=== PATIENT | female | born 1940 | race Caucasian/White ===

== ENCOUNTER 2017-09-27 17:24 | Inpatient (IN) | payer BC, OTHER ==
[~2017-09-27] VITALS: Ht 162.6 cm; Wt 87.6 kg
[~2017-09-27 17:24] MED LIST: ATOR10TA82 PO; CALC600T9 PO; CANA1TAB PO; INSDGI SQ; LISI-787 PO; METO-478 PO; OMEG-112 PO
[2017-09-27 21:00] VITALS: BP 115/70; PULSE 84; TEMP 36.7; O2SAT 97; BMI 31.6
[2017-09-27] MEDS ORDERED: LISIPOW PO (21:17)
[2017-09-27] MEDS ORDERED: CIPR1TAB11 PO (21:17)
[2017-09-27] MEDS ORDERED: EMPA1TAB3 PO (21:17)
[2017-09-27] MEDS ORDERED: INSDGI SC (21:17)
[2017-09-27] MEDS ORDERED: PIPERACILL/TAZOBAC IV 3.375 GM in DEXTROSE 5% 100ML 100 ML IV STA (22:13)
[2017-09-27] MEDS ORDERED: MAGNESIUM HYDROXIDE SUSP 30 ML UDC PO PRN (22:15)
[2017-09-27] MEDS ORDERED: ONDANSETRON INJ 2 MG/ML 2 ML VIAL IV PRN (22:15)
[2017-09-27] MEDS ORDERED: ALUMINUM/MAGNESIUM/SIMETH (MAALOX MAX) 30 ML UDC PO PRN (22:15)
[2017-09-27] MEDS ORDERED: PIPERACILL/TAZOBAC CONSULT ACTIVE PRN (22:15)
[2017-09-27] MEDS ORDERED: ACETAMINOPHEN 325 MG TAB PO PRN (22:15)
[2017-09-27] MEDS ORDERED: POLYETHYLENE (MIRALAX) 17 GM PACK PO PRN (22:15)
[2017-09-27] MEDS ORDERED: GLUCOSE 10 TABS/TUBE PO PRN (22:30)
[2017-09-27] MEDS ORDERED: GLUCAGON FOR INJ 1 MG VIAL SQ PRN (22:30)
[2017-09-27] MEDS ORDERED: GLUCOSE 40% GEL 15 GM TUBE PO PRN (22:30)
[2017-09-27] MEDS ORDERED: DEXTROSE 50% 50 ML SYR IV PRN (22:30)
--- NOTE | 2017-09-27 22:34 | History and Physical ---
History & Physical Date & Time of Service: Sep 27, 2017 at 22:17 Chief Complaint: Obstructing L Kidney Stone Primary Care Physician: Melissa Santos M.D. History of Present Illness Source: patient, hospital records 76 year old female admitted as a direct admit from [facility] secondary to left sided stone and pyelonephritis On Saturday she started having left sided back pain. She went to the doctor on and was diagnosed with pyelonephritis and was started on cipro. Today after getting off the toilet she felt dizzy and fell (no post ictal symptoms, urinary/bowel incontinence). She also had associated chills and nausea. She denied any dysuria or hematuria. She was therefore brought to the ED in [place] by ambulance. In the ED she was had a CT scan of her abdomen/pelvis which showed an left sided 8mm calculus w/ associated left hydronephrosis and fat stranding in the left lower quadrant. She had a WCC of 9.6, Creat of 2.0, BUN 34, lactic acid of 1.5, trop of .16 and an EKG showed sinus tachycardia. She was given a gram of IV rocephin, 1 L of IVF and Zofran for nausea Past Medical/Surgical History Medical Problems: (1) ARF (acute renal failure) (2) Cellulitis (3) Dehydration (4) Diverticulitis (5) Hyperkalemia (6) Kidney stone (7) Sinusitis (8) Uremia (9) Weakness (10) Weakness Surgical Problems: (1) History of abdominal surgery Family History Dad- CT Mom- MM Brother- CT at 48 Social History Smoking Status: Former Smoker Smokeless Tobacco Use: No Alcohol Use: none Drug Use: none Marital Status: Housing status: lives with significant other Occupational Status: retired Immunizations History of Influenza Vaccine: Unknown History of Tetanus Vaccine?: Unknown History of Pneumococcal: Unknown History of Hepatitis B Vaccine: Unknown Allergies Coded Allergies: Sulfa Antibiotics (Verified Allergy, Unknown, ., 10/13/13) Home Medications Scheduled Atorvastatin (Lipitor), 10 MG PO HS Ciprofloxacin Tab (Cipro), 500 MG PO BID Empagliflozin (Jardiance), 25 MG PO DAILY Insulin Glargine (Lantus), 45 SC QPM Lisinopril (Bulk) (Lisinopril), 20 MG PO DAILY Metoprolol Succinate (Toprol Xl), 50 MG PO HS Review of Systems Constitutional: + chills, + weakness, + fatigue, No fever, No weight loss Eyes: No worsening of vision, No eye pain ENT: No hearing loss, No unusual epistaxis, No sore throat Respiratory: No cough, No sputum, No shortness of breath, No dyspnea on exertion Cardiovascular: No chest pain, No edema, No palpitations Abdomen: + pain, + nausea, + diarrhea, No vomiting, No constipation, No GI bleeding Musculoskeletal: No joint pain, No muscle pain, No swelling, No calf pain Genitourinary - Female: No dysuria, No urinary frequency, No urinary urgency Endocrine: No fatigue, No excessive thirst, No excessive urination Hematologic / Lymphatic: No abnormal bleeding/bruising, No clotting problems, No swollen lymph nodes Physical Exam Vital Signs Date Time Temp Pulse Resp B/P (MAP) Pulse Ox O2 Delivery O2 Flow Rate FiO2 09/27/17 21:00 36.7 84 16 115/70 97 Room Air General Appearance: WD/WN, no apparent distress Head: normocephalic, atraumatic Eyes: normal inspection, PERRL ENT: hearing grossly normal, pharynx normal Neck: supple, no JVD, no carotid bruits, trachea midline Respiratory/Chest: lungs clear, no respiratory distress, no accessory muscle use Cardiovascular: regular rate, rhythm, no murmur, normal peripheral pulses Abdomen/GI: normal bowel sounds, soft, + tenderness (left upper quadrant tenderness) Back: normal inspection, no CVA tenderness, no muscle spasm Extremities/Musculoskelatal: normal inspection, no calf tenderness, no pedal edema, non-tender Neurologic/Psych: alert, normal mood/affect, normal reflexes, oriented x 3 Skin: normal color, warm/dry, no rash Diagnostics Laboratory Results Results Past 24 Hours Test 09/27/17 22:03 09/27/17 22:12 Range/Units Bedside Glucose 247 70-90 mg/dl Impression Assessment and Plan 76 year old female with a PMH of DM, HTN and HLD is here as a direct admit from [place] secondary to left ureteral stone and pyelonephritis Left ureteral stone w/ associated pyelonephritis - Zosyn 3.375 q6 IV - Maintenance IVF at 120mls/hr - Zofran 4mg q4 prn for nausea - Urology consult placed Elevated troponin - EKG showed sinus tachycardia - trop .16 - no hx of CT or angina - trend troponins q8 - echo ordered - check lipids and HbA1c SAVAGE on CKD Stage 4 - IVF of 120 ml/hr - Creatinine 20 and GFR 26 DMT2 - poc glucose 247 - give 40 units of lantus - hold home meds - order HbA1c - check bsg q4 HTN - continue lisinopril and metoprolol HLD - continue statin - check lipids DVT prophylaxis - lovenox 30mg subq FULL CODE Attending addendum: I have physically seen this patient, have supervised the medical residents activities, and agree with the H&P unless as otherwise noted. Assessment and Plan: Elevated troponin-- The patient will be admitted to telemetry for serial cardiac enzymes, serial EKG's, cardiac rhythm monitoring and a 2-D echocardiogram with Dopplers. Check a fasting lipid panel and hemoglobin A1c. Consult cardiology. Left ureteral stone/pyelonephritis/renal insufficiency-- Transferred from [facility] where initial study was performed. Normal saline at 100 mils per hour. Follow urine culture and sensitivity. Zosyn 3.375 mg IV every 12 hours. Zofran 4 mg IV every 6 hours as needed. Consult urology. Hypertension/renal insufficiency-- hold lisinopril, continue metoprolol. Remaining medications as above. . Advanced Directives Existing Advance Directive: No Existing Living Will: No Existing Power of Labeling Machine Operator: No Resuscitation Status VTE Prophylaxis Will order VTE Prophylaxis: Yes Social Service Consult None Apply
[2017-09-27] MEDS: SODIUM CHLORIDE 0.9% 1000ML 1,000 ML IV SCH (22:40)
[2017-09-27] MEDS: INSULIN GLARGINE SOLOSTAR 100 UNITS/ML 3 ML PEN SC SCH (22:45)
[2017-09-27 23:25] VITALS: BP 97/62; PULSE 92; TEMP 36.8; O2SAT 97
[2017-09-28] VITALS (9 sets, daily range): BP systolic 107–150; BP diastolic 63–80; PULSE 83–103; TEMP 37–37.8; O2SAT 92–97
[2017-09-28 00:01] LABS: BASO % 0.1 %; BASO ABS # 0.01 K/uL (0-0.2); EOS % 0.1 %; EOS ABS # 0.01 K/uL (0-0.5); HEMATOCRIT 34.7 % (37-47); HEMOGLOBIN 11.7 g/dL (12.0-16.0); IG# 0.03 K/uL (0.00-0.02); LYMPH % 11.6 %; LYMPH ABS # 0.94 K/uL (1.2-3.4); MEAN CELL VOLUME 90.4 fL (80-100); MEAN CORPUSCULAR HEMOGLOBIN 30.5 pg (25-34); MEAN CORPUSCULAR HGB CONC 33.7 g/dl (32-36); MEAN PLATELET VOLUME 11.9 fL (7.4-10.4); MONO % 4.3 %; MONO ABS # 0.35 K/uL (0.11-0.59); NEUT % 83.5 %; NEUT ABS # 6.75 K/uL (1.4-6.5); PLATELET COUNT 181 K/uL (130-400); RED CELL DISTRIBUTION WIDTH CV 14.6 % (11.5-14.5); RED CELL DISTRIBUTION WIDTH SD 48.6 fL (36.4-46.3); WHITE BLOOD COUNT 8.09 K/uL (4.8-10.8)
[2017-09-28 00:11] LABS: ALBUMIN 2.6 gm/dl (3.4-5.0); CALCIUM 8.2 mg/dl (8.5-10.1); CREATININE 1.78 mg/dl (0.60-1.20); TOTAL PROTEIN 6.6 gm/dl (6.4-8.2)
[2017-09-28 00:13] LABS: POTASSIUM 3.9 mmol/L (3.5-5.1)
[2017-09-28] MEDS: SODIUM CHLORIDE 0.9% 1000ML 1,000 ML IV SCH ×3 (06:14→17:28)
[2017-09-28] MEDS: PIPERACILL/TAZOBAC IV 3.375 GM in DEXTROSE 5% 100ML IV SCH ×3 (06:14→21:38)
[2017-09-28 07:19] LABS: BASO % 0.1 %; BASO ABS # 0.01 K/uL (0-0.2); EOS % 0.4 %; EOS ABS # 0.03 K/uL (0-0.5); HEMATOCRIT 33.9 % (37-47); HEMOGLOBIN 11.4 g/dL (12.0-16.0); IG# 0.02 K/uL (0.00-0.02); LYMPH ABS # 1.05 K/uL (1.2-3.4); MEAN CELL VOLUME 89.7 fL (80-100); MEAN CORPUSCULAR HEMOGLOBIN 30.2 pg (25-34); MEAN CORPUSCULAR HGB CONC 33.6 g/dl (32-36); MEAN PLATELET VOLUME 11.4 fL (7.4-10.4); MONO % 6.1 %; MONO ABS # 0.43 K/uL (0.11-0.59); NEUT % 78.1 %; NEUT ABS # 5.47 K/uL (1.4-6.5); PLATELET COUNT 164 K/uL (130-400); RED CELL DISTRIBUTION WIDTH CV 14.6 % (11.5-14.5); RED CELL DISTRIBUTION WIDTH SD 48.1 fL (36.4-46.3); WHITE BLOOD COUNT 7.01 K/uL (4.8-10.8)
[2017-09-28 07:29] LABS: INR 1.2 (0.9-1.1)
[2017-09-28 08:05] LABS: HEMOGLOBIN A1C 8.5 % (4.5-5.6)
[2017-09-28 08:06] LABS: ALBUMIN 2.3 gm/dl (3.4-5.0); CREATININE 1.53 mg/dl (0.60-1.20); POTASSIUM 3.1 mmol/L (3.5-5.1)
[2017-09-28] MEDS: ENOXAPARIN 30 MG/0.3 ML SYR SC SCH (08:59)
[2017-09-28] MEDS: LISINOPRIL 20 MG TAB PO SCH (08:59)
[2017-09-28] MEDS ORDERED: POTASSIUM CHLORIDE 20 MEQ TABCR PO STA (09:18)
--- NOTE | 2017-09-28 09:48 | Family Medicine Progress Note ---
Progress Note Date of Service Sep 28, 2017. Subjective Pt evaluation today including: conversation w/ patient, conversation w/ family Voiding: no voiding problems Reports is better Urinating okay No history of kidney stones Constitutional: No fever, No chills ENT: No hearing loss Respiratory: No cough, No sputum, No shortness of breath, No dyspnea on exertion Cardiovascular: No chest pain Abdomen: No pain, No nausea, No vomiting, No diarrhea, No constipation Musculoskeletal: No joint pain Female : No dysuria, No urinary frequency Objective Vital Signs Date Time Temp Pulse Resp B/P (MAP) Pulse Ox O2 Delivery O2 Flow Rate FiO2 09/28/17 16:43 37.7 93 20 137/78 (97) 95 Room Air 09/28/17 16:32 37.8 95 20 150/71 (97) 97 Room Air 09/28/17 16:10 36.5 95 16 132/75 95 Room Air 09/28/17 16:00 94 18 139/73 96 Room Air 09/28/17 15:55 143/82 09/28/17 15:53 36.8 107 16 140/117 99 Room Air 09/28/17 15:00 Room Air 09/28/17 11:15 Room Air 09/28/17 11:08 37.2 83 20 112/72 (85) 93 09/28/17 08:00 Room Air 09/28/17 07:10 37.6 83 18 107/67 (80) 93 09/28/17 03:09 37.2 86 20 114/63 (80) 92 Room Air 09/28/17 03:00 Room Air 09/28/17 00:00 Room Air 09/27/17 23:25 36.8 92 17 97/62 (74) 97 Room Air 09/27/17 21:00 36.7 84 16 115/70 97 Room Air Physical Exam General Appearance: no apparent distress ENT: hearing grossly normal Neck: no adenopathy Respiratory/Chest: lungs clear, normal breath sounds, no respiratory distress, no accessory muscle use Cardiovascular: regular rate, rhythm Abdomen: normal bowel sounds, non tender, soft Extremities: non-tender, normal inspection, no pedal edema, no calf tenderness Neurologic/Psychiatric: no motor/sensory deficits, alert, normal mood/affect Laboratory Results Last 24 Hours Test 09/27/17 22:03 09/27/17 23:10 09/28/17 06:09 09/28/17 06:50 Bedside Glucose 247 mg/dl 166 mg/dl White Blood Count 8.09 K/uL 7.01 K/uL Red Blood Count 3.84 M/uL 3.78 M/uL Hemoglobin 11.7 g/dL 11.4 g/dL Hematocrit 34.7 % 33.9 % Mean Corpuscular Volume 90.4 fL 89.7 fL Mean Corpuscular Hemoglobin 30.5 pg 30.2 pg Mean Corpuscular Hemoglobin Concent 33.7 g/dl 33.6 g/dl Platelet Count 181 K/uL 164 K/uL Mean Platelet Volume 11.9 fL 11.4 fL Neutrophils (%) (Auto) 83.5 % 78.1 % Lymphocytes (%) (Auto) 11.6 % 15.0 % Monocytes (%) (Auto) 4.3 % 6.1 % Eosinophils (%) (Auto) 0.1 % 0.4 % Basophils (%) (Auto) 0.1 % 0.1 % Neutrophils # (Auto) 6.75 K/uL 5.47 K/uL Lymphocytes # (Auto) 0.94 K/uL 1.05 K/uL Monocytes # (Auto) 0.35 K/uL 0.43 K/uL Eosinophils # (Auto) 0.01 K/uL 0.03 K/uL Basophils # (Auto) 0.01 K/uL 0.01 K/uL RDW Standard Deviation 48.6 fL 48.1 fL RDW Coefficient of Variation 14.6 % 14.6 % Immature Granulocyte % (Auto) 0.4 % 0.3 % Immature Granulocyte # (Auto) 0.03 K/uL 0.02 K/uL Hyposegmented Neutrophils 1+ Dohle Bodies 1+ Sodium Level 137 mmol/L 138 mmol/L Potassium Level 3.9 mmol/L 3.1 mmol/L Chloride Level 104 mmol/L 109 mmol/L Carbon Dioxide Level 20 mmol/L 18 mmol/L Anion Gap 13.0 mmol/L 11.0 mmol/L Blood Urea Nitrogen 34 mg/dl 32 mg/dl Creatinine 1.78 mg/dl 1.53 mg/dl Est Creatinine Clear Calc Drug Dose 28.1 ml/min 32.9 ml/min Estimated GFR () 31.6 37.9 Estimated GFR (Non- 27.2 32.7 BUN/Creatinine Ratio 19.2 20.7 Random Glucose 271 mg/dl 167 mg/dl Calcium Level 8.2 mg/dl 8.0 mg/dl Magnesium Level 1.7 mg/dl Total Bilirubin 0.5 mg/dl 0.4 mg/dl Aspartate Amino Transf (AST/SGOT) 21 U/L 18 U/L Alanine Aminotransferase (ALT/SGPT) 16 U/L 15 U/L Alkaline Phosphatase 88 U/L 81 U/L Total Protein 6.6 gm/dl 6.0 gm/dl Albumin 2.6 gm/dl 2.3 gm/dl Globulin 4.0 gm/dl 3.7 gm/dl Albumin/Globulin Ratio 0.7 0.6 Prothrombin Time 12.6 SECONDS Prothromb Time International Ratio 1.2 Estimated Average Glucose 197 mg/dl Hemoglobin A1c 8.5 % Troponin I 0.048 ng/ml Triglycerides Level 225 mg/dl Cholesterol Level 91 mg/dl HDL Cholesterol 10 mg/dl LDL Cholesterol, Calculated 36 mg/dl VLDL Cholesterol, Calculated 45 mg/dl Cholesterol/HDL Ratio 9.1 Test 09/28/17 11:11 09/28/17 13:43 09/28/17 15:41 09/28/17 16:18 Bedside Glucose 171 mg/dl 135 mg/dl Troponin I 0.022 ng/ml Urine Color YELLOW Urine Appearance TURBID Urine pH 5.0 Urine Specific [place] 1.023 Urine Protein NEG Urine Glucose (UA) 3+ Urine Ketones 1+ Urine Occult Blood 3+ Urine Nitrite NEG Urine Bilirubin NEG Urine Urobilinogen NEG Urine Leukocyte Esterase MODERATE Urine WBC (Auto) >30 /hpf Urine RBC (Auto) >30 /hpf Urine Hyaline Casts (Auto) 1-5 /lpf Urine Epithelial Cells (Auto) 10-20 /lpf Urine Bacteria (Auto) NEG Urine Yeast (Auto) Assessment and Plan 76 year old female with a PMH of DM, HTN and HLD is here as a direct admit from [facility] secondary to left ureteral stone and pyelonephritis Left ureteral stone w/ associated pyelonephritis - Zosyn 3.375 q6 IV - Maintenance IVF at 120mls/hr- monitor for fluid overload - Zofran 4mg q4 prn for nausea - O.R. this Afternoon- appreciate Urology consult Elevated troponin - EKG showed sinus tachycardia - trop .16 (upper end of reference range at [place] is 0.1) - no hx of HI or angina - trend troponins q8- slight elevation 0.048 - echo * Left ventricular systolic function is normal. * Grade I diastolic dysfunction, (abnormal relaxation pattern). * Right ventricular systolic pressure is normal. - Lipids acceptable - A1C of 8.5 - Appreciate cardiology reccs- nothing immediate to pursue cardiac wheeler in the hospital. However, does have risk factors (diabetes). Would continue outpatient management/consider stress test SAVAGE on CKD Stage 4 - IVF of 120 ml/hr - Creatinine 1.53- improved DMT2 - give 40 units of lantus - hold home meds - check bsg q4 HTN - continue lisinopril and metoprolol HLD - LDL at 36. - HDL at 10 - May consider decreasing or stopping statin if outpatient stress test is normal. (increased risk of brain bleeds?) DVT prophylaxis - lovenox 30mg subq FULL CODE Resident Physician Supervision Note: I interviewed and examined the patient. Discussed with Dr. Dudley and agree with findings and plan as documented in the note. Any exceptions or clarifications are listed here: None Documented By: Rodrick Clemons feeling better post cysto. no new complaints pain better vitals noted nad breathing unlabored no pallor or icterus sepsis from pyelo from retained stone - post cysto/stenting, on appropriate IV abx - improving elevated troponin - mild, likely demand ischemia from sepsis. consider stress test as outpt under baseline conditions mostly becuase she does have vascular risk w DM otherwise as above
--- NOTE | 2017-09-28 11:17 | ECHOCARDIOGRAM REPORT ---
*NOTICE TO RECEIVING CONSTITUTION PARTY AGENCY This information is strictly Confidential and protected under [place] law. [place] law prohibits you from making any further disclosure of this information unless further disclosure is expressly permitted by the written consent of the person to whom it pertains or is authorized by law. A general authorization for the release of medical or other information is not sufficient for this purpose. Hospital accepts no responsibility if the information is made available to any other person, INCLUDING THE PATIENT. Interpretation Summary * Name: MATT BENOIT Study Date: 09/28/2017 08:37 AM BP: 107/67 mmHg * Patient Location: .2T\S\S238\S\1 HR: 80 * : 1940 (M/d/yyyy) Gender: Female Height: 64 in * Age: 76 yrs Ethnicity: CA Weight: 184 lb * Ordering Physician: Abraham Kaur * Referring Physician: Kathy Davey * Performed By: Lola Koch RDCS * * Reason For Study: ELEVATED TROPONIN * BSA: 1.9 m2 * -- Conclusions -- * Left ventricular systolic function is normal. * Grade I diastolic dysfunction, (abnormal relaxation pattern). * Right ventricular systolic pressure is normal. Procedure Details * A complete two-dimensional transthoracic echocardiogram was performed (2D, M-mode, Doppler and color flow Doppler). Left Ventricle * The left ventricle is normal in size. * Ejection Fraction = 55-60%. * Left ventricular systolic function is normal. * Grade I diastolic dysfunction, (abnormal relaxation pattern). * The left ventricular wall motion is normal. Right Ventricle * The right ventricle is normal in size and function. * The right ventricular systolic function is normal as assessed by tricuspid annular plane systolic excursion (TAPSE) (normal >1.5 cm). Atria * The left atrial size is normal. * Right atrial size is normal. Mitral Valve * The mitral valve anatomy is normal. * Significant mitral regurgitation is absent. Tricuspid Valve * The tricuspid valve is not well visualized, but is grossly normal. * There is mild tricuspid regurgitation. * Right ventricular systolic pressure is normal. Aortic Valve * The aortic valve is normal in structure and function. * Non coronary cusp is poorly mobile * No hemodynamically significant valvular aortic stenosis. * There is no significant aortic regurgitation. Pulmonic Valve * The pulmonic valve is not well visualized. Great Vessels * The aortic root is normal size. Pericardium/Pleural * There is no pericardial effusion. Great Vessels * Normal inferior vena cava diameter and respiratory variation suggests normal central venous pressure. MMode 2D Measurements and Calculations IVSd 1.0 cm IVSs 1.5 cm LVIDd 3.5 cm LVIDs 2.4 cm LVPWd 1.8 cm LVPWs 2.1 cm IVS/LVPW 0.58 FS 31.0 % EDV(Teich) 52.5 ml ESV(Teich) 21.1 ml EF(Teich) 59.7 % EDV(cubed) 44.6 ml ESV(cubed) 14.6 ml EF(cubed) 67.2 % % IVS thick 45.8 % % LVPW thick 16.0 % LV mass(C)d 180.6 grams LV mass(C)dI 95.6 grams/m\S\2 LV mass(C)s 173.3 grams LV mass(C)sI 91.8 grams/m\S\2 SV(Teich) 31.4 ml SI(Teich) 16.6 ml/m\S\2 SV(cubed) 30.0 ml SI(cubed) 15.9 ml/m\S\2 Ao root diam 3.2 cm Ao root area 8.1 cm\S\2 LA dimension 3.5 cm LA/Ao 1.1 LVAd ap4 27.5 cm\S\2 LVLd ap4 7.6 cm EDV(MOD-sp4) 83.1 ml EDV(sp4-el) 83.9 ml LVAs ap4 15.4 cm\S\2 LVLs ap4 6.1 cm ESV(MOD-sp4) 33.2 ml ESV(sp4-el) 32.9 ml EF(MOD-sp4) 60.1 % EF(sp4-el) 60.8 % LVAd ap2 23.4 cm\S\2 LVLd ap2 7.6 cm EDV(MOD-sp2) 63.0 ml EDV(sp2-el) 61.3 ml LVAs ap2 13.9 cm\S\2 LVLs ap2 6.2 cm ESV(MOD-sp2) 27.4 ml ESV(sp2-el) 26.3 ml EF(MOD-sp2) 56.5 % EF(sp2-el) 57.1 % LVLd %diff -0.35 % EDV(MOD-bp) 72.2 ml LVLs %diff 2.6 % ESV(MOD-bp) 30.7 ml EF(MOD-bp) 57.5 % SV(MOD-sp4) 50.0 ml SI(MOD-sp4) 26.5 ml/m\S\2 SV(MOD-sp2) 35.6 ml SI(MOD-sp2) 18.8 ml/m\S\2 SV(MOD-bp) 41.5 ml SI(MOD-bp) 22.0 ml/m\S\2 SV(sp4-el) 51.0 ml SI(sp4-el) 27.0 ml/m\S\2 SV(sp2-el) 35.0 ml SI(sp2-el) 18.5 ml/m\S\2 Doppler Measurements and Calculations MV E max delfina 99.6 cm/sec MV A max delfina 114.6 cm/sec MV E/A 0.87 MV dec time 0.24 sec Ao V2 max 211.2 cm/sec Ao max PG 17.8 mmHg Ao max PG (full) 11.3 mmHg Ao V2 mean 140.8 cm/sec Ao mean PG 9.5 mmHg Ao mean PG (full) 6.2 mmHg Ao V2 VTI 41.1 cm LV V1 max PG 6.6 mmHg LV V1 mean PG 3.3 mmHg LV V1 max 128.3 cm/sec LV V1 mean 83.0 cm/sec LV V1 VTI 28.1 cm SV(Ao) 330.8 ml SI(Ao) 175.2 ml/m\S\2 TR max delfina 255.1 cm/sec
--- NOTE | 2017-09-28 12:04 | Cardiology Consultation ---
Cardiology Consultation Date of Consultation: Sep 28, 2017. Requesting Physician: Kaci Reason for Consultation: elevated troponin Pt evaluation today including: conversation w/ patient, conversation w/ family , physical exam, chart review, lab review, review of studies, review of inpatient medication list History of Present Illness The patient is a 76-year-old woman without a known history of cardiac disease who presented to an outside facility several days ago with symptoms of left flank discomfort and chills. The patient was felt to have a urinary tract infection associated with a renal calculus and was started on antibiotic therapy. Over the next day or 2 the patient developed significant weakness. Her flank pain had resolved at that point. She has not report overt dysuria. She has not noticed any blood in her urine. She did not report subjective fevers. Based on her progressive weakness the patient returned to [facility] where she was felt to have pyelonephritis and sent to [facility] for an additional evaluation. At some point the patient had serum studies which included a troponin. This was abnormal. As result she was felt to require a cardiology evaluation. Patient denies any symptoms of chest discomfort. She has not had symptoms of chest pain or shortness of breath. She is a fairly sedentary individual who was accustomed to routine housework but not severe exertion. She has not report any limiting symptoms recently with the exception of the weakness noted above. She has not report limiting dyspnea or chest discomfort. She is not reporting any orthopnea or paroxysmal nocturnal dyspnea. She sleeps poorly but does sleep flat in bed. She has not been aware of any palpitations or rapid heartbeats. She has not report any dizziness or lightheadedness. She has not noticed any swelling in her lower extremities. She feels that she may have lost 5 lb recently. Past Medical/Surgical History Diabetes mellitus Nephrolithiasis Diverticulosis Hypertension Hyperlipidemia Past surgical history Bowel resection and ileostomy with reanastomosis Family History Significant for premature coronary disease Social History Smoking Status: Former Smoker History of Alcohol Use: No (Once a year) Currently lives at home with her family. Homemaker Review of Systems Per HPI. No change in bowel habits. Patient has had an element of anorexia and poor fluid intake recently All Other Systems: Reviewed and Negative Allergies Coded Allergies: Sulfa Antibiotics (Verified Allergy, Unknown, ., 10/13/13) Medications Current Inpatient Medications Medications (Trade) Dose Ordered Sig/Maciel Route Start Time Stop Time Status Last Admin Dose Admin Enoxaparin Sodium (Lovenox Inj) 30 mg Q24H SC 09/28/17 09:00 10/28/17 08:59 09/28/17 08:59 30 MG Acetaminophen (Tylenol Tab) 650 mg Q4H PRN PO 09/27/17 22:15 10/27/17 22:14 09/28/17 01:24 650 MG Al Hydrox/Mg Hydrox/Simethicone (Maalox Max Susp) 15 ml Q4H PRN PO 09/27/17 22:15 10/27/17 22:14 Magnesium Hydroxide (Milk Of Magnesia Susp) 30 ml Q12H PRN PO 09/27/17 22:15 10/27/17 22:14 Polyethylene (Miralax Powder Packet) 17 gm DAILY PRN PO 09/27/17 22:15 10/27/17 22:14 Sodium Chloride 1,000 ml @ 120 mls/hr Q8H20M IV 09/27/17 22:15 10/27/17 22:14 09/28/17 06:14 120 MLS/HR Miscellaneous Information (Consult) 1 ea UD PRN N/A 09/27/17 22:15 10/27/17 22:14 Atorvastatin Calcium (Lipitor Tab) 10 mg HS PO 09/28/17 21:00 10/28/17 20:59 Insulin Glargine (Lantus Solostar Pen) 40 units QPM SC 09/27/17 22:15 10/27/17 22:14 09/27/17 22:45 40 UNITS Metoprolol Succinate (Toprol Xl Tab) 50 mg HS PO 09/28/17 21:00 10/28/17 20:59 Lisinopril (Zestril Tab) 20 mg DAILY PO 09/28/17 09:00 10/28/17 08:59 09/28/17 08:59 20 MG Glucose (Glucose 40% Gel) 15-30 GRAMS 15 GRAMS... UD PRN PO 09/27/17 22:30 10/27/17 22:29 Glucose (Glucose Chew Tab) 4-8 Tablets 4 Tabl... UD PRN PO 09/27/17 22:30 10/27/17 22:29 Dextrose (Dextrose 50% 50ML Syringe) 25-50ML OF 50% DW IV FOR... UD PRN IV 09/27/17 22:30 10/27/17 22:29 Glucagon (Glucagon Inj) 1 mg UD PRN SQ 09/27/17 22:30 10/27/17 22:29 Ondansetron HCl (Zofran Inj) 4 mg Q4H PRN IV 09/27/17 22:30 10/27/17 22:29 Piperacillin Sod/ Tazobactam Sod 3.375 gm/Dextrose 115 ml @ 28.75 mls/ hr Q8 IV 09/28/17 06:00 10/08/17 05:59 09/28/17 06:14 28.75 MLS/HR Physical Exam Vital Signs Past 12 Hours Date Time Temp Pulse Resp B/P (MAP) Pulse Ox O2 Delivery O2 Flow Rate FiO2 09/28/17 11:15 Room Air 09/28/17 11:08 37.2 83 20 112/72 (85) 93 09/28/17 08:00 Room Air 09/28/17 07:10 37.6 83 18 107/67 (80) 93 09/28/17 03:09 37.2 86 20 114/63 (80) 92 Room Air 09/28/17 03:00 Room Air 09/28/17 00:00 Room Air She is alert and oriented x3. Mood affect appear normal. She answered all questions appropriately. HEENT: Sclerae are anicteric. Pupils are equal and reactive to light and accommodation. Extraocular movements were intact. Neuro: Cranial nerves intact Neck: Examination of the submandibular region did not reveal any significant lymphadenopathy. Carotids are palpable bilaterally and free of bruits on auscultation. There was no evidence of jugular venous distention. The thyroid was not enlarged. Lungs: Lungs are clear to auscultation bilaterally. There are no rales wheezes or rhonchi. She has normal respiratory effort without use of accessory muscles. There is normal pulmonary excursion. Cardiac: The rhythm was regular. S1 and S2 were normal. Crescendo systolic murmur. The PMI was not markedly displaced on palpation. Abdomen: The abdomen was soft and nontender. Extremities: Patient has bilateral radial pulses that are equal in intensity. There is no evidence cyanosis or clubbing. There was no evidence of significant peripheral edema bilaterally. Skin: There are no rashes noted on examination today. Data Laboratory Results: Last 24 Hours Test 09/27/17 22:03 09/27/17 23:10 09/28/17 06:09 09/28/17 06:50 Bedside Glucose 247 mg/dl 166 mg/dl White Blood Count 8.09 K/uL 7.01 K/uL Red Blood Count 3.84 M/uL 3.78 M/uL Hemoglobin 11.7 g/dL 11.4 g/dL Hematocrit 34.7 % 33.9 % Mean Corpuscular Volume 90.4 fL 89.7 fL Mean Corpuscular Hemoglobin 30.5 pg 30.2 pg Mean Corpuscular Hemoglobin Concent 33.7 g/dl 33.6 g/dl Platelet Count 181 K/uL 164 K/uL Mean Platelet Volume 11.9 fL 11.4 fL Neutrophils (%) (Auto) 83.5 % 78.1 % Lymphocytes (%) (Auto) 11.6 % 15.0 % Monocytes (%) (Auto) 4.3 % 6.1 % Eosinophils (%) (Auto) 0.1 % 0.4 % Basophils (%) (Auto) 0.1 % 0.1 % Neutrophils # (Auto) 6.75 K/uL 5.47 K/uL Lymphocytes # (Auto) 0.94 K/uL 1.05 K/uL Monocytes # (Auto) 0.35 K/uL 0.43 K/uL Eosinophils # (Auto) 0.01 K/uL 0.03 K/uL Basophils # (Auto) 0.01 K/uL 0.01 K/uL RDW Standard Deviation 48.6 fL 48.1 fL RDW Coefficient of Variation 14.6 % 14.6 % Immature Granulocyte % (Auto) 0.4 % 0.3 % Immature Granulocyte # (Auto) 0.03 K/uL 0.02 K/uL Hyposegmented Neutrophils 1+ Dohle Bodies 1+ Sodium Level 137 mmol/L 138 mmol/L Potassium Level 3.9 mmol/L 3.1 mmol/L Chloride Level 104 mmol/L 109 mmol/L Carbon Dioxide Level 20 mmol/L 18 mmol/L Anion Gap 13.0 mmol/L 11.0 mmol/L Blood Urea Nitrogen 34 mg/dl 32 mg/dl Creatinine 1.78 mg/dl 1.53 mg/dl Est Creatinine Clear Calc Drug Dose 28.1 ml/min 32.9 ml/min Estimated GFR () 31.6 37.9 Estimated GFR (Non- 27.2 32.7 BUN/Creatinine Ratio 19.2 20.7 Random Glucose 271 mg/dl 167 mg/dl Calcium Level 8.2 mg/dl 8.0 mg/dl Magnesium Level 1.7 mg/dl Total Bilirubin 0.5 mg/dl 0.4 mg/dl Aspartate Amino Transf (AST/SGOT) 21 U/L 18 U/L Alanine Aminotransferase (ALT/SGPT) 16 U/L 15 U/L Alkaline Phosphatase 88 U/L 81 U/L Total Protein 6.6 gm/dl 6.0 gm/dl Albumin 2.6 gm/dl 2.3 gm/dl Globulin 4.0 gm/dl 3.7 gm/dl Albumin/Globulin Ratio 0.7 0.6 Prothrombin Time 12.6 SECONDS Prothromb Time International Ratio 1.2 Estimated Average Glucose 197 mg/dl Hemoglobin A1c 8.5 % Troponin I 0.048 ng/ml Triglycerides Level 225 mg/dl Cholesterol Level 91 mg/dl HDL Cholesterol 10 mg/dl LDL Cholesterol, Calculated 36 mg/dl VLDL Cholesterol, Calculated 45 mg/dl Cholesterol/HDL Ratio 9.1 Test 09/28/17 11:11 Bedside Glucose 171 mg/dl Imaging: CT scan was reviewed from the outside facility. This revealed a renal calculus av 8 mm in size EKG: Normal sinus rhythm. Normal EKG Telemetry reviewed: No arrhythmia Echocardiogram performed today revealed stage I diastolic dysfunction with preserved LV systolic function. Normal wall motion. Aortic sclerosis without stenosis Assessment & Plan 1. Elevated cardiac troponin: The patient does not endorse symptoms consistent with a recent acute coronary syndrome. I suppose the troponin was drawn due to complaints of weakness. There is not appear to be any other symptoms suggestive of cardiac disease. She has preserved LV systolic function without wall motion abnormality. While she is quite sedentary she does not endorse symptoms consistent with coronary insufficiency or angina. The actual elevation in her cardiac biomarkers is exceedingly low. A review of her record from [facility] suggested she did experience some period of hypotension. I do not think this elevation represents a recent acute coronary syndrome. I think she is at low risk otherwise for significant coronary events although she likely has an element of fixed coronary disease based on her comorbidities. I do not feel she requires any additional testing currently. She should continue with standard aggressive cardiac risk factor modification.
[2017-09-28] MEDS: ONDANSETRON INJ 2 MG/ML 2 ML VIAL IV PRN (12:50)
--- NOTE | 2017-09-28 13:32 | Urology Consultation ---
History General Date of Service: Sep 28, 2017. Chief Complaint: Obs Stone Left, Sepsis, UTI Primary Care Physician: Melissa Santos M.D. Pt seen a urologist before?: No History of Present Illness presented with sudden onset of sever pain in flank radiating to groin. found to be hypotensive at [facility] and lactic acidosis. Had been resus and workedup and incidentally found to have left obs stone. Had some bowel issues with history of bowel related issues. Previous imaging had seen stone on left kidney. 8 mm obs stone on left per report. Pain improved since hospitilization. improved discomfort. No N/v. Has been voiding. No blood. No severe dysuria. No history of stone in past. Imaging Imaging: CT Laboratory Labs were reviewed and are within normal limits unless listed below. Labs are available in the chart and at [facility] Past History heart disease, urinary tract infection, vascular disease Past Surgical History: ileostomy Social History Hx Tobacco Use In Past Year?: No Marital status: Housing status: lives with significant other Occupation status: retired Immunizations History of Influenza Vaccine: Unknown History of Tetanus Vaccine?: Unknown History of Pneumococcal: Unknown History of Hepatitis B Vaccine: Unknown Allergies Coded Allergies: Sulfa Antibiotics (Verified Allergy, Unknown, ., 10/13/13) Medications Home Medications: Home Meds and Scripts Medications Dose Route/Sig Max Daily Dose Days Date Category Lisinopril (Lisinopril (Bulk)) 1 Pow 20 Mg PO DAILY 09/27/17 Reported Lantus (Insulin Glargine) 100 Unit/Ml Inj 45 SC QPM 09/27/17 Reported Jardiance (Empagliflozin) 25 Mg Tab 25 Mg PO DAILY 09/27/17 Reported Cipro (Ciprofloxacin) 250 Mg Tab 500 Mg PO BID 10 09/27/17 Reported Lipitor (Atorvastatin Calcium) 10 Mg Tab 10 Mg PO HS 12/03/14 Reported Toprol Xl (Metoprolol Succinate) 25 Mg Tab 50 Mg PO HS 10/14/13 Reported Inpatient Medications: Current Inpatient Medications Medications (Trade) Dose Ordered Sig/Maciel Route Start Time Stop Time Status Last Admin Dose Admin Enoxaparin Sodium (Lovenox Inj) 30 mg Q24H SC 09/28/17 09:00 10/28/17 08:59 09/28/17 08:59 30 MG Acetaminophen (Tylenol Tab) 650 mg Q4H PRN PO 09/27/17 22:15 10/27/17 22:14 09/28/17 01:24 650 MG Al Hydrox/Mg Hydrox/Simethicone (Maalox Max Susp) 15 ml Q4H PRN PO 09/27/17 22:15 10/27/17 22:14 Magnesium Hydroxide (Milk Of Magnesia Susp) 30 ml Q12H PRN PO 09/27/17 22:15 10/27/17 22:14 Polyethylene (Miralax Powder Packet) 17 gm DAILY PRN PO 09/27/17 22:15 10/27/17 22:14 Sodium Chloride 1,000 ml @ 120 mls/hr Q8H20M IV 09/27/17 22:15 10/27/17 22:14 09/28/17 06:14 120 MLS/HR Miscellaneous Information (Consult) 1 ea UD PRN N/A 09/27/17 22:15 10/27/17 22:14 Atorvastatin Calcium (Lipitor Tab) 10 mg HS PO 09/28/17 21:00 10/28/17 20:59 Insulin Glargine (Lantus Solostar Pen) 40 units QPM SC 09/27/17 22:15 10/27/17 22:14 09/27/17 22:45 40 UNITS Metoprolol Succinate (Toprol Xl Tab) 50 mg HS PO 09/28/17 21:00 10/28/17 20:59 Lisinopril (Zestril Tab) 20 mg DAILY PO 09/28/17 09:00 10/28/17 08:59 09/28/17 08:59 20 MG Glucose (Glucose 40% Gel) 15-30 GRAMS 15 GRAMS... UD PRN PO 09/27/17 22:30 10/27/17 22:29 Glucose (Glucose Chew Tab) 4-8 Tablets 4 Tabl... UD PRN PO 09/27/17 22:30 10/27/17 22:29 Dextrose (Dextrose 50% 50ML Syringe) 25-50ML OF 50% DW IV FOR... UD PRN IV 09/27/17 22:30 10/27/17 22:29 Glucagon (Glucagon Inj) 1 mg UD PRN SQ 09/27/17 22:30 10/27/17 22:29 Ondansetron HCl (Zofran Inj) 4 mg Q4H PRN IV 09/27/17 22:30 10/27/17 22:29 09/28/17 12:50 4 MG Piperacillin Sod/ Tazobactam Sod 3.375 gm/Dextrose 115 ml @ 28.75 mls/ hr Q8 IV 09/28/17 06:00 10/08/17 05:59 09/28/17 06:14 28.75 MLS/HR Review of Systems Review of Systems All Other Systems: Reviewed and Negative Additional Comments: All reviewed. Pertinent values in HPI Physical Exam Vital Signs: Vital Signs Past 12 Hours Date Time Temp Pulse Resp B/P (MAP) Pulse Ox O2 Delivery O2 Flow Rate FiO2 09/28/17 11:15 Room Air 09/28/17 11:08 37.2 83 20 112/72 (85) 93 09/28/17 08:00 Room Air 09/28/17 07:10 37.6 83 18 107/67 (80) 93 09/28/17 03:09 37.2 86 20 114/63 (80) 92 Room Air 09/28/17 03:00 Room Air Physical Exam: General Appearance: WD/WN, no apparent distress Eyes: bilateral eyes normal inspection ENT: normal ENT inspection, hearing grossly normal Neck: supple, no JVD Respiratory/Chest: chest non-tender, no respiratory distress, no accessory muscle use Cardiovascular: regular rate, rhythm Gastrointestinal: Abdomen: normal abdomen Bladder: normal bladder Extremities: normal range of motion, non-tender, normal inspection Neurologic/Psychiatric: 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 Obst Stone Left 2. Sepsis 3. Hypotension 4. Elev Troponin 5. History of Bowel issues. Discussed options at length. Discussed observation vs stent placement. Patient on broad spec antibiotics. Recommend continuing. will need likely 10-14 days of Abx. Plan to treat. Will schedule urgent stent placement for maximization of drainage. Will likely need stone treated once infection cleared. Continue supportive care. Pressures improved with resus. Continue close monitoring. Cardiology assessment in progress.
[2017-09-28] MEDS ORDERED: PHENYLEPHRINE HCL INJ 10 MG/ML VIAL ONE (14:40)
[2017-09-28] MEDS ORDERED: PROPOFOL IV EMULSION 10 MG/ML 20 ML VIAL IV ONE (14:42)
[2017-09-28] MEDS ORDERED: FENTANYL CITRATE INJ 50 MCG/1 ML 2 ML VIAL IV PRN (15:15)
[2017-09-28] MEDS ORDERED: HYDROmorphone INJ 1 MG/ML SYR IV PRN (15:15)
[2017-09-28] MEDS ORDERED: ATROPINE SULFATE 0.1 MG/ML 5ML SYR IV PRN (15:15)
[2017-09-28] MEDS ORDERED: EpHEDrine SULFATE INJ 50 MG/ML AMP IV PRN (15:15)
[2017-09-28] MEDS ORDERED: Cysto-Conray II 17.2% 250ML BOTTLE ONE (15:15)
[2017-09-28] MEDS ORDERED: PHENYLEPHRINE 100MCG/ML 5ML SYR IV PRN (15:15)
[2017-09-28] MEDS ORDERED: ONDANSETRON INJ 2 MG/ML 2 ML VIAL IV PRN (15:15)
[2017-09-28] MEDS ORDERED: KETAMINE HCL INJ 50 MG/ML 10 ML VIAL ONE (15:18)
[2017-09-28] MEDS ORDERED: MIDAZOLAM HCL 1 MG/ML 2ML VIAL ONE (15:18)
[2017-09-28] MEDS ORDERED: FENTANYL CITRATE INJ 50 MCG/1 ML 2 ML VIAL ONE (15:18)
--- NOTE | 2017-09-28 15:47 | [facility] Operative Report ---
Operative Report Operative Date Sep 28, 2017. Pre-Operative Diagnosis Obst Left Stone Post-Operative Diagnosis Same Procedure(s) Performed Cystoscopy and left retrograde pyelogram with stent placement. Surgeon Neil Estimated Blood Loss Minimal Findings Obst Left Stone Specimens Urine Left Kidney Drains 6Fr Multilength Double J on left. Anesthesia Type MAC Complication(s) none Disposition Recovery Room / PACU Indications Obst stone with UTI, hypotension, lactic acidosis, and likely sepsis. Risks and benefits discussed at length. Description of Procedure Patient was consented and brought back to the operating room. Patient was placed under anesthesia in the supine position and moved to the dorsal lithotomy position. Patient was prepped and draped in the regular sterile fashion. A time out was completed. A 30degree Cystoscope was placed into the bladder and the entire bladder was examined. The UO's were identified. The left was cannulized with a catheter and a retrograde pyelogram was completed. Purulent urine was collected and sent from the left kidney. A wire was then placed. With the wire in place, a 6 Fr Multi length Double J stent was placed. A large amount of purulence was appreciated to drain from the left pelvis. It was confirmed with fluoroscopy. With the stent in place, the bladder was emptied. The scope was removed. The patient was cleaned, aroused from anesthesia, and transferred to the pacu in stable condition having tolerated the procedure well with no complications. I was present and participated in all aspects of the procedure. The patient will be monitored in the PACU until transferred. I attest to the content of the Intraoperative Record and any orders documented therein. Any exceptions are noted below.
--- NOTE | 2017-09-28 16:05 | DIAGNOSTIC IMAGING REPORT ---
RETROGRADE INCLUDES KUB CLINICAL HISTORY: STENT PLACEMENT TECHNIQUE: Image intensifier COMPARISON STUDY: None FINDINGS: Retrograde opacification of the left upper urinary tract followed by successful stent placement IMPRESSION: Left ureteral stent placement The above report was generated using voice recognition software. It may contain grammatical, syntax or spelling errors. Electronically signed by: Juan Olsen M.D. 09/28/2017 4:04 PM Dictated Date/Time: 09/28/2017 4:03 PM
--- NOTE | 2017-09-28 16:10 | Anesthesiology Progress Note ---
Anesthesia Post Op Note Date & Time Sep 28, 2017 at 16:10 Vital Signs Pain Intensity: 0 Vital Signs Past 12 Hours Date Time Temp Pulse Resp B/P (MAP) Pulse Ox O2 Delivery O2 Flow Rate FiO2 09/28/17 16:00 94 18 139/73 96 Room Air 09/28/17 15:55 143/82 09/28/17 15:53 36.8 107 16 140/117 99 Room Air 09/28/17 15:00 Room Air 09/28/17 11:15 Room Air 09/28/17 11:08 37.2 83 20 112/72 (85) 93 09/28/17 08:00 Room Air 09/28/17 07:10 37.6 83 18 107/67 (80) 93 Notes Mental Status: alert / awake / arousable, participated in evaluation Pt Amnestic to Procedure: Yes Nausea / Vomiting: adequately controlled Pain: adequately controlled Airway Patency, RR, SpO2: stable & adequate BP & HR: stable & adequate Hydration State: stable & adequate Anesthetic Complications: no major complications apparent
[2017-09-28] MEDS ORDERED: POTASSIUM CHLORIDE 20 MEQ TABCR PO ONE (17:45)
[2017-09-28] MEDS: METOPROLOL SUCC 25MG EXT REL TAB PO SCH (20:33)
[2017-09-28] MEDS: ATORVASTATIN 10 MG TAB PO SCH (20:33)
[2017-09-28] MEDS: INSULIN GLARGINE SOLOSTAR 100 UNITS/ML 3 ML PEN SC SCH (20:34)
[2017-09-29 03:31] VITALS: BP 116/69; PULSE 75; TEMP 36.5; O2SAT 95
[2017-09-29] MEDS: PIPERACILL/TAZOBAC IV 3.375 GM in DEXTROSE 5% 100ML IV SCH ×3 (06:18→21:09)
[2017-09-29] MEDS: LISINOPRIL 20 MG TAB PO SCH (07:17)
[2017-09-29] MEDS: ENOXAPARIN 30 MG/0.3 ML SYR SC SCH (07:18)
[2017-09-29 07:37] VITALS: BP 139/73; PULSE 76; TEMP 36.7; O2SAT 95
[2017-09-29 08:33] LABS: BASO % 0.3 %; BASO ABS # 0.02 K/uL (0-0.2); EOS % 1.5 %; EOS ABS # 0.11 K/uL (0-0.5); HEMATOCRIT 32.9 % (37-47); IG# 0.02 K/uL (0.00-0.02); LYMPH ABS # 1.43 K/uL (1.2-3.4); MEAN CELL VOLUME 90.4 fL (80-100); MEAN CORPUSCULAR HEMOGLOBIN 30.2 pg (25-34); MEAN CORPUSCULAR HGB CONC 33.4 g/dl (32-36); MEAN PLATELET VOLUME 11.3 fL (7.4-10.4); MONO % 6.8 %; MONO ABS # 0.51 K/uL (0.11-0.59); NEUT % 72.1 %; NEUT ABS # 5.43 K/uL (1.4-6.5); PLATELET COUNT 176 K/uL (130-400); WHITE BLOOD COUNT 7.52 K/uL (4.8-10.8)
[2017-09-29 09:09] LABS: CALCIUM 8.1 mg/dl (8.5-10.1); CREATININE 0.84 mg/dl (0.60-1.20); POTASSIUM 3.5 mmol/L (3.5-5.1)
--- NOTE | 2017-09-29 10:38 | Progress Note ---
Subjective Date of Service: Sep 29, 2017. Subjective Pt evaluation today including: conversation w/ patient, conversation w/ family , physical exam, chart review, lab review, review of studies Pain: Tolerated PO Intake: Good POD1 s/p Stent left for septic obs stone. Mild to mod pain in waves. No major issues. Mild blood in urine with cloudy appearance. No severe fevers or chills. Ambulating Review of Systems All Other Systems: Reviewed and Negative Objective Vital Signs Date Time Temp Pulse Resp B/P (MAP) Pulse Ox O2 Delivery O2 Flow Rate FiO2 09/29/17 08:00 Room Air 09/29/17 07:37 36.7 76 18 139/73 (95) 95 Room Air 09/29/17 04:10 Room Air 09/29/17 03:31 36.5 75 17 116/69 (85) 95 Room Air 09/28/17 23:05 37.0 92 20 126/71 (89) 93 Room Air 09/28/17 23:00 Room Air 09/28/17 19:45 Room Air 09/28/17 19:22 37.4 92 20 148/76 (100) 95 Room Air 09/28/17 17:34 37.3 103 20 145/80 (101) 95 Room Air 09/28/17 17:19 37.7 97 20 146/80 (102) 94 Room Air 09/28/17 16:43 37.7 93 20 137/78 (97) 95 Room Air 09/28/17 16:32 37.8 95 20 150/71 (97) 97 Room Air 09/28/17 16:10 36.5 95 16 132/75 95 Room Air 09/28/17 16:00 94 18 139/73 96 Room Air 09/28/17 15:55 143/82 09/28/17 15:53 36.8 107 16 140/117 99 Room Air 09/28/17 15:00 Room Air 09/28/17 11:15 Room Air 09/28/17 11:08 37.2 83 20 112/72 (85) 93 Physical Exam General Appearance: WD/WN, no apparent distress Eyes: normal inspection ENT: normal ENT inspection Neck: supple, no JVD Respiratory/Chest: chest non-tender, no respiratory distress, no accessory muscle use Cardiovascular: regular rate, rhythm Abdomen: non tender, soft Extremities: normal range of motion, non-tender, normal inspection, no pedal edema, no calf tenderness Neurologic/Psychiatric: 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, no motor/sensory deficits, alert, normal mood/affect, oriented x 3 Skin: normal color, warm/dry, no rash Lymphatic: no adenopathy Laboratory Results Last 24 Hours Test 09/28/17 11:11 09/28/17 13:43 09/28/17 15:41 09/28/17 16:18 Bedside Glucose 171 mg/dl 135 mg/dl Troponin I 0.022 ng/ml Urine Color YELLOW Urine Appearance TURBID Urine pH 5.0 Urine Specific [employer] 1.023 Urine Protein NEG Urine Glucose (UA) 3+ Urine Ketones 1+ Urine Occult Blood 3+ Urine Nitrite NEG Urine Bilirubin NEG Urine Urobilinogen NEG Urine Leukocyte Esterase MODERATE Urine WBC (Auto) >30 /hpf Urine RBC (Auto) >30 /hpf Urine Hyaline Casts (Auto) 1-5 /lpf Urine Epithelial Cells (Auto) 10-20 /lpf Urine Bacteria (Auto) NEG Urine Yeast (Auto) Test 09/28/17 20:14 09/28/17 21:53 09/29/17 06:17 09/29/17 08:03 Bedside Glucose 170 mg/dl 104 mg/dl Troponin I 0.029 ng/ml White Blood Count 7.52 K/uL Red Blood Count 3.64 M/uL Hemoglobin 11.0 g/dL Hematocrit 32.9 % Mean Corpuscular Volume 90.4 fL Mean Corpuscular Hemoglobin 30.2 pg Mean Corpuscular Hemoglobin Concent 33.4 g/dl Platelet Count 176 K/uL Mean Platelet Volume 11.3 fL Neutrophils (%) (Auto) 72.1 % Lymphocytes (%) (Auto) 19.0 % Monocytes (%) (Auto) 6.8 % Eosinophils (%) (Auto) 1.5 % Basophils (%) (Auto) 0.3 % Neutrophils # (Auto) 5.43 K/uL Lymphocytes # (Auto) 1.43 K/uL Monocytes # (Auto) 0.51 K/uL Eosinophils # (Auto) 0.11 K/uL Basophils # (Auto) 0.02 K/uL RDW Standard Deviation 50.0 fL RDW Coefficient of Variation 15.0 % Immature Granulocyte % (Auto) 0.3 % Immature Granulocyte # (Auto) 0.02 K/uL Sodium Level 137 mmol/L Potassium Level 3.5 mmol/L Chloride Level 110 mmol/L Carbon Dioxide Level 19 mmol/L Anion Gap 8.0 mmol/L Blood Urea Nitrogen 22 mg/dl Creatinine 0.84 mg/dl Est Creatinine Clear Calc Drug Dose 61.1 ml/min Estimated GFR () 78.2 Estimated GFR (Non- 67.5 BUN/Creatinine Ratio 26.4 Random Glucose 144 mg/dl Calcium Level 8.1 mg/dl Assessment and Plan 1. Sepsis 2. Obs Left Stone 3. Pyelo 4. Elev Troponin Patient improving since stent. Increase activity. Continue diet. WIll need 10-14 days of antibiotics. Deesculate once species known. Change to PO as able. Follow up as out patient to discuss stone treatment.
[2017-09-29] MEDS: SODIUM CHLORIDE 0.9% 1000ML 1,000 ML IV SCH (10:48)
[2017-09-29 11:50] VITALS: BP 114/72; PULSE 73; TEMP 37.1; O2SAT 95
[2017-09-29 15:07] VITALS: BP 155/74; PULSE 58; TEMP 36.7; O2SAT 90
--- NOTE | 2017-09-29 15:56 | Family Medicine Progress Note ---
Progress Note Date of Service Sep 29, 2017. Subjective Pt evaluation today including: conversation w/ patient Voiding: no voiding problems Feeling much better today No pain or urinary symptoms Constitutional: No fever, No chills Eyes: No worsening of vision ENT: No hearing loss Respiratory: No cough, No sputum, No wheezing, No shortness of breath, No dyspnea on exertion Cardiovascular: No chest pain Abdomen: No pain, No nausea, No vomiting, No diarrhea, No constipation Female : No dysuria, No urinary frequency Medications Medications (Trade) Dose Ordered Sig/Maciel Route Start Time Stop Time Status Last Admin Dose Admin Atorvastatin Calcium (Lipitor Tab) 10 mg HS PO 09/28/17 21:00 10/28/17 20:59 09/28/17 20:33 10 MG Metoprolol Succinate (Toprol Xl Tab) 50 mg HS PO 09/28/17 21:00 10/28/17 20:59 09/28/17 20:33 50 MG Potassium Chloride (Klor-Con Tab) 40 meq TODAY@1745 ONCE PO 09/28/17 17:45 09/28/17 17:46 DC 09/28/17 17:56 40 MEQ Objective Vital Signs Date Time Temp Pulse Resp B/P (MAP) Pulse Ox O2 Delivery O2 Flow Rate FiO2 09/29/17 12:00 Room Air 09/29/17 11:50 37.1 73 19 114/72 (86) 95 Room Air 09/29/17 08:00 Room Air 09/29/17 07:37 36.7 76 18 139/73 (95) 95 Room Air 09/29/17 04:10 Room Air 09/29/17 03:31 36.5 75 17 116/69 (85) 95 Room Air 09/28/17 23:05 37.0 92 20 126/71 (89) 93 Room Air 09/28/17 23:00 Room Air 09/28/17 19:45 Room Air 09/28/17 19:22 37.4 92 20 148/76 (100) 95 Room Air 09/28/17 17:34 37.3 103 20 145/80 (101) 95 Room Air 09/28/17 17:19 37.7 97 20 146/80 (102) 94 Room Air 09/28/17 16:43 37.7 93 20 137/78 (97) 95 Room Air 09/28/17 16:32 37.8 95 20 150/71 (97) 97 Room Air 09/28/17 16:10 36.5 95 16 132/75 95 Room Air 09/28/17 16:00 94 18 139/73 96 Room Air 09/28/17 15:55 143/82 09/28/17 15:53 36.8 107 16 140/117 99 Room Air Physical Exam General Appearance: no apparent distress Eyes: PERRL, EOMI ENT: hearing grossly normal Neck: supple, no JVD Respiratory/Chest: lungs clear, normal breath sounds, no respiratory distress, no accessory muscle use Cardiovascular: regular rate, rhythm, no murmur Abdomen: normal bowel sounds, soft Extremities: normal range of motion, no pedal edema, no calf tenderness Neurologic/Psychiatric: no motor/sensory deficits, alert, normal mood/affect Laboratory Results Last 24 Hours Test 09/28/17 16:18 09/28/17 20:14 09/28/17 21:53 09/29/17 06:17 Bedside Glucose 135 mg/dl 170 mg/dl 104 mg/dl Troponin I 0.029 ng/ml Test 09/29/17 08:03 09/29/17 11:20 White Blood Count 7.52 K/uL Red Blood Count 3.64 M/uL Hemoglobin 11.0 g/dL Hematocrit 32.9 % Mean Corpuscular Volume 90.4 fL Mean Corpuscular Hemoglobin 30.2 pg Mean Corpuscular Hemoglobin Concent 33.4 g/dl Platelet Count 176 K/uL Mean Platelet Volume 11.3 fL Neutrophils (%) (Auto) 72.1 % Lymphocytes (%) (Auto) 19.0 % Monocytes (%) (Auto) 6.8 % Eosinophils (%) (Auto) 1.5 % Basophils (%) (Auto) 0.3 % Neutrophils # (Auto) 5.43 K/uL Lymphocytes # (Auto) 1.43 K/uL Monocytes # (Auto) 0.51 K/uL Eosinophils # (Auto) 0.11 K/uL Basophils # (Auto) 0.02 K/uL RDW Standard Deviation 50.0 fL RDW Coefficient of Variation 15.0 % Immature Granulocyte % (Auto) 0.3 % Immature Granulocyte # (Auto) 0.02 K/uL Sodium Level 137 mmol/L Potassium Level 3.5 mmol/L Chloride Level 110 mmol/L Carbon Dioxide Level 19 mmol/L Anion Gap 8.0 mmol/L Blood Urea Nitrogen 22 mg/dl Creatinine 0.84 mg/dl Est Creatinine Clear Calc Drug Dose 61.1 ml/min Estimated GFR () 78.2 Estimated GFR (Non- 67.5 BUN/Creatinine Ratio 26.4 Random Glucose 144 mg/dl Calcium Level 8.1 mg/dl Bedside Glucose 226 mg/dl Assessment and Plan 76 year old female with a PMH of DM, HTN and HLD is here as a direct admit from [facility] secondary to left ureteral stone and pyelonephritis. She is day 1 s/p cystoscopy, LVP and stent placement Left ureteral stone w/ associated pyelonephritis - S/p cystoscopy and stent placement - Zosyn 3.375 q6 IV- Cultures at [facility] were not run till yesterday, need confirmation prior to transition to PO. Blood cultures negative - D/C Iv fluids, Encourage PO intake - Zofran 4mg q4 prn for nausea - Appreciate Urology reccs Elevated troponin - EKG showed sinus tachycardia - trop .16 (upper end of reference range at [facility] is 0.1) - no hx of NH or angina - trend troponins q8- last troponin normal - echo * Left ventricular systolic function is normal. * Grade I diastolic dysfunction, (abnormal relaxation pattern). * Right ventricular systolic pressure is normal. - Lipids acceptable - A1C of 8.5 - Appreciate cardiology reccs- nothing immediate to pursue cardiac wheeler in the hospital. However, does have risk factors (diabetes). Would continue outpatient management/consider stress test SAVAGE on CKD Stage 4 - D/C ivf - Creatinine 0.8 DMT2 - give 40 units of lantus - hold home meds - check bsg q4 HTN - continue lisinopril and metoprolol HLD - LDL at 36. - HDL at 10 - May consider decreasing or stopping statin if outpatient stress test is normal. (increased risk of brain bleeds?) DVT prophylaxis - lovenox 30mg subq FULL CODE Resident Physician Supervision Note: I interviewed and examined the patient. Discussed with Dr. Dudley and agree with findings and plan as documented in the note. Any exceptions or clarifications are listed here: None Documented By: Rodrick Clemons feeling good overall no significant findings from cultures at [facility] yet vitals noted nad breathing unlabored no pallor or icterus sepsis from pyelo from retained stone - post cysto/stenting, on appropriate IV abx - improving, stable for transition to PO abx and home once cultures have identified bacteria/sensitivities elevated troponin - mild, likely demand ischemia from sepsis. consider stress test as outpatient under baseline conditions mostly because she does have vascular risk w DM otherwise as above, stable for med/surg
[2017-09-29] MEDS: ONDANSETRON INJ 2 MG/ML 2 ML VIAL IV PRN ×2 (16:28→21:07)
[2017-09-29 17:00] VITALS: BP 163/80; PULSE 90; TEMP 36.9; O2SAT 97
[2017-09-29] MEDS: INSULIN GLARGINE SOLOSTAR 100 UNITS/ML 3 ML PEN SC SCH (21:05)
[2017-09-29] MEDS: METOPROLOL SUCC 25MG EXT REL TAB PO SCH (21:06)
[2017-09-29] MEDS: ATORVASTATIN 10 MG TAB PO SCH (21:06)
[2017-09-29 23:37] VITALS: BP 129/59; PULSE 79; TEMP 37; O2SAT 96
[2017-09-30] MEDS: ONDANSETRON INJ 2 MG/ML 2 ML VIAL IV PRN (01:26)
[2017-09-30] MEDS: PIPERACILL/TAZOBAC IV 3.375 GM in DEXTROSE 5% 100ML IV SCH (06:17)
[2017-09-30 07:10] LABS: CALCIUM 8.1 mg/dl (8.5-10.1); CREATININE 0.63 mg/dl (0.60-1.20); POTASSIUM 3.2 mmol/L (3.5-5.1)
[2017-09-30] MEDS ORDERED: POTASSIUM CHLORIDE 20 MEQ TABCR PO STA (07:31)
[2017-09-30 07:42] VITALS: O2SAT 96
[2017-09-30 07:51] VITALS: BP 130/70; PULSE 80; TEMP 37.1; O2SAT 96
[2017-09-30] MEDS: INSULIN ASPART 100 UNITS/ML 3 ML PEN SC SCH ×2 (08:00→13:31)
[2017-09-30 08:18] LABS: BASO % 0.3 %; BASO ABS # 0.02 K/uL (0-0.2); EOS % 2.4 %; EOS ABS # 0.17 K/uL (0-0.5); HEMATOCRIT 32.8 % (37-47); HEMOGLOBIN 10.8 g/dL (12.0-16.0); IG# 0.02 K/uL (0.00-0.02); LYMPH % 23.8 %; LYMPH ABS # 1.71 K/uL (1.2-3.4); MEAN CELL VOLUME 89.9 fL (80-100); MEAN CORPUSCULAR HEMOGLOBIN 29.6 pg (25-34); MEAN CORPUSCULAR HGB CONC 32.9 g/dl (32-36); MEAN PLATELET VOLUME 11.6 fL (7.4-10.4); MONO % 10.7 %; MONO ABS # 0.77 K/uL (0.11-0.59); NEUT % 62.5 %; NEUT ABS # 4.49 K/uL (1.4-6.5); PLATELET COUNT 186 K/uL (130-400); RED CELL DISTRIBUTION WIDTH CV 14.9 % (11.5-14.5); RED CELL DISTRIBUTION WIDTH SD 49.3 fL (36.4-46.3); WHITE BLOOD COUNT 7.18 K/uL (4.8-10.8)
[2017-09-30] MEDS: LISINOPRIL 20 MG TAB PO SCH (08:18)
[2017-09-30] MEDS: ENOXAPARIN 30 MG/0.3 ML SYR SC SCH (08:18)
--- NOTE | 2017-09-30 08:19 | Clinical Documentation Query ---
Dr. [facility] : CLINICAL DOCUMENTATION QUERY Please document the POA (present on admission) status of this diagnosis as it directly impacts accurate DRG assignment. Thank you. In your clinical opinion is this patient being managed for: ( ) Sepsis due to pyelonephritis secondary to ureteral calculus, POA ( ) Sepsis due to pyelonephritis secondary to ureteral calculus, not POA ( ) Not Agree ( ) Other explanation of clinical findings (Please Explain) ( ) Unable to determine (Please Define) ( ) Need to Discuss Please clarify and document your clinical opinion in the progress notes and discharge summary. Terms such as "probable", "suspected", "likely", "questionable", "possible", or "still to be ruled out" are acceptable. IF IN AGREEMENT, YOU MUST DOCUMENT ABOVE DIAGNOSTIC STATEMENT IN DAILY PROGRESS NOTES AND DISCHARGE SUMMARY. This document is not part of the patient's record. Thank You, Dylon Randle, RN [phone]
--- NOTE | 2017-09-30 09:12 | Progress Note ---
Subjective Date of Service: Sep 30, 2017. Subjective Pt evaluation today including: conversation w/ patient, chart review, lab review Voiding: no voiding problems Pt denies pain this morning. States her "upset stomach" is improved today. She has been afebrile for >24hrs. Urine culture from left kidney preliminarily negative. Unfortunately no other cultures sent. She remains on Zosyn. Review of Systems Constitutional: No fever, No chills Respiratory: No shortness of breath Cardiac: No chest pain Abdomen: No pain, No nausea, No vomiting Female : No dysuria, No hematuria Heme: No abnormal bleeding/bruising Objective Vital Signs Date Time Temp Pulse Resp B/P (MAP) Pulse Ox O2 Delivery O2 Flow Rate FiO2 09/30/17 07:51 37.1 80 14 130/70 (90) 96 Room Air 09/30/17 07:42 96 Room Air 09/30/17 00:00 Room Air 09/29/17 23:37 37.0 79 20 129/59 (82) 96 Room Air 09/29/17 17:00 Room Air 09/29/17 17:00 36.9 90 18 163/80 (107) 97 Room Air 09/29/17 16:00 Room Air 09/29/17 15:07 36.7 58 20 155/74 (101) 90 Room Air 09/29/17 12:00 Room Air 09/29/17 11:50 37.1 73 19 114/72 (86) 95 Room Air Physical Exam General Appearance: no apparent distress Eyes: normal inspection ENT: hearing grossly normal Neck: no JVD Respiratory/Chest: no respiratory distress, no accessory muscle use Cardiovascular: no JVD Extremities: normal inspection Neurologic/Psychiatric: alert, normal mood/affect, oriented x 3 Skin: normal color Laboratory Results Last 24 Hours Test 09/29/17 11:20 09/29/17 16:18 09/29/17 20:39 09/30/17 05:50 Bedside Glucose 226 mg/dl 257 mg/dl 251 mg/dl White Blood Count 7.18 K/uL Red Blood Count 3.65 M/uL Hemoglobin 10.8 g/dL Hematocrit 32.8 % Mean Corpuscular Volume 89.9 fL Mean Corpuscular Hemoglobin 29.6 pg Mean Corpuscular Hemoglobin Concent 32.9 g/dl Platelet Count 186 K/uL Mean Platelet Volume 11.6 fL Neutrophils (%) (Auto) 62.5 % Lymphocytes (%) (Auto) 23.8 % Monocytes (%) (Auto) 10.7 % Eosinophils (%) (Auto) 2.4 % Basophils (%) (Auto) 0.3 % Neutrophils # (Auto) 4.49 K/uL Lymphocytes # (Auto) 1.71 K/uL Monocytes # (Auto) 0.77 K/uL Eosinophils # (Auto) 0.17 K/uL Basophils # (Auto) 0.02 K/uL RDW Standard Deviation 49.3 fL RDW Coefficient of Variation 14.9 % Immature Granulocyte % (Auto) 0.3 % Immature Granulocyte # (Auto) 0.02 K/uL Sodium Level 139 mmol/L Potassium Level 3.2 mmol/L Chloride Level 109 mmol/L Carbon Dioxide Level 21 mmol/L Anion Gap 9.0 mmol/L Blood Urea Nitrogen 13 mg/dl Creatinine 0.63 mg/dl Est Creatinine Clear Calc Drug Dose 81.4 ml/min Estimated GFR () 101.0 Estimated GFR (Non- 87.1 BUN/Creatinine Ratio 20.8 Random Glucose 134 mg/dl Calcium Level 8.1 mg/dl Assessment and Plan POD #2 s/p left ureteral stent placement for obstructing stone with fever. AFVSS. Unfortunately no blood or urine cultures other than culture from her left kidney obtained. Would recommend changing her to 14 days of oral abx such as Cipro prior to d/c home. The pt will need definitive stone management once her infection has been adequately treated. Will check a KUB for stone visibility. Will arrange for outpatient f/u in 1-[address] Trejo. Discharge planning: home
--- NOTE | 2017-09-30 09:31 | Family Medicine Progress Note ---
Progress Note Date of Service Sep 30, 2017. Subjective Pt evaluation today including: conversation w/ patient, physical exam, chart review, lab review, review of studies, review of inpatient medication list Pain: denies pain PO Intake: adequate Voiding: no voiding problems No acute events overnight, Patient feels better in general. She denies fever, chills, abdominal pain, n/v. Constitutional: No fever, No chills, No weakness, No fatigue Respiratory: No cough, No shortness of breath Cardiovascular: No see HPI, No problem reported Abdomen: No pain, No nausea, No vomiting, No diarrhea Skin: No rash Medications Current Inpatient Medications Medications (Trade) Dose Ordered Sig/Maciel Route Start Time Stop Time Status Last Admin Dose Admin Enoxaparin Sodium (Lovenox Inj) 30 mg Q24H SC 09/28/17 09:00 10/28/17 08:59 09/30/17 08:18 30 MG Acetaminophen (Tylenol Tab) 650 mg Q4H PRN PO 09/27/17 22:15 10/27/17 22:14 09/28/17 01:24 650 MG Al Hydrox/Mg Hydrox/Simethicone (Maalox Max Susp) 15 ml Q4H PRN PO 09/27/17 22:15 10/27/17 22:14 Magnesium Hydroxide (Milk Of Magnesia Susp) 30 ml Q12H PRN PO 09/27/17 22:15 10/27/17 22:14 Polyethylene (Miralax Powder Packet) 17 gm DAILY PRN PO 09/27/17 22:15 10/27/17 22:14 Atorvastatin Calcium (Lipitor Tab) 10 mg HS PO 09/28/17 21:00 10/28/17 20:59 09/29/17 21:06 10 MG Insulin Glargine (Lantus Solostar Pen) 40 units QPM SC 09/27/17 22:15 10/27/17 22:14 09/29/17 21:05 40 UNITS Metoprolol Succinate (Toprol Xl Tab) 50 mg HS PO 09/28/17 21:00 10/28/17 20:59 09/29/17 21:06 50 MG Lisinopril (Zestril Tab) 20 mg DAILY PO 09/28/17 09:00 10/28/17 08:59 09/30/17 08:18 20 MG Glucose (Glucose 40% Gel) 15-30 GRAMS 15 GRAMS... UD PRN PO 09/27/17 22:30 10/27/17 22:29 Glucose (Glucose Chew Tab) 4-8 Tablets 4 Tabl... UD PRN PO 09/27/17 22:30 10/27/17 22:29 Dextrose (Dextrose 50% 50ML Syringe) 25-50ML OF 50% DW IV FOR... UD PRN IV 09/27/17 22:30 10/27/17 22:29 Glucagon (Glucagon Inj) 1 mg UD PRN SQ 09/27/17 22:30 10/27/17 22:29 Ondansetron HCl (Zofran Inj) 4 mg Q4H PRN IV 09/27/17 22:30 10/27/17 22:29 09/30/17 01:26 4 MG Insulin Aspart (novoLOG ASPART) SLIDING SCALE G... ACHS SC 09/30/17 08:00 10/30/17 07:59 Ciprofloxacin (Cipro Tab) 500 mg BID PO 09/30/17 21:00 10/10/17 20:59 Objective Vital Signs Date Time Temp Pulse Resp B/P (MAP) Pulse Ox O2 Delivery O2 Flow Rate FiO2 09/30/17 07:51 37.1 80 14 130/70 (90) 96 Room Air 09/30/17 07:42 96 Room Air 09/30/17 00:00 Room Air 09/29/17 23:37 37.0 79 20 129/59 (82) 96 Room Air 09/29/17 17:00 Room Air 09/29/17 17:00 36.9 90 18 163/80 (107) 97 Room Air 09/29/17 16:00 Room Air 09/29/17 15:07 36.7 58 20 155/74 (101) 90 Room Air 09/29/17 12:00 Room Air 09/29/17 11:50 37.1 73 19 114/72 (86) 95 Room Air Laboratory Results Results Past 24 Hours Test 09/29/17 11:20 09/29/17 16:18 09/29/17 20:39 09/30/17 05:50 Range/Units Bedside Glucose 226 257 251 70-90 mg/dl White Blood Count 7.18 4.8-10.8 K/uL Red Blood Count 3.65 4.2-5.4 M/uL Hemoglobin 10.8 12.0-16.0 g/dL Hematocrit 32.8 37-47 % Mean Corpuscular Volume 89.9 80-100 fL Mean Corpuscular Hemoglobin 29.6 25-34 pg Mean Corpuscular Hemoglobin Concent 32.9 32-36 g/dl Platelet Count 186 130-400 K/uL Mean Platelet Volume 11.6 7.4-10.4 fL Neutrophils (%) (Auto) 62.5 % Lymphocytes (%) (Auto) 23.8 % Monocytes (%) (Auto) 10.7 % Eosinophils (%) (Auto) 2.4 % Basophils (%) (Auto) 0.3 % Neutrophils # (Auto) 4.49 1.4-6.5 K/uL Lymphocytes # (Auto) 1.71 1.2-3.4 K/uL Monocytes # (Auto) 0.77 0.11-0.59 K/uL Eosinophils # (Auto) 0.17 0-0.5 K/uL Basophils # (Auto) 0.02 0-0.2 K/uL RDW Standard Deviation 49.3 36.4-46.3 fL RDW Coefficient of Variation 14.9 11.5-14.5 % Immature Granulocyte % (Auto) 0.3 % Immature Granulocyte # (Auto) 0.02 0.00-0.02 K/uL Sodium Level 139 136-145 mmol/L Potassium Level 3.2 3.5-5.1 mmol/L Chloride Level 109 98-107 mmol/L Carbon Dioxide Level 21 21-32 mmol/L Anion Gap 9.0 3-11 mmol/L Blood Urea Nitrogen 13 7-18 mg/dl Creatinine 0.63 0.60-1.20 mg/dl Est Creatinine Clear Calc Drug Dose 81.4 ml/min Estimated GFR () 101.0 Estimated GFR (Non- 87.1 BUN/Creatinine Ratio 20.8 10-20 Random Glucose 134 70-99 mg/dl Calcium Level 8.1 8.5-10.1 mg/dl Microbiology Results 09/29/17 C.difficile Toxin B Gene (PCR) - Final, Complete No C. difficile toxin B gene detected Resident Tracking Resident Involvement: Resident Care Provided Care Provided: [facility]
--- NOTE | 2017-09-30 09:34 | DIAGNOSTIC IMAGING REPORT ---
KUB CLINICAL HISTORY: Ureteral stone. FINDINGS: 2 AP supine abdominal radiographs are correlated with abdominal CT dated 10/15/2013. A left ureteral stent has been placed. No calcifications are identified along the course of the stent. No calcifications project over either kidney. A calcification projecting over the right renal hilum likely resent a vascular calcification and correlated with the previous CT scan. Small phleboliths, a surgical clip, and a suture material are noted in the pelvis. No bowel obstruction is identified. The skeletal structures are osteopenic. Moderate lumbosacral spondylosis is observed. IMPRESSION: 1. A left ureteral stent has been placed. No calcifications are identified along the course of the stent. 2. No calcifications project over either kidney. Electronically signed by: Jarrett Benites M.D. 09/30/2017 9:33 AM Dictated Date/Time: 09/30/2017 9:29 AM
[2017-09-30 12:15] VITALS: Ht 162.6 cm; Wt 87.6 kg
[2017-09-30] MEDS ORDERED: FLUC200T4 PO (13:40)
[2017-09-30] MEDS ORDERED: CPR500 PO (13:40)
--- NOTE | 2017-09-30 14:05 | Discharge Instructions ---
Discharge Instructions Date of Service Sep 30, 2017. Admission Reason for Admission: Obstructing L Kidney Stone Discharge Discharge Diagnosis / Problem: Left kidney stone, pyelonephritis Discharge Goals Goal(s): Decrease discomfort, Improve function, Learn about illness, Diagnostic testing, Therapeutic intervention, Prevent Disease Progression Activity Recommendations Activity Limitations: as noted below Lifting Limitations: gradually increase as tolerated Exercise/Sports Limitations: gradually increase as tolerated May Resume Sexual Activity: when tolerated Shower/Bathe: no limitations Driving or Machine Use: resume 3 days after discharge . Instructions / Follow-Up Instructions / Follow-Up Dear Ms. Odonnell You were admitted due to an obstructing kidney stone and an infection in your kidneys/urinary tract. You underwent a procedure and had a stent placed. You will have 14 days of antibiotics. Please take as prescribed. It was also noted that you have fungus in your urine. Please take your anti-fungal as prescribed. You will have follow up scheduled in 1-[address] Trejo If you have worsening pain, fevers, chest pain, shortness of breath or other concerns, please call your PCP or go to your nearest ER. Thank you. Current Hospital Diet Patient's current hospital diet: Diabetes Type 2 Diet Discharge Diet Recommended Diet: Diabetes Type 2 Diet Procedures Procedures Performed: Cystoscopy and left retrograde pyelogram with stent placement. Pending Studies Studies pending at discharge: no Laboratory Results Hemoglobin A1c Test 09/28/17 06:50 Range/Units Estimated Average Glucose 197 mg/dl Hemoglobin A1c 8.5 H 4.5-5.6 % Lipid Panel Test 09/28/17 06:50 Range/Units Triglycerides Level 225 H 0-150 mg/dl Cholesterol Level 91 0-200 mg/dl HDL Cholesterol 10 mg/dl Cholesterol/HDL Ratio 9.1 LDL Cholesterol, Calculated 36 mg/dl Medical Emergencies . Who to Call and When: Medical Emergencies: If at any time you feel your situation is an emergency, please call 911 immediately. . Non-Emergent Contact Non-Emergency issues call your: Primary Care Provider, Urologist Call Non-Emergent contact if: you have a fever, your pain is worsening . . "Provider Documentation" section prepared by Teresa Vega. .
[2017-09-30 14:14] VITALS: BP 130/70; PULSE 80; TEMP 37.1; O2SAT 96
--- NOTE | 2017-09-30 16:38 | Discharge Summary ---
Discharge Summary Date of Service Sep 30, 2017. Discharge Summary Admission Date: Sep 27, 2017 at 20:34 Discharge Date: Sep 30, 2017 Discharge Disposition: Home Principal Diagnosis: Left ureteral stone s/p ureteral stent placement, pyelonephritis Problems/Secondary Diagnoses: Elevated troponin SAVAGE on CKD Stage 4 DMT2 HTN HLD Immunizations: Have You Had Influenza Vaccine: Unknown History of Tetanus Vaccine?: Unknown History of Pneumococcal: Unknown History of Hepatitis B Vaccine: Unknown Procedures: RETROGRADE INCLUDES KUB CLINICAL HISTORY: STENT PLACEMENT TECHNIQUE: Image intensifier COMPARISON STUDY: None FINDINGS: Retrograde opacification of the left upper urinary tract followed by successful stent placement IMPRESSION: Left ureteral stent placement KUB CLINICAL HISTORY: Ureteral stone. FINDINGS: 2 AP supine abdominal radiographs are correlated with abdominal CT dated 10/15/2013. A left ureteral stent has been placed. No calcifications are identified along the course of the stent. No calcifications project over either kidney. A calcification projecting over the right renal hilum likely resent a vascular calcification and correlated with the previous CT scan. Small phleboliths, a surgical clip, and a suture material are noted in the pelvis. No bowel obstruction is identified. The skeletal structures are osteopenic. Moderate lumbosacral spondylosis is observed. IMPRESSION: 1. A left ureteral stent has been placed. No calcifications are identified along the course of the stent. 2. No calcifications project over either kidney. Consultations: Urology Medication Reconciliation New Medications: Fluconazole (Diflucan) 200 Mg Tab 200 MG PO DAILY for 5 Days, #5 TAB Ciprofloxacin (Ciprofloxacin HCl) 500 Mg Tab 500 MG PO BID for 14 Days, #28 TAB Continued Medications: Atorvastatin (Lipitor) 10 Mg Tab 10 MG PO HS, TAB Empagliflozin (Jardiance) 25 Mg Tab 25 MG PO DAILY Insulin Glargine (Lantus) 100 Unit/Ml Inj 45 SC QPM, VIAL Lisinopril (Bulk) (Lisinopril) 1 Pow Pow 20 MG PO DAILY Metoprolol Succinate (Toprol Xl) 25 Mg Tab 50 MG PO HS, #30 TAB Discontinued Medications: Ciprofloxacin Tab (Cipro) 250 Mg Tab 500 MG PO BID for 10 Days, TAB Discharge Exam This is a 76 y/o F who presented as a direct transfer from [facility] for left obstructive renal calculi and pyelonephritis. The patient was initially seen at her PCP's office and started on Cipro, however, her symptoms progressed and she was having nausea, abdominal pain, back pain. After transfer to [facility], Urology was consulted. She was taken to the OR the following afternoon and a stent was placed. A large amount of purulence was drained during the procedure. She was placed on Zosyn. Her symptoms improved. Initial cultures from PCP's office grew pansensitive Proteus. Her Abx was transitioned to PO Cipro. Her Urine also grew yeast and she was placed on a 5 day course of Diflucan. Initial troponin done at [facility] was slightly elevated. This was trended and normal. Cardiology was consulted and did not recommend any immediate testing/ intervention. She does have risk factors for ACS/CAD given her not well controlled diabetes. She was advised to follow up with her PCP and discuss need for a stress test. Any new symptoms must be evaluated. Her LDL (36) and HDL (10 ) was considerably low. Risks vs benefits may be addressed by PCP, and if stress test is normal, may be taken off statins. She will follow up with urology in the office in 1-2 weeks. All other acute and chronic conditions were managed as appropriate. Review of Systems: Constitutional: No fever, No chills Eyes: No worsening of vision ENT: No hearing loss Respiratory: No cough, No sputum, No wheezing, No shortness of breath, No dyspnea on exertion, No dyspnea at rest Cardiovascular: No chest pain Abdomen: No pain, No nausea, No vomiting Musculoskeletal: No joint pain, No muscle pain, No calf pain Genitourinary - Female: No dysuria, No urinary frequency, No urinary urgency Physical Exam: General Appearance: no apparent distress Eyes: PERRL, EOMI ENT: hearing grossly normal Respiratory/Chest: lungs clear, normal breath sounds, no respiratory distress, no accessory muscle use Cardiovascular: regular rate, rhythm, normal peripheral pulses Abdomen / GI: normal bowel sounds, non tender, soft Extremities: no calf tenderness Neurologic/Psychiatric: no motor/sensory deficits, alert, normal mood/affect Hospital Course Total Time Spent: Greater than 30 minutes This includes examination of the patient, discharge planning, medication reconciliation, and communication with other providers. Discharge Instructions Please refer to the electronic Patient Visit Report (Discharge Instructions) for additional information. Assessment/Plan Resident Physician Supervision Note: I was present with Dr. Stark during the history and exam. I discussed the case with the resident and agree with the findings and plan as documented in the note. Any exceptions or clarifications are listed here. Pt reports resolution of urinary symptoms following cystoscopy and stents with tolerance of abx regimen. Per urology recommendations and cultures, would narrow to PO abx w/ diflucan for close follow up with PCP/urology. Regarding elevated troponin, would evaluate for outpatient stress test on follow up. Else as noted.
[2017-09-30] MEDS ORDERED: CIPROFLOXACIN 500 MG TAB PO SCH (21:00)
== END 2017-09-30 14:34 | disposition home or self-care (01) | DRG 694 ==
LOC: C.2T 20:34 → EDBEDREQSVC 09-29 15:18 → ENRESERV 09-29 15:50 → C.MSW 09-29 16:58
PROVIDERS: ADMIT Internal Medicine; ATTEND Family Medicine
PROC: 0T778DZ Dilation of Left Ureter with Intraluminal Device, Via Natural or Artificial Opening Endoscopic (ICD-10-PCS; principal; 2017-09-28 09:23)
DX: N13.2 Hydronephrosis with renal and ureteral calculous obstruction (principal); Z82.49 Family history of ischemic heart disease and other diseases of the circulatory system; Z87.891 Personal history of nicotine dependence; Z88.2 Allergy status to sulfonamides; N18.4 Chronic kidney disease, stage 4 (severe); E11.9 Type 2 diabetes mellitus without complications; I10 Essential (primary) hypertension; E78.5 Hyperlipidemia, unspecified; N28.9 Disorder of kidney and ureter, unspecified; N17.9 Acute kidney failure, unspecified

== ENCOUNTER → 2017-10-07 | Outpatient (CLI) | payer BC ==
[~2017-10-07] MED LIST changes: +ASCA500 PO; +CALC500C70 PO; -CALC600T9 PO; -CANA1TAB PO; +CIPR1TAB11 PO; +CPR500 PO; +EMPA1TAB3 PO; +INSDGI SC; -INSDGI SQ; -LISI-787 PO; +LISIPOW PO; -OMEG-112 PO; +VTME100 PO
--- NOTE | 2017-10-07 13:54 | DIAGNOSTIC IMAGING REPORT ---
TWO VIEW CHEST CLINICAL HISTORY: Preoperative examination. Ureteral stone. FINDINGS: PA and lateral chest radiographs are compared to study dated 10/14/2013. The heart is enlarged and there is atherosclerotic calcification of the thoracic aorta. The pulmonary vasculature is noncongested. Chronic interstitial thickening similar to previous. Trace pleural effusions are identified with bibasilar atelectasis. No airspace consolidation is seen typical for pneumonia. Apical scarring is noted. There is no pneumothorax. The skeletal structures are osteopenic. The bony thorax appears intact. A left ureteral stent is partially visualized in the upper abdomen. IMPRESSION: 1. Cardiomegaly without radiographic evidence of congestive failure. 2. Trace pleural effusions. Electronically signed by: Jarrett Benites M.D. 10/07/2017 1:52 PM Dictated Date/Time: 10/07/2017 1:51 PM
[2017-10-07 15:54] LABS: BLOOD UREA NITROGEN 7 mg/dl (7-18); CALCIUM 9.1 mg/dl (8.5-10.1); CARBON DIOXIDE 27 mmol/L (21-32); CREATININE 0.76 mg/dl (0.60-1.20); GLUCOSE 144 mg/dl (70-99); POTASSIUM 3.4 mmol/L (3.5-5.1); SODIUM 139 mmol/L (136-145)
== END | disposition home or self-care (01) ==
LOC: C.LAB 13:03
PROVIDERS: ATTEND Urology
DX: N20.1 Calculus of ureter (principal); I51.7 Cardiomegaly

== ENCOUNTER → 2017-10-24 | Day surgery (SDC) | payer BC ==
[2017-10-10 08:43] VITALS: BMI 29.0
[~2017-10-24] VITALS: Ht 163.8 cm; Wt 80.0 kg
[~2017-10-24] MED LIST changes: +ATROPINE SULFATE 0.1 MG/ML 5ML SYR IV PRN; +BELLADONNA/OPIUM SUPP 60 MG SUPP PR ONE; +CEPH-571 PO; +CIPROFLOXACIN / D5W 400 MG IV SCH; -CPR500 PO; +Cysto-Conray II 17.2% 250ML BOTTLE ONE; +DEXAMETHASONE SOD INJ 4 MG/ML VIAL ONE; +EpHEDrine SULFATE INJ 50 MG/ML AMP IV PRN; +FENTANYL CITRATE INJ 50 MCG/1 ML 2 ML VIAL IV PRN; +FENTANYL CITRATE INJ 50 MCG/1 ML 2 ML VIAL ONE; +FLUC100T4 PO; +LACTATED RINGER'S 1000ML 1,000 ML IV SCH; +MIDAZOLAM HCL 1 MG/ML 2ML VIAL ONE; +NYST80OI TOP; +ONDANSETRON INJ 2 MG/ML 2 ML VIAL IV PRN; +ONDANSETRON INJ 2 MG/ML 2 ML VIAL ONE; +OXYC7.5T65 PO; +OXYCODONE/ACETAMINOPHEN 7.5-325 TAB PO PRN; +PHEN-775 PO; +PHEN-876 PO; +PROPOFOL IV EMULSION 10 MG/ML 20 ML VIAL IV ONE; +TAMS0.4C38 PO
[2017-10-24 06:38] VITALS: BP 151/88; PULSE 83; TEMP 36.8; O2SAT 96; Ht 163.8 cm; Wt 80.0 kg
--- NOTE | 2017-10-24 08:06 | History & Physical Bridge Note ---
H&P Re-Evaluation Bridge Note: I have examined the patient, reviewed the History & Physical and in the interval since the performance of the History & Physical I have noted the following changes of clinical significance: No changes noted
--- NOTE | 2017-10-24 08:17 | Discharge Instructions ---
Discharge Instructions Date of Service Oct 24, 2017. Admission Reason for Admission: Nephrolithiasis Discharge Discharge Diagnosis / Problem: Stone Discharge Goals Goal(s): Decrease discomfort, Improve function Activity Recommendations Activity Limitations: resume your previous activity Lifting Limitations: gradually increase as tolerated Exercise/Sports Limitations: gradually increase as tolerated Shower/Bathe: no limitations . Instructions / Follow-Up Instructions / Follow-Up May have blood in urine. May have pelvic discomfort. Call if any fevers or chills. Current Hospital Diet Patient's current hospital diet: Discharge Diet Recommended Diet: Regular Diet Procedures Procedures Performed: Cystoscopy, Left URS, laser lithotripsy. Pending Studies Studies pending at discharge: no Laboratory Results Hemoglobin A1c Test 09/28/17 06:50 Range/Units Estimated Average Glucose 197 mg/dl Hemoglobin A1c 8.5 H 4.5-5.6 % Lipid Panel Test 09/28/17 06:50 Range/Units Triglycerides Level 225 H 0-150 mg/dl Cholesterol Level 91 0-200 mg/dl HDL Cholesterol 10 mg/dl Cholesterol/HDL Ratio 9.1 LDL Cholesterol, Calculated 36 mg/dl Medical Emergencies . Who to Call and When: Medical Emergencies: If at any time you feel your situation is an emergency, please call 911 immediately. . Non-Emergent Contact Non-Emergency issues call your: Primary Care Provider, Urologist Call Non-Emergent contact if: you have a fever, temperature is above 101, temperature is above 101.5, your pain is not controlled, your pain is worsening . . "Provider Documentation" section prepared by Jozef Trejo. .
--- NOTE | 2017-10-24 09:16 | [facility] Operative Report ---
Operative Report Operative Date Oct 24, 2017. Pre-Operative Diagnosis Obst Left Stone Post-Operative Diagnosis Same Procedure(s) Performed Cystoscopy, Left Ureteroscopy, Laser Lithotripsy, Stone extraction, Stent exchange and retrograde. Surgeon Neil Estimated Blood Loss Minimal Findings Stone in left ureter. Drains 6 Fr Multilength Anesthesia Type General Complication(s) none Disposition Recovery Room / PACU Indications Obstructing stone with sepsis. Had stent. Here for treatment. Description of Procedure Patient was consented and brought back to the operating room. Patient was placed under anesthesia in the supine position and moved to the dorsal lithotomy position. Patient was prepped and draped in the regular sterile fashion. A time out was completed. A 30degree Cystoscope was placed into the bladder and the entire bladder was examined. The UO's were identified. The left stent was grasped and partially removed. A wire was placed. A short rigid ureteroscope was placed and taken into the left Ureter. It was advanced to the stone and a laser was selected. The stone was pulverized to dust and small fragments. A larger fragment was grasped and sent for analysis. The Stone was adequately treated. At this point , a retrograde pyelogram was completed through the scope. No areas of concern were noted. The scope was removed. With the wire in place, a 6 Fr Double J stent was placed. It was confirmed with fluoroscopy. With the stent in place, the bladder was emptied. The scope was removed. The patient was cleaned, aroused from anesthesia, and transferred to the pacu in stable condition having tolerated the procedure well with no complications. I was present and participated in all aspects of the procedure. The patient will be monitored in the PACU until transferred. I attest to the content of the Intraoperative Record and any orders documented therein. Any exceptions are noted below.
--- NOTE | 2017-10-24 10:02 | Anesthesiology Progress Note ---
Anesthesia Post Op Note Date & Time Oct 24, 2017 at 09:58 Vital Signs Pain Intensity: 0 Vital Signs Past 12 Hours Date Time Temp Pulse Resp B/P (MAP) Pulse Ox O2 Delivery O2 Flow Rate FiO2 10/24/17 09:45 78 14 123/71 99 Oxymask 10 10/24/17 09:35 84 20 127/71 99 Oxymask 10 10/24/17 09:25 36.4 90 23 139/68 100 Oxymask 10 10/24/17 06:38 36.8 83 18 151/88 (109) 96 Room Air Notes Mental Status: alert / awake / arousable, participated in evaluation Pt Amnestic to Procedure: Yes Nausea / Vomiting: adequately controlled Pain: adequately controlled Airway Patency, RR, SpO2: stable & adequate BP & HR: stable & adequate Hydration State: stable & adequate Anesthetic Complications: no major complications apparent Anesthetic Complications: Pts IV infiltrated towards the end of the case. IV was removed in the PACU. Left arm warm and swollen. Tissue in arm remains soft with perfusion in all fingers. Patient denies pain in that arm. Decision made to not place a new IV in PACU since patient was comfortable, awake and denying N/V. Left arm elevated and wrapped in warm blankets. 20 minutes later, the exam of the arm remained unchanged (still soft with normal perfusion). Ok to send patient to stage 2 recovery. Infiltration should resolve slowly overtime. Patient instructed to keep elevated and to watch for changes in perfusion, fever or new onset pain.
[2017-10-24 10:18] VITALS: BP 115/70; PULSE 74; TEMP 36.4; O2SAT 92
--- NOTE | 2017-10-24 10:30 | DIAGNOSTIC IMAGING REPORT ---
RETROGRADE INCLUDES KUB CLINICAL HISTORY: LEFT LASER,LITHO AND STENT EXCHANGE stent exchange TECHNIQUE: Image intensifier COMPARISON STUDY: None FINDINGS: Image intensifier was used for laser lithotripsy and left stent exchange. IMPRESSION: Image intensifier utilized for left ureteral stent placement The above report was generated using voice recognition software. It may contain grammatical, syntax or spelling errors. Electronically signed by: Juan Olsen M.D. 10/24/2017 10:29 AM Dictated Date/Time: 10/24/2017 10:28 AM
[2017-10-24 10:48] VITALS: BP 139/69; PULSE 81; TEMP 36.4; O2SAT 95
== END | disposition home or self-care (01) ==
LOC: C.ACU 06:06
PROVIDERS: ATTEND Urology
DX: N20.1 Calculus of ureter (principal); I10 Essential (primary) hypertension; E11.9 Type 2 diabetes mellitus without complications; E78.00 Pure hypercholesterolemia, unspecified; Z87.891 Personal history of nicotine dependence; Z88.2 Allergy status to sulfonamides; Z79.4 Long term (current) use of insulin; Z82.49 Family history of ischemic heart disease and other diseases of the circulatory system

== ENCOUNTER 2017-10-25 14:59 | Inpatient (IN) | payer OTHER, BC ==
[~2017-10-25] VITALS: Ht 162.6 cm; Wt 80.0 kg
[~2017-10-25 14:59] MED LIST changes: -ATROPINE SULFATE 0.1 MG/ML 5ML SYR IV PRN; -BELLADONNA/OPIUM SUPP 60 MG SUPP PR ONE; -CIPR1TAB11 PO; -CIPROFLOXACIN / D5W 400 MG IV SCH; -Cysto-Conray II 17.2% 250ML BOTTLE ONE; -DEXAMETHASONE SOD INJ 4 MG/ML VIAL ONE; -EpHEDrine SULFATE INJ 50 MG/ML AMP IV PRN; -FENTANYL CITRATE INJ 50 MCG/1 ML 2 ML VIAL IV PRN; -FENTANYL CITRATE INJ 50 MCG/1 ML 2 ML VIAL ONE; -LACTATED RINGER'S 1000ML 1,000 ML IV SCH; -MIDAZOLAM HCL 1 MG/ML 2ML VIAL ONE; -ONDANSETRON INJ 2 MG/ML 2 ML VIAL IV PRN; -ONDANSETRON INJ 2 MG/ML 2 ML VIAL ONE; -OXYCODONE/ACETAMINOPHEN 7.5-325 TAB PO PRN; -PHEN-876 PO; -PROPOFOL IV EMULSION 10 MG/ML 20 ML VIAL IV ONE
[2017-10-25] MEDS ORDERED: ACETAMINOPHEN 500 MG TAB PO ONE (15:22)
[2017-10-25] MEDS ORDERED: SODIUM CHLORIDE 0.9% 1000ML 1,000 ML IV STA ×2 (16:13→18:09)
--- NOTE | 2017-10-25 16:22 | EMERGENCY ROOM VISIT NOTE ---
History Report prepared by Leif: Marbella Urias Under the Supervision of: Dr. Emeka Phoenix M.D. First contact with patient: 16:04 Chief Complaint: WEAKNESS Stated Complaint: WEAKNESS AFTER SURGERY YESTERDAY Nursing Triage Summary: Patient to Ed via triage with family, states "had lithotripsy and stent placement yesterday for a kidney stone, woke up this morning feeling so weak. I was like this before when I had a kidney infection after a stone" History of Present Illness The patient is a 76 year old female who presents to the Emergency Room with complaints of weakness beginning last night. She notes that she had " lithotripsy and a stent with a string placement yesterday" for a kidney stone and started feeling weakness last night. She describes feeling "achy" and notes she has a fever and nausea. She is accompanied by her daughter who notes that the patient's right eye is also red which is new. She denies having congestion, tooth pain or a cough. The patient states she feels like she did when she "had a kidney infection after a stone." Source of History: patient, family (daughter) Onset: last night Position: other (global) Quality: other ("achy") Associated Symptoms: + fevers, + nausea, No cough Note: Negative congestion or tooth pain. Review of Systems See HPI for pertinent positives and negatives. A total of ten systems were reviewed and were otherwise negative. Past Medical & Surgical Medical Problems: (1) Complicated urinary tract infection (2) Kidney stone Surgical Problems: (1) History of abdominal surgery Family History FH: cancer Heart disease High blood pressure Social History Smoking Status: Former Smoker Drug Use: none Marital Status: Housing Status: lives with family Occupation Status: retired Current/Historical Medications Scheduled Ascorbic Acid (Vitamin C), 1 TAB PO QAM Atorvastatin (Lipitor), 10 MG PO HS Calcium/Vitamin D (Os-Stiven 500 Plus D), 1 TAB PO DAILY Cephalexin (Keflex), 500 MG PO Q6H Empagliflozin (Jardiance), 25 MG PO DAILY Fluconazole (Diflucan), 100 MG PO DAILY Insulin Glargine (Lantus), 45 SC QPM Lisinopril (Bulk) (Lisinopril), 20 MG PO DAILY Metoprolol Succinate (Toprol Xl), 50 MG PO HS Nystatin (Topical) (Nystatin), 1 APPLN TOP TID Phenazopyridine HCl (Pyridium), 200 MG PO TID Tamsulosin Hcl (Flomax), 0.4 MG PO DAILY Tocopheryl Acet,Dl-Alpha (Vitamin E), 1 CAP PO QAM Scheduled PRN Oxycodone/Acetaminophen 7.5MG/325MG (Percocet 7.5MG/325MG), 1 TAB PO Q8 PRN for Pain Allergies Coded Allergies: Sulfa Antibiotics (Verified Allergy, Unknown, NAUSEA, 10/25/17) Physical Exam Vital Signs Date Time Temp Pulse Resp B/P (MAP) Pulse Ox O2 Delivery O2 Flow Rate FiO2 10/25/17 19:03 78 18 97/51 93 Room Air 10/25/17 17:06 36.7 87 18 104/87 93 Room Air 10/25/17 15:21 39.1 94 20 104/63 93 Room Air Physical Exam GENERAL: Awake, alert, fatigued-appearing, in no distress HENT: Normocephalic, atraumatic. Oropharynx unremarkable. EYES: Normal conjunctiva. Sclera non-icteric. NECK: Supple. No nuchal rigidity. FROM. No JVD. RESPIRATORY: Clear to auscultation. CARDIAC: Regular rate, normal rhythm. Extremities warm and well perfused. Pulses equal. ABDOMEN: Soft, non-distended. No tenderness to palpation. No rebound or guarding. No masses. : String coming from her urethra. RECTAL: Deferred. MUSCULOSKELETAL: Chest examination reveals no tenderness. The back is symmetrical on inspection without obvious abnormality. There is no CVA tenderness to palpation. No joint edema. LOWER EXTREMITIES: Calves are equal size bilaterally and non-tender. No edema. No discoloration. NEURO: Normal sensorium. No sensory or motor deficits noted. SKIN: No rash or jaundice noted. Medical Decision & Procedures ER Provider Diagnostic Interpretation: Radiology results as stated below per my review and radiologist interpretation: CHEST ONE VIEW PORTABLE HISTORY: 76 years-old Female fever acute fever COMPARISON: Chest radiograph October 07, 2017, CT 10/15/2013. TECHNIQUE: Portable AP view of the chest FINDINGS: Cardiac silhouette is again enlarged. Atherosclerosis of the aorta. No pneumothorax. Biapical pleural-parenchymal scarring redemonstrated. Subsegmental bibasilar opacities redemonstrated suggesting atelectasis. No overt pulmonary edema or large pleural effusion. Bones of the chest appear grossly intact. Degenerative changes of the shoulders and spine. IMPRESSION: 1. Cardiomegaly without acute process. 2. Bibasilar opacities favor atelectasis. The above report was generated using voice recognition software. It may contain grammatical, syntax or spelling errors. Electronically signed by: Johnson Gamble M.D. 10/25/2017 4:38 PM KUB HISTORY: Acute fever with recent lithotripsy fevers recent lithotripsy ureteral stent placement, r/o migratio COMPARISON: KUB 09/30/2017, CT 10/15/2013 FINDINGS: The bowel gas pattern is non-obstructive. There is no organomegaly. Left-sided ureteral stent in stable positioning. No definite calculi seen along the course of the ureters or within the expected locations of the kidneys. Vascular calcifications are seen within the pelvis and upper abdomen. Surgical clip and surgical suture material is noted within the central pelvis. No pneumoperitoneum or pneumatosis. No fracture. Multilevel degenerative changes about the spine with osteoarthritis about the pelvis and hips. Mild levoscoliosis of the thoracolumbar junction. IMPRESSION: Left ureteral stent in place without nephrolithiasis or ureteral calculi identified. Electronically signed by: Johnson Gamble M.D. 10/25/2017 4:40 PM (RENAL)RETROPERITON COMP HISTORY: Pain fevers recent lithotripsy ureteral stent placement. COMPARISON: None. FINDINGS: Right kidney: Maximum dimension 10.9 cm. Slight fullness renal pelvis. Moderate cortical thinning and scarring Left kidney: Slight fullness renal collecting system. No evidence for angel hydronephrosis. Mild cortical scarring and thinning. Left ureteral stent in good position. Bladder: No bladder wall thickening. The bilateral ureteral jets were identified. IMPRESSION: 1. Slight fullness left renal collecting system. 2. Left ureteral stent in good position. 3. No evidence for angel hydronephrosis. The above report was generated using voice recognition software. It may contain grammatical, syntax or spelling errors. Electronically signed by: Juan Olsen M.D. 10/25/2017 5:36 PM ABD/PELVIS IV CONTRAST ONLY CT DOSE: 601.84 mGy.cm HISTORY: Pain. Infection. UTI s/p lithotripsy/stent. TECHNIQUE: Multiaxial CT images of the abdomen and pelvis were performed following the use of intravenous contrast. A dose lowering technique was utilized adhering to the principles of ALARA. COMPARISON STUDY: 10/15/2013 FINDINGS: Lung bases are clear. Liver spleen and pancreas enhance uniformly. Considerable calcification of the upper abdominal and splenic vasculature. Minimal pre-existing nodularity left adrenal. Right kidney shows cortical scarring and cortical thinning. Is no evidence for hydronephrosis. There is a left ureteral stent in good position. There is a slight increase in left perinephric fat stranding with subtle thickening of the cortex of left kidney with a subtle decrease in enhancement characteristics. A low-grade pyelonephritis is not excluded. Left ureteral stent again is in good position. The bladder is midline with no contained calcifications. There are several uterine myometrial calcifications. Postoperative changes to the bowel are noted. Bowel pattern is considered nonobstructive. There is no free fluid within the pelvic cul-de-sac. IMPRESSION: 1. Findings suggesting a potential low-grade left renal pyelonephritis. 2. No evidence for hydronephrosis. 3. Left ureteral stent in good position. 4. No evidence for abscess or collection. 5. Incidental findings as discussed above which are considered chronic. Laboratory Results 10/25/17 14:45 Red Blood Count 4.55, Mean Corpuscular Volume 88.6, Mean Corpuscular Hemoglobin 29.2, Mean Corpuscular Hemoglobin Concent 33.0, Mean Platelet Volume 11.9, Neutrophils (%) (Auto) 75.1, Lymphocytes (%) (Auto) 17.3, Monocytes (%) (Auto) 6.9, Eosinophils (%) (Auto) 0.0, Basophils (%) (Auto) 0.2, Neutrophils # (Auto) 6.19, Lymphocytes # (Auto) 1.43, Monocytes # (Auto) 0.57, Eosinophils # (Auto) 0.00, Basophils # (Auto) 0.02 10/25/17 14:45 10/25/17 18:01 Test 10/25/17 14:45 10/25/17 16:05 10/25/17 16:58 10/25/17 18:01 White Blood Count 8.25 K/uL (4.8-10.8) Red Blood Count 4.55 M/uL (4.2-5.4) Hemoglobin 13.3 g/dL (12.0-16.0) Hematocrit 40.3 % (37-47) Mean Corpuscular Volume 88.6 fL (80-100) Mean Corpuscular Hemoglobin 29.2 pg (25-34) Mean Corpuscular Hemoglobin Concent 33.0 g/dl (32-36) Platelet Count 133 K/uL (130-400) Mean Platelet Volume 11.9 fL (7.4-10.4) Neutrophils (%) (Auto) 75.1 % Lymphocytes (%) (Auto) 17.3 % Monocytes (%) (Auto) 6.9 % Eosinophils (%) (Auto) 0.0 % Basophils (%) (Auto) 0.2 % Neutrophils # (Auto) 6.19 K/uL (1.4-6.5) Lymphocytes # (Auto) 1.43 K/uL (1.2-3.4) Monocytes # (Auto) 0.57 K/uL (0.11-0.59) Eosinophils # (Auto) 0.00 K/uL (0-0.5) Basophils # (Auto) 0.02 K/uL (0-0.2) RDW Standard Deviation 47.5 fL (36.4-46.3) RDW Coefficient of Variation 14.7 % (11.5-14.5) Immature Granulocyte % (Auto) 0.5 % Immature Granulocyte # (Auto) 0.04 K/uL (0.00-0.02) Anion Gap 10.0 mmol/L (3-11) Est Creatinine Clear Calc Drug Dose 60.5 ml/min Estimated GFR () 81.8 Estimated GFR (Non- 70.5 BUN/Creatinine Ratio 20.4 (10-20) Calcium Level 9.0 mg/dl (8.5-10.1) Total Bilirubin 1.0 mg/dl (0.2-1) Alanine Aminotransferase (ALT/SGPT) 23 U/L (12-78) Alkaline Phosphatase 145 U/L (45-117) Troponin I < 0.015 ng/ml (0-0.045) Pro-B-Type Natriuretic Peptide 1105 pg/ml (0-1800) Total Protein 7.7 gm/dl (6.4-8.2) Albumin 3.3 gm/dl (3.4-5.0) Globulin 4.4 gm/dl (2.5-4.0) Albumin/Globulin Ratio 0.7 (0.9-2) Bedside Lactic Acid Venous 1.21 mmol/L (0.90-1.70) Influenza Type A (RT-PCR) Neg for Influ A (NEG) Influenza Type B (RT-PCR) Neg for Influ B (NEG) Magnesium Level 1.6 mg/dl (1.8-2.4) Aspartate Amino Transf (AST/SGOT) 17 U/L (15-37) Thyroid Stimulating Hormone (TSH) 0.138 uIu/ml (0.300-4.500) Test 10/25/17 18:07 Urine Color ORANGE Urine Appearance CLOUDY (CLEAR) Urine pH 5.0 (4.5-7.5) Urine Specific [place] 1.032 (1.000-1.030) Urine Protein 1+ (NEG) Urine Glucose (UA) 3+ (NEG) Urine Ketones NEG (NEG) Urine Occult Blood 3+ (NEG) Urine Nitrite POS (NEG) Urine Bilirubin NEG (NEG) Urine Urobilinogen NEG (NEG) Urine Leukocyte Esterase MODERATE (NEG) Urine WBC (Auto) >30 /hpf (0-5) Urine RBC (Auto) 10-30 /hpf (0-4) Urine Hyaline Casts (Auto) 1-5 /lpf (0-5) Urine Epithelial Cells (Auto) 20-30 /lpf (0-5) Urine Bacteria (Auto) NEG (NEG) Urine Yeast (Auto) PRESENT (NONE PRSENT) Laboratory results reviewed by me Medications Administered Medications (Trade) Dose Ordered Sig/Maciel Route Start Time Stop Time Status Last Admin Dose Admin Acetaminophen (Tylenol Tab) 1,000 mg STK-MED ONCE PO 10/25/17 15:22 10/25/17 15:23 DC 10/25/17 15:26 1,000 MG Sodium Chloride 1,000 ml @ 999 mls/hr Q1H1M STAT IV 10/25/17 16:13 10/25/17 17:13 DC 10/25/17 16:13 999 MLS/HR Sodium Chloride 1,000 ml @ 999 mls/hr Q1H1M STAT IV 10/25/17 18:09 10/25/17 19:09 DC 10/25/17 18:25 999 MLS/HR Ciprofloxacin/ Dextrose (Cipro / D5W) 400 mg NOW STAT IV 10/25/17 18:48 10/25/17 18:53 DC 10/25/17 19:02 400 MG Piperacillin Sod/ Tazobactam Sod (Zosyn Iv) 4.5 gm NOW STAT IV 10/25/17 20:21 10/25/17 20:23 DC 10/25/17 21:03 4.5 GM ED Course 160: The patient was evaluated in room A11. A complete history and physical exam was performed. 2024: I discussed the patient with Ana Lilia Torres - He will evaluate the patient for further treatment. Medical Decision I reviewed the patient's past medical history, medications, and the nursing notes as described above. Differential diagnosis: Etiologies such as viral syndrome, otitis, pharyngitis, pneumonia, influenza, meningitis, urinary tract infection, sepsis, bacteremia, as well as others were entertained. The patient is a 76 y/o woman with a pmhx of recent infected obstructing renal stone s/p stent in September presents to the emergency department with fevers, chills, fatigue since having lithotripsy and stent replacement yesterday per HPI. On arrival the patient is fatigued but in NAD, febrile to 39.1 with HR 90s and otherwise VSS. WBC and lactate wnl. Good stent placement on imaging. UA positive for infection. CT demonstrates evidence of pyelonephritis. Case d/w Dr. Gentile, urology on-call, and we agree admission is reasonable. Initially given cipro, however, given findings of pyelonephritis in setting of indwelling stent will broaden coverage with Zosyn until cultures results. Case d/w Ana Lilia Harrell, who will evaluate the patient for further management. Medication Reconcilliation Current Medication List: was personally reviewed by me Blood Pressure Screening Patient's blood pressure: Normal blood pressure Blood pressure disposition: Did not require urgent referral Consults Time Called: 2019 Consulting Physician: Ana Lilia Torres Returned Call: 2024 I discussed the patient with Ana Lilia Torres - He will evaluate the patient for further treatment. Impression Primary Impression: Pyelonephritis Scribe Attestation The scribe's documentation has been prepared under my direction and personally reviewed by me in its entirety. I confirm that the note above accurately reflects all work, treatment, procedures, and medical decision making performed by me. Departure Information Dispostion Being Evaluated By Hospitalist (Dr. Olivas, [facility] Hospitalist ) Referrals Melissa Santos M.D. (PCP) Patient Instructions My [facility]
[2017-10-25 16:33] LABS: BASO % 0.2 %; BASO ABS # 0.02 K/uL (0-0.2); HEMATOCRIT 40.3 % (37-47); HEMOGLOBIN 13.3 g/dL (12.0-16.0); IG# 0.04 K/uL (0.00-0.02); LYMPH % 17.3 %; LYMPH ABS # 1.43 K/uL (1.2-3.4); MEAN CELL VOLUME 88.6 fL (80-100); MEAN CORPUSCULAR HEMOGLOBIN 29.2 pg (25-34); MEAN PLATELET VOLUME 11.9 fL (7.4-10.4); MONO % 6.9 %; MONO ABS # 0.57 K/uL (0.11-0.59); NEUT % 75.1 %; NEUT ABS # 6.19 K/uL (1.4-6.5); PLATELET COUNT 133 K/uL (130-400); RED CELL DISTRIBUTION WIDTH CV 14.7 % (11.5-14.5); RED CELL DISTRIBUTION WIDTH SD 47.5 fL (36.4-46.3); WHITE BLOOD COUNT 8.25 K/uL (4.8-10.8)
--- NOTE | 2017-10-25 16:40 | DIAGNOSTIC IMAGING REPORT ---
CHEST ONE VIEW PORTABLE HISTORY: 76 years-old Female fever acute fever COMPARISON: Chest radiograph October 07, 2017, CT 10/15/2013. TECHNIQUE: Portable AP view of the chest FINDINGS: Cardiac silhouette is again enlarged. Atherosclerosis of the aorta. No pneumothorax. Biapical pleural-parenchymal scarring redemonstrated. Subsegmental bibasilar opacities redemonstrated suggesting atelectasis. No overt pulmonary edema or large pleural effusion. Bones of the chest appear grossly intact. Degenerative changes of the shoulders and spine. IMPRESSION: 1. Cardiomegaly without acute process. 2. Bibasilar opacities favor atelectasis. The above report was generated using voice recognition software. It may contain grammatical, syntax or spelling errors. Electronically signed by: Johnson Gamble M.D. 10/25/2017 4:38 PM Dictated Date/Time: 10/25/2017 4:36 PM
--- NOTE | 2017-10-25 16:42 | DIAGNOSTIC IMAGING REPORT ---
KUB HISTORY: Acute fever with recent lithotripsy fevers recent lithotripsy ureteral stent placement, r/o migratio COMPARISON: KUB 09/30/2017, CT 10/15/2013 FINDINGS: The bowel gas pattern is non-obstructive. There is no organomegaly. Left-sided ureteral stent in stable positioning. No definite calculi seen along the course of the ureters or within the expected locations of the kidneys. Vascular calcifications are seen within the pelvis and upper abdomen. Surgical clip and surgical suture material is noted within the central pelvis. No pneumoperitoneum or pneumatosis. No fracture. Multilevel degenerative changes about the spine with osteoarthritis about the pelvis and hips. Mild levoscoliosis of the thoracolumbar junction. IMPRESSION: Left ureteral stent in place without nephrolithiasis or ureteral calculi identified. Electronically signed by: Johnson Gamble M.D. 10/25/2017 4:40 PM Dictated Date/Time: 10/25/2017 4:38 PM
[2017-10-25 17:03] LABS: ALBUMIN 3.3 gm/dl (3.4-5.0); ALKALINE PHOSPHATASE 145 U/L (45-117); ALT/SGPT 23 U/L (12-78); BLOOD UREA NITROGEN 17 mg/dl (7-18); CARBON DIOXIDE 24 mmol/L (21-32); CREATININE 0.81 mg/dl (0.60-1.20); GLUCOSE 200 mg/dl (70-99); SODIUM 131 mmol/L (136-145); TOTAL PROTEIN 7.7 gm/dl (6.4-8.2)
[2017-10-25] MEDS ORDERED: OXYC7.5T65 PO (17:08)
[2017-10-25] MEDS ORDERED: NYST80OI TOP (17:08)
[2017-10-25] MEDS ORDERED: PHEN-876 PO (17:08)
[2017-10-25] MEDS ORDERED: TAMS0.4C38 PO (17:08)
[2017-10-25] MEDS ORDERED: FLUC100T4 PO (17:08)
[2017-10-25] MEDS ORDERED: CEPH-571 PO (17:08)
--- NOTE | 2017-10-25 17:38 | DIAGNOSTIC IMAGING REPORT ---
(RENAL)RETROPERITON COMP HISTORY: Pain fevers recent lithotripsy ureteral stent placement. COMPARISON: None. FINDINGS: Right kidney: Maximum dimension 10.9 cm. Slight fullness renal pelvis. Moderate cortical thinning and scarring Left kidney: Slight fullness renal collecting system. No evidence for angel hydronephrosis. Mild cortical scarring and thinning. Left ureteral stent in good position. Bladder: No bladder wall thickening. The bilateral ureteral jets were identified. IMPRESSION: 1. Slight fullness left renal collecting system. 2. Left ureteral stent in good position. 3. No evidence for angel hydronephrosis. The above report was generated using voice recognition software. It may contain grammatical, syntax or spelling errors. Electronically signed by: Juan Olsen M.D. 10/25/2017 5:36 PM Dictated Date/Time: 10/25/2017 5:35 PM
[2017-10-25 18:03] LABS: INFLUENZA A PCR Neg for Influ A (NEG); INFLUENZA B PCR Neg for Influ B (NEG)
[2017-10-25 18:38] LABS: POTASSIUM 3.6 mmol/L (3.5-5.1)
[2017-10-25] MEDS ORDERED: CIPROFLOXACIN 400MG / 200ML D5W IV STA (18:48)
[2017-10-25] MEDS ORDERED: OPTIRAY 320 IV PRN (19:00)
--- NOTE | 2017-10-25 19:55 | DIAGNOSTIC IMAGING REPORT ---
ABD/PELVIS IV CONTRAST ONLY CT DOSE: 601.84 mGy.cm HISTORY: Pain. Infection. UTI s/p lithotripsy/stent. TECHNIQUE: Multiaxial CT images of the abdomen and pelvis were performed following the use of intravenous contrast. A dose lowering technique was utilized adhering to the principles of ALARA. COMPARISON STUDY: 10/15/2013 FINDINGS: Lung bases are clear. Liver spleen and pancreas enhance uniformly. Considerable calcification of the upper abdominal and splenic vasculature. Minimal pre-existing nodularity left adrenal. Right kidney shows cortical scarring and cortical thinning. Is no evidence for hydronephrosis. There is a left ureteral stent in good position. There is a slight increase in left perinephric fat stranding with subtle thickening of the cortex of left kidney with a subtle decrease in enhancement characteristics. A low-grade pyelonephritis is not excluded. Left ureteral stent again is in good position. The bladder is midline with no contained calcifications. There are several uterine myometrial calcifications. Postoperative changes to the bowel are noted. Bowel pattern is considered nonobstructive. There is no free fluid within the pelvic cul-de-sac. IMPRESSION: 1. Findings suggesting a potential low-grade left renal pyelonephritis. 2. No evidence for hydronephrosis. 3. Left ureteral stent in good position. 4. No evidence for abscess or collection. 5. Incidental findings as discussed above which are considered chronic. The above report was generated using voice recognition software. It may contain grammatical, syntax or spelling errors. Electronically signed by: Juan Olsen M.D. 10/25/2017 7:53 PM Dictated Date/Time: 10/25/2017 7:48 PM
[2017-10-25] MEDS ORDERED: PIPERACILLIN/TAZOBACTAM 4.5 GM/100ML D5W IV STA (20:21)
[2017-10-25] MEDS ORDERED: MoRPHine SULFATE 4 MG/ML 1 ML CARP\\VIAL IV PRN (21:00)
[2017-10-25] MEDS ORDERED: GLUCOSE 10 TABS/TUBE PO PRN (21:00)
[2017-10-25] MEDS ORDERED: OXYCODONE/ACETAMINOPHEN 7.5-325 TAB PO PRN (21:00)
[2017-10-25] MEDS ORDERED: PROCHLORPERAZINE INJ 5 MG in SYRINGE 4 ML IV PRN (21:00)
[2017-10-25] MEDS ORDERED: GLUCOSE 40% GEL 15 GM TUBE PO PRN (21:00)
[2017-10-25] MEDS ORDERED: GLUCAGON FOR INJ 1 MG VIAL SQ PRN (21:00)
[2017-10-25] MEDS ORDERED: DEXTROSE 50% 50 ML SYR IV PRN (21:00)
[2017-10-25] MEDS ORDERED: INSULIN ASPART 100 UNITS/ML 3 ML PEN SC STA (21:16)
[2017-10-25] MEDS ORDERED: NSS + 20MEQ KCL 1000ML 1,000 ML IV ONE (22:15)
[2017-10-25 22:22] VITALS: BP 118/61; TEMP 36.7; O2SAT 97; Ht 162.6 cm; Wt 80.0 kg
--- NOTE | 2017-10-25 22:30 | HISTORY & PHYSICAL EXAMINATION ---
DATE OF ADMISSION: 10/25/2017 CHIEF COMPLAINT: Weakness, fever. HISTORY OF PRESENT ILLNESS: History obtained from the patient, family, and records. Medical history is significant for hypertension, DM2, insulin requiring, urolithiasis, past tobacco abuse. Recent confinement last September 2017 for obstructing left kidney stone. Patient underwent ureteral stent placement. Cultures grew Michelle glabrata. Yesterday, patient underwent cystoscopy, left ureteroscopy, lithotripsy, stone extraction and stent exchange at same day surgery. Patient discharged on Keflex, 3-day course of fluconazole and 5 day course of Nystatin. This morning, patient was not feeling well. Generalized weakness, fever, no chest pain, some nausea. Patient denies flank pain, hematuria. Brought to Emergency Room by family. CAT scan showed potential low grade left renal pyelonephritis, left ureteral stent in good position, no abscess. Patient is given Cipro and Zosyn in the ER. MEDICAL HISTORY: As above. SURGERIES: She has had bowel surgery, cholecystectomy, urologic procedures. HOME MEDICATIONS: Include Lantus, lisinopril, metoprolol, nystatin, Percocet, Flomax, vitamin E, Lipitor, vitamin C, Keflex, Os-Stiven, Diflucan. ALLERGIES: SULFA. FAMILY HISTORY: There is a family history of multiple myeloma, heart disease. PERSONAL AND SOCIAL HISTORY: Past tobacco abuse . No chronic intake of alcoholic beverages. Retired RN. REVIEW OF SYSTEMS: As per HPI, all 10 systems reviewed, all other ROS negative. PHYSICAL EXAMINATION: VITAL SIGNS: Blood pressure was noted to be 104/62, later SBP 90s, pulse rate 90, RR 20, temperature 39.3 O2 sats 90 on room air. GENERAL: Noted to be comfortable, obese, no respiratory distress. SKIN: Normal color, warm. HEENT: [place] palpebral conjunctivae. No ptosis. Dry mucosa. NECK: Short, supple. CHEST: CTA, No tenderness. HEART: RRR, no murmur. ABDOMEN: Some distention, nontender. Healed incisional scar. EXTREMITIES: No LE edema noted. No tenderness, no gross deformities NEUROLOGIC: Coherent. No gross focality. LABORATORIES: Hemoglobin was noted to be 13.3, white cells 8 platelets 130. Sodium noted to be 131, potassium 3.6, creatinine 1 glucose 200, lactic acid 1.21. CT as above. UA showed nitrite positive, WBCs. ASSESSMENT AND PLAN: 1. Complicated urinary tract infection. Recent urologic instrumentation/stent exchange. Prior history of MDR Escherichia coli as per records No overt sepsis for now. 2. Hypertension, blood pressure on the lower side. 3. Chronic anemia, hemoglobin greater than baseline hemoglobin of 10-11. Possible hemoconcentration 4. DM2, insulin requiring HgA1c of 8.5 last month 5. past tobacco abuse. GMF follow urine cultures, IV Zosyn for now Urology consult RE postop eval (ER provider already in touch with Dr. Gentile.) Decrease home antihypertensive doses for now given borderline BP. Basal insulin, ISS BG goal 140-180. DVT prophylaxis with Lovenox subQ. Full code. MTDD
[2017-10-25 22:39] VITALS: BP 108/67; PULSE 74; TEMP 36.4; O2SAT 97
[2017-10-25] MEDS: PHENAZOPYRIDINE HCL 200 MG TAB PO SCH (23:35)
[2017-10-25] MEDS: ATORVASTATIN 10 MG TAB PO SCH (23:35)
[2017-10-25] MEDS: INSULIN GLARGINE SOLOSTAR 100 UNITS/ML 3 ML PEN SC SCH (23:37)
[2017-10-26] VITALS (8 sets, daily range): BP systolic 102–127; BP diastolic 61–78; PULSE 86–95; TEMP 36.7–38.3; O2SAT 92–95
[2017-10-26] MEDS ORDERED: MAGNESIUM SULFATE 1GM / D5W 100 ML IV STA (01:29)
[2017-10-26] MEDS ORDERED: MAGNESIUM SULFATE 1GM / D5W 1 GM in PREMIXED IN D5W 100 ML IV ONE (01:30)
[2017-10-26] MEDS: PIPERACILL/TAZOBAC IV 3.375 GM in NSS 100ML IV SCH ×3 (02:23→18:27)
[2017-10-26] MEDS: INSULIN ASPART 100 UNITS/ML 3 ML PEN SC SCH ×4 (06:30→20:40)
[2017-10-26 07:36] LABS: BASO % 0.4 %; BASO ABS # 0.03 K/uL (0-0.2); EOS % 0.7 %; EOS ABS # 0.05 K/uL (0-0.5); HEMATOCRIT 35.4 % (37-47); HEMOGLOBIN 11.6 g/dL (12.0-16.0); IG# 0.02 K/uL (0.00-0.02); LYMPH % 25.4 %; LYMPH ABS # 1.84 K/uL (1.2-3.4); MEAN CELL VOLUME 88.5 fL (80-100); MEAN CORPUSCULAR HGB CONC 32.8 g/dl (32-36); MEAN PLATELET VOLUME 11.7 fL (7.4-10.4); MONO % 11.2 %; MONO ABS # 0.81 K/uL (0.11-0.59); PLATELET COUNT 167 K/uL (130-400); RED CELL DISTRIBUTION WIDTH CV 14.9 % (11.5-14.5); RED CELL DISTRIBUTION WIDTH SD 48.5 fL (36.4-46.3); WHITE BLOOD COUNT 7.25 K/uL (4.8-10.8)
[2017-10-26 07:51] LABS: INR 1.1 (0.9-1.1); PTT PATIENT 27.6 SECONDS (21.0-31.0)
[2017-10-26] MEDS: LISINOPRIL 5 MG TAB PO SCH (07:57)
[2017-10-26] MEDS: TAMSULOSIN HCL 0.4 MG CAP PO SCH (07:57)
[2017-10-26] MEDS: ACETAMINOPHEN 325 MG TAB PO PRN ×2 (07:57→18:49)
[2017-10-26] MEDS: NYSTATIN OINT 15 GM TUBE EXT SCH ×3 (07:57→21:16)
[2017-10-26] MEDS: PHENAZOPYRIDINE HCL 200 MG TAB PO SCH ×3 (07:57→21:15)
[2017-10-26] MEDS ORDERED: PIPERACILL/TAZOBAC CONSULT ACTIVE PRN (08:00)
[2017-10-26] MEDS ORDERED: FLUCONAZOLE 100 MG TAB PO SCH (08:00)
[2017-10-26 08:02] LABS: CALCIUM 7.9 mg/dl (8.5-10.1); CREATININE 0.6 mg/dl (0.60-1.20); POTASSIUM 3.4 mmol/L (3.5-5.1)
[2017-10-26] MEDS: ENOXAPARIN 40 MG/0.4 ML SYR SQ SCH (08:43)
[2017-10-26] MEDS: INSULIN GLARGINE SOLOSTAR 100 UNITS/ML 3 ML PEN SC SCH ×2 (08:45→21:17)
--- NOTE | 2017-10-26 11:45 | GENITOURINARY CONSULTATION ---
DATE OF CONSULTATION: 10/26/2017 REASON FOR THE CONSULT: History of recent ureteroscopy and laser lithotripsy, history of fever postop. HISTORY OF PRESENTATION: The patient is a 76-year-old female who had a stent placed for a stone on 09/30 and was discharged to home. The patient had a urine sample that did show a possible contamination after this was done, but she had apparently been on Cipro for some period of time after this. She had her procedure done to remove the stone on the by Dr. Trejo. The procedure appeared to go routinely and she went home. She went home on Diflucan and Pyridium and presented back with feeling poorly, having had a fever of over 39 prior to returning. Her white blood cell count has been normal. I spoke with the ER physician last night and suggested that she be admitted for observation. She has been started on broad-spectrum antibiotics and this morning she says she has diarrhea and she did have a temperature of 38.3 overnight. Urine cultures are pending. She has been placed on fluconazole, Nystatin application, and Zosyn empirically pending culture results. Because of the diarrhea, I have ordered a C. difficile and she has previously obviously been on antibiotics. In addition, I have reviewed the cultures and because one of the preop culture results did show lactobacillus species and yeast, not Michelle albicans, which may indicate either Michelle glabrata or possibly just contamination, I have suggested to the hospital who have spoken with infectious disease to evaluate the situation. The patient otherwise is not having pain today, but just feels weak and has diarrhea. PAST MEDICAL HISTORY: Significant for bowel surgery, cholecystectomy, and other urologic procedures. Patient does have history of diabetes and high blood pressure. MEDICATIONS: Include Lantus, lisinopril, and metoprolol. She had been discharged again on Nystatin powder, Diflucan, and Keflex. ALLERGIES: SHE HAS AN ALLERGY TO SULFA MEDICATIONS. 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 REVIEW OF SYSTEMS: Please refer to the admitting doctor's review of systems, they were all negative and reviewed. PHYSICAL EXAMINATION: GENERAL: The patient is an elderly female, in no obvious distress. HEENT: Unremarkable. RESPIRATORY: She has no respiratory distress. There is no significant pedal edema. GASTROINTESTINAL: No abdominal pain or flank pain to percussion. GENITOURINARY: Deferred. NECK: Supple. NEUROLOGIC: She is alert and oriented without obvious focal or sensory deficit. EXTREMITIES: Unremarkable. ASSESSMENT AND PLAN: Complicated urinary tract infection, history of anemia, history of fatigue. I have consulted infectious disease. I have also ordered a C. difficile test because of the diarrhea. I have discussed the case with the hospitalist.
--- NOTE | 2017-10-26 16:23 | Progress Note ---
Progress Note Date of Service Oct 26, 2017. Progress Note Subjective Patient seen this AM and again in afternoon. Since prior to being seen by the hospitalist, patient had 1 episode of diarrhea and during the course of the day , she had second episode of diarrhea. However, C.diff study as requested by urology service could not be performed because the stool sample was mixed with urine. Otherwise, patient has been asymptomatic. No vomiting. Denies abdominal pain. She would like to try to eat solid foods. Patient has been afebrile today after the 7:30 AM temperature of 100.9 F Physical Exam: General: no acute distress Heart: regular rate Lungs: CTABL, no wheezing, no use of acessory muscles, on room air Abdomen: soft, nontender, positive bowel sounds Back: no costovertebral tenderness Assessment and Plan This is a patient s/p Cystoscopy, Left Ureteroscopy, Laser Lithotripsy, Stone extraction of left uretal stone removal on 10/24/17 who went home on Diflucan ( patient's preop culture 10/07/17 showed lactobacillus species not florencio albicans ) and Pyridium and returned with fever CT abdomen pelvis with contrast on admission 10/25/17 Right kidney shows cortical scarring and cortical thinning. Is no evidence for hydronephrosis. There is a left ureteral stent in good position. There is a slight increase in left perinephric fat stranding with subtle thickening of the cortex of left kidney with a subtle decrease in enhancement characteristics. A low-grade pyelonephritis is not excluded. Left ureteral stent again is in good position. The bladder is midline with no contained calcifications. There are several uterine myometrial calcifications. Postoperative changes to the bowel are noted. Bowel pattern is considered nonobstructive. There is no free fluid within the pelvic cul-de-sac. IMPRESSION: 1. Findings suggesting a potential low-grade left renal pyelonephritis. 2. No evidence for hydronephrosis. 3. Left ureteral stent in good position. 4. No evidence for abscess or collection. 5. Incidental findings as discussed above which are considered chronic Given the above history of recent procedures and fever, patient is presumed to have complicated urinary tract infection and started on IV Zosyn The admission urinalysis 10/25/17 for which the presumed diagnosis of complicated UTI does not show bacteria and the urine culture shows no growth Will re-send urinalysis but unclear whether this will provide new results, patient denies dysuria - continue Pyridium and tamsulosin for urination for now to avoid future urinary pain symptoms Patient has been evaluated by urologist previous to the results of the admission urine culture and he recommended infectious disease consultation and C.difficile labs to be sent as patient is having diarrhea Patient's minimal leukocytosis is not supportive of C.difficile infection but so far attempts to collect the stool sample has been unsuccessful, will try to send stool study when patient is ready Alternatively, diarrhea may be from non-C.difficile reasons and side effect IV Zosyn The imaging studies was concerning for low-grade left renal pyelonephritis, despite negative urine culture to date, will continue broad spectrum IV Zosyn antibiotics if possible infectious left renal pyelonephritis Follow up blood cultures sent on 10/25/17 Awaiting infectious disease consult for further recommendations Other health issues Hypertension, on lisinopril Chronic anemia Continue statin DM2, continue insulin DVT prophylaxis with Lovenox subQ.
[2017-10-26] MEDS: METOPROLOL SUCC 25MG EXT REL TAB PO SCH (21:00)
[2017-10-26] MEDS: ATORVASTATIN 10 MG TAB PO SCH (21:14)
[2017-10-27] VITALS (7 sets, daily range): BP systolic 122–150; BP diastolic 69–99; PULSE 84–101; TEMP 36.6–38; O2SAT 92–98
[2017-10-27] MEDS: PIPERACILL/TAZOBAC IV 3.375 GM in NSS 100ML IV SCH (02:11)
[2017-10-27] MEDS: ACETAMINOPHEN 325 MG TAB PO PRN ×3 (02:18→21:15)
--- NOTE | 2017-10-27 07:29 | Progress Note ---
Progress Note Date of Service Oct 27, 2017. Progress Note ID Consult Dictated #[id number] A/P: 1. UTI -Change to caspo, will need 14 days -follow blood cultures -thank you
[2017-10-27] MEDS ORDERED: CASPOFUNGIN INJ 70 MG in SODIUM CHLORIDE 0.9% 250ML 250 ML IV ONE (08:00)
[2017-10-27] MEDS: TAMSULOSIN HCL 0.4 MG CAP PO SCH (08:14)
[2017-10-27] MEDS: LISINOPRIL 5 MG TAB PO SCH (08:15)
[2017-10-27] MEDS: PHENAZOPYRIDINE HCL 200 MG TAB PO SCH ×3 (08:15→21:00)
[2017-10-27] MEDS: ENOXAPARIN 40 MG/0.4 ML SYR SQ SCH (08:15)
[2017-10-27] MEDS: INSULIN GLARGINE SOLOSTAR 100 UNITS/ML 3 ML PEN SC SCH (08:17)
[2017-10-27] MEDS: INSULIN ASPART 100 UNITS/ML 3 ML PEN SC SCH ×4 (08:18→21:02)
[2017-10-27] MEDS: NYSTATIN OINT 15 GM TUBE EXT SCH ×3 (08:22→21:04)
--- NOTE | 2017-10-27 08:26 | INFECT. DISEASE CONSULTATION ---
DATE OF CONSULTATION: 10/27/2017 HISTORY OF PRESENT ILLNESS: The patient is a 76-year-old female who was admitted from home secondary to subjective fever at home. She recently had a urologic procedure, 1 day prior to admission and underwent a ureteral stent placement. She reportedly has outpatient cultures growing Michelle glabrata. Repeat cultures were done in the ER and her urine culture is negative; however, her UA is greater than 30 wbc's and yeast. There was no bacteria noted. She was placed on fluconazole and Zosyn. She did have a CAT scan of the abdomen and pelvis which showed left pyelonephritis. She denies any abdominal pain. She is feeling better today. She does admit to having fevers overnight. Her T-max was 37.9 and it was 39.1 on admission. She is tolerating antibiotics well. She denies any cough, shortness of breath or chest pain. Her remaining review of systems is reviewed and unremarkable. PAST MEDICAL HISTORY: Significant for hypertension, type 2 diabetes, kidney stones. PAST SURGICAL HISTORY: Significant for bowel surgery, cholecystectomy, and multiple urologic procedures for management of stones with recent stent placement. ALLERGIES: SHE IS ALLERGIC TO SULFA ANTIBIOTICS. FAMILY HISTORY: Noncontributory. SOCIAL HISTORY: Significant for history of tobacco use. She denies any alcohol or drug use. MEDICATIONS: Toprol-XL, Lantus, Lovenox, Flomax, lisinopril, fluconazole, Nystatin, Zosyn, Lipitor, Pyridium, Tylenol, Percocet, morphine. PHYSICAL EXAMINATION: VITAL SIGNS: She currently is afebrile. T-max 37.9, pulse 86, respiratory rate 16, blood pressure 127/72, oxygen saturation is 94% to 95% on room air. GENERAL: She is awake, alert, and oriented x3. She is in no acute distress. HEENT: Mucous membranes are moist. Extraocular muscles are intact. HEART: Regular. LUNGS: Clear. ABDOMEN: Soft and nondistended. EXTREMITIES: There is no edema. SKIN: Without rash. LABORATORY STUDIES: CBC on the , white blood cell count 7.2, hemoglobin 11.6, platelets 167. Chemistry panel, sodium 134, potassium 3.4, chloride 104, bicarbonate 20, BUN 12, creatinine 0.6, glucose is 164. UA as above. Cultures are negative to date. Blood cultures are pending. A C. diff was negative. IMAGING: As above. ASSESSMENT AND PLAN: Urinary tract infection with Michelle glabrata from outpatient cultures. She will be placed on caspofungin and she will likely need a 14-day course with retained stent. Thank you for this consultation.
[2017-10-27 08:35] LABS: BASO % 0.2 %; BASO ABS # 0.02 K/uL (0-0.2); EOS % 1.7 %; EOS ABS # 0.14 K/uL (0-0.5); HEMATOCRIT 36.4 % (37-47); HEMOGLOBIN 12.3 g/dL (12.0-16.0); IG# 0.02 K/uL (0.00-0.02); LYMPH % 21.2 %; LYMPH ABS # 1.79 K/uL (1.2-3.4); MEAN CELL VOLUME 87.5 fL (80-100); MEAN CORPUSCULAR HEMOGLOBIN 29.6 pg (25-34); MEAN PLATELET VOLUME 11.4 fL (7.4-10.4); MONO % 11.9 %; MONO ABS # 1.01 K/uL (0.11-0.59); NEUT % 64.8 %; NEUT ABS # 5.48 K/uL (1.4-6.5); PLATELET COUNT 142 K/uL (130-400); RED CELL DISTRIBUTION WIDTH CV 14.7 % (11.5-14.5); RED CELL DISTRIBUTION WIDTH SD 47.9 fL (36.4-46.3); WHITE BLOOD COUNT 8.46 K/uL (4.8-10.8)
[2017-10-27 08:37] LABS: MEAN CORPUSCULAR HGB CONC 33.8 g/dl (32-36)
[2017-10-27 09:20] LABS: ALBUMIN 2.6 gm/dl (3.4-5.0); CALCIUM 8.5 mg/dl (8.5-10.1); CREATININE 0.58 mg/dl (0.60-1.20); POTASSIUM 3.2 mmol/L (3.5-5.1); TOTAL PROTEIN 6.5 gm/dl (6.4-8.2)
--- NOTE | 2017-10-27 11:03 | Progress Note ---
Internal Med Progress Note Date of Service: Oct 27, 2017. Provider Documentation: Subjective Yesterday the evening temperature was 37.9C which is 100.2 F. No other elevated temperatures recorded today. Patient denies dysuria, abdominal pain, or flank pain. C.difficile negative. This AM the infectious disease doctor stopped the antibiotics and switch to IV antifungal caspofungin Physical Exam: General: no acute distress Heart: regular rate Lungs: CTABL, no wheezing, no use of accessory muscles, on room air Abdomen: soft, nontender, positive bowel sounds Extremities: no edema ASSESSMENT & PLAN: Assessment and Plan This is a patient s/p Cystoscopy, Left Ureteroscopy, Laser Lithotripsy, Stone extraction of left uretal stone removal on 10/24/17 who went home on Diflucan ( patient's preop culture 10/07/17 showed lactobacillus species not michelle albicans ) and Pyridium and returned with fever CT abdomen pelvis with contrast on admission 10/25/17 Right kidney shows cortical scarring and cortical thinning. Is no evidence for hydronephrosis. There is a left ureteral stent in good position. There is a slight increase in left perinephric fat stranding with subtle thickening of the cortex of left kidney with a subtle decrease in enhancement characteristics. A low-grade pyelonephritis is not excluded. Left ureteral stent again is in good position. The bladder is midline with no contained calcifications. There are several uterine myometrial calcifications. Postoperative changes to the bowel are noted. Bowel pattern is considered nonobstructive. There is no free fluid within the pelvic cul-de-sac. IMPRESSION: 1. Findings suggesting a potential low-grade left renal pyelonephritis. 2. No evidence for hydronephrosis. 3. Left ureteral stent in good position. 4. No evidence for abscess or collection. 5. Incidental findings as discussed above which are considered chronic Given the above history of recent procedures and fever, patient is diagnosed as having complicated urinary tract infection and started on IV Zosyn The admission urinalysis 10/25/17 for which the presumed diagnosis of complicated UTI does not show bacteria and the urine culture shows no growth admission Blood culture 10/25/17 no growth to date C.difficile negative As per infectious disease consult 10/27/17: "Urinary tract infection with Michelle glabrata from outpatient cultures. She will be placed on caspofungin and she will likely need a 14-day course with retained stent." Hospitalist would need to know and determine with the assistance from infectious disease consult that as the patient is being treated with IV caspofungin and re-assessed, whether patient will need IV only treatment as this may lead to possibility that patient would need PICC line for completion of a long duration of IV medication after medically cleared for hospital discharge Patient being followed by [facility] urology group, appreciate further recommendations Other health issues Hypertension, on lisinopril Chronic anemia Continue statin DM2, continue insulin DVT prophylaxis with Lovenox subQ. Vital Signs: Date Time Temp Pulse Resp B/P (MAP) Pulse Ox O2 Delivery O2 Flow Rate FiO2 10/27/17 08:00 Room Air 10/27/17 07:40 36.6 89 16 150/99 (116) 98 10/27/17 00:00 Room Air 10/26/17 22:50 36.7 86 16 127/72 (90) 94 Room Air 10/26/17 21:09 36.8 16 102/61 (75) 10/26/17 18:47 37.9 10/26/17 16:00 95 Room Air 10/26/17 14:43 37.2 95 16 121/78 (92) 95 Room Air Lab Results: Results Past 24 Hours Test 10/26/17 11:38 10/26/17 16:38 10/26/17 19:48 10/27/17 06:50 Range/Units Bedside Glucose 163 128 164 70-90 mg/dl Urine Color DK YELLOW Urine Appearance CLOUDY CLEAR Urine pH 5.0 4.5-7.5 Urine Specific [place] 1.021 1.000-1.030 Urine Protein 1+ NEG Urine Glucose (UA) 3+ NEG Urine Ketones 2+ NEG Urine Occult Blood 2+ NEG Urine Nitrite POS NEG Urine Bilirubin NEG NEG Urine Urobilinogen NEG NEG Urine Leukocyte Esterase MODERATE NEG Urine WBC (Auto) >30 0-5 /hpf Urine RBC (Auto) 0-4 0-4 /hpf Urine Hyaline Casts (Auto) 1-5 0-5 /lpf Urine Epithelial Cells (Auto) 10-20 0-5 /lpf Urine Bacteria (Auto) 1+ NEG Urine Yeast (Auto) BUDDING NONE PRSENT Test 10/27/17 08:10 10/27/17 08:11 Range/Units White Blood Count 8.46 4.8-10.8 K/uL Red Blood Count 4.16 4.2-5.4 M/uL Hemoglobin 12.3 12.0-16.0 g/dL Hematocrit 36.4 37-47 % Mean Corpuscular Volume 87.5 80-100 fL Mean Corpuscular Hemoglobin 29.6 25-34 pg Mean Corpuscular Hemoglobin Concent 33.8 32-36 g/dl Platelet Count 142 130-400 K/uL Mean Platelet Volume 11.4 7.4-10.4 fL Neutrophils (%) (Auto) 64.8 % Lymphocytes (%) (Auto) 21.2 % Monocytes (%) (Auto) 11.9 % Eosinophils (%) (Auto) 1.7 % Basophils (%) (Auto) 0.2 % Neutrophils # (Auto) 5.48 1.4-6.5 K/uL Lymphocytes # (Auto) 1.79 1.2-3.4 K/uL Monocytes # (Auto) 1.01 0.11-0.59 K/uL Eosinophils # (Auto) 0.14 0-0.5 K/uL Basophils # (Auto) 0.02 0-0.2 K/uL RDW Standard Deviation 47.9 36.4-46.3 fL RDW Coefficient of Variation 14.7 11.5-14.5 % Immature Granulocyte % (Auto) 0.2 % Immature Granulocyte # (Auto) 0.02 0.00-0.02 K/uL Sodium Level 133 136-145 mmol/L Potassium Level 3.2 3.5-5.1 mmol/L Chloride Level 101 98-107 mmol/L Carbon Dioxide Level 22 21-32 mmol/L Anion Gap 11.0 3-11 mmol/L Blood Urea Nitrogen 8 7-18 mg/dl Creatinine 0.58 0.60-1.20 mg/dl Est Creatinine Clear Calc Drug Dose 84.5 ml/min Estimated GFR () 103.8 Estimated GFR (Non- 89.5 BUN/Creatinine Ratio 13.9 10-20 Random Glucose 163 70-99 mg/dl Calcium Level 8.5 8.5-10.1 mg/dl Total Bilirubin 0.8 0.2-1 mg/dl Aspartate Amino Transf (AST/SGOT) 14 15-37 U/L Alanine Aminotransferase (ALT/SGPT) 16 12-78 U/L Alkaline Phosphatase 101 45-117 U/L Total Protein 6.5 6.4-8.2 gm/dl Albumin 2.6 3.4-5.0 gm/dl Globulin 3.9 2.5-4.0 gm/dl Albumin/Globulin Ratio 0.7 0.9-2 Bedside Glucose 158 70-90 mg/dl Microbiology Results 10/26/17 C.difficile Toxin B Gene (PCR) - Final, Complete No C. difficile toxin B gene detected
--- NOTE | 2017-10-27 12:50 | Progress Note ---
Subjective Date of Service: Oct 27, 2017. Subjective Pt evaluation today including: conversation w/ patient, conversation w/ family , physical exam, chart review, lab review, review of inpatient medication list Voiding: dickens catheter in place pt feeling better Problem List Medical Problems: (1) Pyelonephritis Status: Acute Objective Vital Signs Date Time Temp Pulse Resp B/P (MAP) Pulse Ox O2 Delivery O2 Flow Rate FiO2 10/27/17 08:00 Room Air 10/27/17 07:40 36.6 89 16 150/99 (116) 98 10/27/17 00:00 Room Air 10/26/17 22:50 36.7 86 16 127/72 (90) 94 Room Air 10/26/17 21:09 36.8 16 102/61 (75) 10/26/17 18:47 37.9 10/26/17 16:00 95 Room Air 10/26/17 14:43 37.2 95 16 121/78 (92) 95 Room Air Laboratory Results Last 24 Hours Test 10/26/17 16:38 10/26/17 19:48 10/27/17 06:50 10/27/17 08:10 Bedside Glucose 128 mg/dl 164 mg/dl Urine Color DK YELLOW Urine Appearance CLOUDY Urine pH 5.0 Urine Specific [place] 1.021 Urine Protein 1+ Urine Glucose (UA) 3+ Urine Ketones 2+ Urine Occult Blood 2+ Urine Nitrite POS Urine Bilirubin NEG Urine Urobilinogen NEG Urine Leukocyte Esterase MODERATE Urine WBC (Auto) >30 /hpf Urine RBC (Auto) 0-4 /hpf Urine Hyaline Casts (Auto) 1-5 /lpf Urine Epithelial Cells (Auto) 10-20 /lpf Urine Bacteria (Auto) 1+ Urine Yeast (Auto) BUDDING White Blood Count 8.46 K/uL Red Blood Count 4.16 M/uL Hemoglobin 12.3 g/dL Hematocrit 36.4 % Mean Corpuscular Volume 87.5 fL Mean Corpuscular Hemoglobin 29.6 pg Mean Corpuscular Hemoglobin Concent 33.8 g/dl Platelet Count 142 K/uL Mean Platelet Volume 11.4 fL Neutrophils (%) (Auto) 64.8 % Lymphocytes (%) (Auto) 21.2 % Monocytes (%) (Auto) 11.9 % Eosinophils (%) (Auto) 1.7 % Basophils (%) (Auto) 0.2 % Neutrophils # (Auto) 5.48 K/uL Lymphocytes # (Auto) 1.79 K/uL Monocytes # (Auto) 1.01 K/uL Eosinophils # (Auto) 0.14 K/uL Basophils # (Auto) 0.02 K/uL RDW Standard Deviation 47.9 fL RDW Coefficient of Variation 14.7 % Immature Granulocyte % (Auto) 0.2 % Immature Granulocyte # (Auto) 0.02 K/uL Sodium Level 133 mmol/L Potassium Level 3.2 mmol/L Chloride Level 101 mmol/L Carbon Dioxide Level 22 mmol/L Anion Gap 11.0 mmol/L Blood Urea Nitrogen 8 mg/dl Creatinine 0.58 mg/dl Est Creatinine Clear Calc Drug Dose 84.5 ml/min Estimated GFR () 103.8 Estimated GFR (Non- 89.5 BUN/Creatinine Ratio 13.9 Random Glucose 163 mg/dl Calcium Level 8.5 mg/dl Total Bilirubin 0.8 mg/dl Aspartate Amino Transf (AST/SGOT) 14 U/L Alanine Aminotransferase (ALT/SGPT) 16 U/L Alkaline Phosphatase 101 U/L Total Protein 6.5 gm/dl Albumin 2.6 gm/dl Globulin 3.9 gm/dl Albumin/Globulin Ratio 0.7 Test 10/27/17 08:11 10/27/17 11:33 Bedside Glucose 158 mg/dl 225 mg/dl Assessment and Plan given florencio glabrada agree with caspofungin will leave to ID whether pt should continue other Iv antibiotic Also could consider bladder irrigation with amphoteracin in addition to caspofungin if ID feels beneficial
[2017-10-27] MEDS ORDERED: LOPERAMIDE HCL 2 MG CAP PO STA (14:15)
[2017-10-27] MEDS ORDERED: AMPHOTERICIN B IRRIGATION IR SCH ×2 (20:00)
[2017-10-27] MEDS ORDERED: STERILE WATER IR SCH ×2 (20:00)
[2017-10-27] MEDS: METOPROLOL SUCC 25MG EXT REL TAB PO SCH (21:01)
[2017-10-27] MEDS: ATORVASTATIN 10 MG TAB PO SCH (21:01)
[2017-10-27] MEDS ORDERED: INSULIN GLARGINE SOLOSTAR 100 UNITS/ML 3 ML PEN SC ONE (21:15)
[2017-10-27] MEDS ORDERED: NSS + 20MEQ KCL 1000ML 1,000 ML IV ONE (21:15)
[2017-10-28 07:23] VITALS: BP 130/74; PULSE 80; TEMP 37.1; O2SAT 91
[2017-10-28 07:57] LABS: BASO % 0.3 %; BASO ABS # 0.02 K/uL (0-0.2); EOS % 2.1 %; EOS ABS # 0.16 K/uL (0-0.5); HEMATOCRIT 34.1 % (37-47); IG# 0.02 K/uL (0.00-0.02); LYMPH % 30.5 %; LYMPH ABS # 2.28 K/uL (1.2-3.4); MEAN CELL VOLUME 87.2 fL (80-100); MEAN CORPUSCULAR HEMOGLOBIN 28.1 pg (25-34); MEAN PLATELET VOLUME 11.1 fL (7.4-10.4); MONO % 12.6 %; MONO ABS # 0.94 K/uL (0.11-0.59); NEUT % 54.2 %; NEUT ABS # 4.06 K/uL (1.4-6.5); PLATELET COUNT 167 K/uL (130-400); RED CELL DISTRIBUTION WIDTH CV 14.6 % (11.5-14.5); RED CELL DISTRIBUTION WIDTH SD 46.6 fL (36.4-46.3); WHITE BLOOD COUNT 7.48 K/uL (4.8-10.8)
[2017-10-28 07:58] LABS: MEAN CORPUSCULAR HGB CONC 32.3 g/dl (32-36)
[2017-10-28 08:17] LABS: ALBUMIN 2.3 gm/dl (3.4-5.0); CALCIUM 8.3 mg/dl (8.5-10.1); CREATININE 0.53 mg/dl (0.60-1.20); POTASSIUM 3.2 mmol/L (3.5-5.1)
[2017-10-28 08:20] LABS: TOTAL PROTEIN 6.1 gm/dl (6.4-8.2)
[2017-10-28] MEDS: PHENAZOPYRIDINE HCL 200 MG TAB PO SCH ×3 (08:30→21:52)
[2017-10-28] MEDS: ENOXAPARIN 40 MG/0.4 ML SYR SQ SCH (08:30)
[2017-10-28] MEDS: NYSTATIN OINT 15 GM TUBE EXT SCH ×3 (08:30→21:52)
[2017-10-28] MEDS: TAMSULOSIN HCL 0.4 MG CAP PO SCH (08:30)
[2017-10-28] MEDS: LISINOPRIL 5 MG TAB PO SCH (08:30)
[2017-10-28] MEDS: INSULIN ASPART 100 UNITS/ML 3 ML PEN SC SCH ×5 (09:10→22:05)
[2017-10-28] MEDS: AMPHOTERICIN B IRRIGATION IR SCH ×2 (09:10)
[2017-10-28] MEDS: CASPOFUNGIN INJ 50 MG in SODIUM CHLORIDE 0.9% 250ML 250 ML IV SCH (09:10)
[2017-10-28] MEDS: STERILE WATER IR SCH ×2 (09:10)
--- NOTE | 2017-10-28 09:11 | Progress Note ---
Subjective Date of Service: Oct 28, 2017. Subjective Pt evaluation today including: conversation w/ patient, chart review, lab review Voiding: dickens catheter in place (patent, draining clear, yellow/orange urine with amphotericin B bladder irrigation running) 76 yo female with UTI s/p URS. POD #4. Pt states she feels run down this morning. Denies pain. Denies n/v. Currently receiving IV Caspofungin and amphotericin B bladder irrigation. UC&S grew yeast, not florencio albicans. Unfortunately her tethered stent fell out yesterday. Problem List Medical Problems: (1) Pyelonephritis Status: Acute Review of Systems Constitutional: No fever, No chills Respiratory: No shortness of breath Cardiac: No chest pain Abdomen: No pain, No nausea, No vomiting Female : No dysuria, No hematuria Heme: No abnormal bleeding/bruising Objective Vital Signs Date Time Temp Pulse Resp B/P (MAP) Pulse Ox O2 Delivery O2 Flow Rate FiO2 10/28/17 07:23 37.1 80 20 130/74 (92) 91 10/28/17 00:05 Room Air 10/27/17 22:48 37.6 84 18 122/69 (86) 92 Room Air 10/27/17 20:56 37.8 95 16 140/73 (95) 93 Room Air 10/27/17 20:05 Room Air 10/27/17 18:30 37.7 10/27/17 17:46 37.7 10/27/17 16:35 37.7 10/27/17 16:00 Room Air 10/27/17 15:28 38.0 101 20 124/81 (95) 92 Room Air Physical Exam General Appearance: no apparent distress Eyes: normal inspection ENT: hearing grossly normal Neck: no JVD Respiratory/Chest: no respiratory distress, no accessory muscle use Cardiovascular: no JVD Extremities: normal inspection Neurologic/Psychiatric: alert, normal mood/affect, oriented x 3 Skin: normal color Laboratory Results Last 24 Hours Test 10/27/17 11:33 10/27/17 16:24 10/27/17 19:52 10/28/17 07:37 Bedside Glucose 225 mg/dl 231 mg/dl 275 mg/dl 164 mg/dl Test 10/28/17 07:44 White Blood Count 7.48 K/uL Red Blood Count 3.91 M/uL Hemoglobin 11.0 g/dL Hematocrit 34.1 % Mean Corpuscular Volume 87.2 fL Mean Corpuscular Hemoglobin 28.1 pg Mean Corpuscular Hemoglobin Concent 32.3 g/dl Platelet Count 167 K/uL Mean Platelet Volume 11.1 fL Neutrophils (%) (Auto) 54.2 % Lymphocytes (%) (Auto) 30.5 % Monocytes (%) (Auto) 12.6 % Eosinophils (%) (Auto) 2.1 % Basophils (%) (Auto) 0.3 % Neutrophils # (Auto) 4.06 K/uL Lymphocytes # (Auto) 2.28 K/uL Monocytes # (Auto) 0.94 K/uL Eosinophils # (Auto) 0.16 K/uL Basophils # (Auto) 0.02 K/uL RDW Standard Deviation 46.6 fL RDW Coefficient of Variation 14.6 % Immature Granulocyte % (Auto) 0.3 % Immature Granulocyte # (Auto) 0.02 K/uL Sodium Level 135 mmol/L Potassium Level 3.2 mmol/L Chloride Level 103 mmol/L Carbon Dioxide Level 25 mmol/L Anion Gap 7.0 mmol/L Blood Urea Nitrogen 7 mg/dl Creatinine 0.53 mg/dl Est Creatinine Clear Calc Drug Dose 92.4 ml/min Estimated GFR () 106.9 Estimated GFR (Non- 92.2 BUN/Creatinine Ratio 13.4 Random Glucose 161 mg/dl Calcium Level 8.3 mg/dl Total Bilirubin 0.6 mg/dl Aspartate Amino Transf (AST/SGOT) 11 U/L Alanine Aminotransferase (ALT/SGPT) 13 U/L Alkaline Phosphatase 92 U/L Total Protein 6.1 gm/dl Albumin 2.3 gm/dl Globulin 3.8 gm/dl Albumin/Globulin Ratio 0.6 Assessment and Plan POD #4 s/p left URS; fungal UTI with fevers AFVSS. Discussed case with Dr. Trejo this morning. Will hold off on repeat imaging unless the pt decompensates or develops worsening pain. Will avoid any surgical interventions at this time. Typically pt's will have amphotericin B bladder irrigation/instillation for 5 days while inpatient. Will defer this decision and IV caspofungin management to Dr. Mooney. Appreciate the consult. Will continue to follow along with primary service.
--- NOTE | 2017-10-28 09:33 | Medical Student: [facility] ---
Med Student Progress Note Date of Service Oct 28, 2017. Subjective Pt evaluation today including: conversation w/ patient, conversation w/ family , physical exam, chart review, lab review, review of studies, review of inpatient medication list Voiding: dickens catheter in place (3way, with Amnphotericin B irrigation, draining yellow) Ms. Odonnell is a 76 yo F is s/p Left Uscope with lazer lithotripy and Left stent placement on 10/24. Sent home on Keflex, Pyridium and Diflucan. Returned with fevers on 10/25. Preliminary UC&S positive for yeast, not florencio albicans. Infectious disease consulted, currently on caspofungin. Amphotericin B bladder irrigation initiated last evening as well. Devin [facility] RN, at bedside with patient. Patient is sitting up in chair, stating she feels generally unwell but denies fevers, chills, n/v/d, chest pain, SOB today. Review of Systems Constitutional: + fatigue, No fever, No chills, No weakness Respiratory: No cough, No shortness of breath Cardiac: No chest pain Abdomen: No pain, No vomiting, No diarrhea Female : + see HPI Neurologic: No weakness Endo: + fatigue Objective Vital Signs Date Time Temp Pulse Resp B/P (MAP) Pulse Ox O2 Delivery O2 Flow Rate FiO2 10/28/17 07:23 37.1 80 20 130/74 (92) 91 10/28/17 00:05 Room Air 10/27/17 22:48 37.6 84 18 122/69 (86) 92 Room Air 10/27/17 20:56 37.8 95 16 140/73 (95) 93 Room Air 10/27/17 20:05 Room Air 10/27/17 18:30 37.7 10/27/17 17:46 37.7 10/27/17 16:35 37.7 10/27/17 16:00 Room Air 10/27/17 15:28 38.0 101 20 124/81 (95) 92 Room Air Physical Exam General Appearance: WD/WN, no apparent distress ENT: hearing grossly normal Neck: no JVD Respiratory/Chest: no respiratory distress, no accessory muscle use Cardiovascular: no murmur Abdomen: non tender Neurologic/Psychiatric: no motor/sensory deficits, alert, normal mood/affect, oriented x 3 Skin: normal color, warm/dry, no rash Laboratory Results Last 24 Hours Test 10/27/17 11:33 10/27/17 16:24 10/27/17 19:52 10/28/17 07:37 Bedside Glucose 225 mg/dl 231 mg/dl 275 mg/dl 164 mg/dl Test 10/28/17 07:44 White Blood Count 7.48 K/uL Red Blood Count 3.91 M/uL Hemoglobin 11.0 g/dL Hematocrit 34.1 % Mean Corpuscular Volume 87.2 fL Mean Corpuscular Hemoglobin 28.1 pg Mean Corpuscular Hemoglobin Concent 32.3 g/dl Platelet Count 167 K/uL Mean Platelet Volume 11.1 fL Neutrophils (%) (Auto) 54.2 % Lymphocytes (%) (Auto) 30.5 % Monocytes (%) (Auto) 12.6 % Eosinophils (%) (Auto) 2.1 % Basophils (%) (Auto) 0.3 % Neutrophils # (Auto) 4.06 K/uL Lymphocytes # (Auto) 2.28 K/uL Monocytes # (Auto) 0.94 K/uL Eosinophils # (Auto) 0.16 K/uL Basophils # (Auto) 0.02 K/uL RDW Standard Deviation 46.6 fL RDW Coefficient of Variation 14.6 % Immature Granulocyte % (Auto) 0.3 % Immature Granulocyte # (Auto) 0.02 K/uL Sodium Level 135 mmol/L Potassium Level 3.2 mmol/L Chloride Level 103 mmol/L Carbon Dioxide Level 25 mmol/L Anion Gap 7.0 mmol/L Blood Urea Nitrogen 7 mg/dl Creatinine 0.53 mg/dl Est Creatinine Clear Calc Drug Dose 92.4 ml/min Estimated GFR () 106.9 Estimated GFR (Non- 92.2 BUN/Creatinine Ratio 13.4 Random Glucose 161 mg/dl Calcium Level 8.3 mg/dl Total Bilirubin 0.6 mg/dl Aspartate Amino Transf (AST/SGOT) 11 U/L Alanine Aminotransferase (ALT/SGPT) 13 U/L Alkaline Phosphatase 92 U/L Total Protein 6.1 gm/dl Albumin 2.3 gm/dl Globulin 3.8 gm/dl Albumin/Globulin Ratio 0.6 Assessment and Plan Assessment and Plan: A/P: POD day #4 u-scope, Left lazer lithotripy and L stent placement. Fungal UTI with pyelonephritis Continue ID recommendations for IV Caspofungin and Amphotericin B bladder instillation therapy. Left urinary stent was tethered to patients leg, fell out last evening while bathing. Patient currently denies pain, WBC WNL and afebrile, will continue to monitor for now. Will consider repeat imaging if patient condition changes, decompensates or pain worsens. Drew continue to monitor with primary service. Keep originally scheduled followup with Dr. Zambrano as scheduled on November 06.
[2017-10-28] MEDS ORDERED: POTASSIUM CHLORIDE 20 MEQ TABCR PO ONE (10:00)
--- NOTE | 2017-10-28 10:34 | Progress Note ---
Subjective Date of Service: Oct 28, 2017. Subjective Pt evaluation today including: conversation w/ patient, conversation w/ family , physical exam, chart review, lab review family at bedside, fevers overnight, now afebrile. feeling weak this am. ate breakfast. started ampho bladder irrigation via urology yesterday. also remains on caspo. tolerating well. repeat urine culture wih non albicans yeast. blood cultures remain negative. stent fell out yesterday. wbc nml. currently no n/v/d/ abd pain. tolerating antifungals. all remaining ros reviewed and are negative. Problem List Medical Problems: (1) Pyelonephritis Status: Acute Objective Vital Signs Date Time Temp Pulse Resp B/P (MAP) Pulse Ox O2 Delivery O2 Flow Rate FiO2 10/28/17 08:30 Room Air 10/28/17 07:23 37.1 80 20 130/74 (92) 91 10/28/17 00:05 Room Air 10/27/17 22:48 37.6 84 18 122/69 (86) 92 Room Air 10/27/17 20:56 37.8 95 16 140/73 (95) 93 Room Air 10/27/17 20:05 Room Air 10/27/17 18:30 37.7 10/27/17 17:46 37.7 10/27/17 16:35 37.7 10/27/17 16:00 Room Air 10/27/17 15:28 38.0 101 20 124/81 (95) 92 Room Air Physical Exam General Appearance: WD/WN, no apparent distress Eyes: normal inspection, EOMI Neck: supple Respiratory/Chest: lungs clear, no respiratory distress Cardiovascular: regular rate, rhythm, no edema Abdomen: non tender, soft Extremities: non-tender, no pedal edema Neurologic/Psychiatric: no motor/sensory deficits, oriented x 3 Skin: normal color Laboratory Results Item Value Date Time Urine Culture - Preliminary Resulted 10/25/17 1807 Urine , Clean Catch Yeast Not Michelle Albicans Blood Culture - Preliminary Resulted 10/25/17 1455 Blood NO GROWTH TO DATE. Blood Culture - Preliminary Resulted 10/25/17 1445 Blood NO GROWTH TO DATE. Last 24 Hours Test 10/27/17 11:33 10/27/17 16:24 10/27/17 19:52 10/28/17 07:37 Bedside Glucose 225 mg/dl 231 mg/dl 275 mg/dl 164 mg/dl Test 10/28/17 07:44 White Blood Count 7.48 K/uL Red Blood Count 3.91 M/uL Hemoglobin 11.0 g/dL Hematocrit 34.1 % Mean Corpuscular Volume 87.2 fL Mean Corpuscular Hemoglobin 28.1 pg Mean Corpuscular Hemoglobin Concent 32.3 g/dl Platelet Count 167 K/uL Mean Platelet Volume 11.1 fL Neutrophils (%) (Auto) 54.2 % Lymphocytes (%) (Auto) 30.5 % Monocytes (%) (Auto) 12.6 % Eosinophils (%) (Auto) 2.1 % Basophils (%) (Auto) 0.3 % Neutrophils # (Auto) 4.06 K/uL Lymphocytes # (Auto) 2.28 K/uL Monocytes # (Auto) 0.94 K/uL Eosinophils # (Auto) 0.16 K/uL Basophils # (Auto) 0.02 K/uL RDW Standard Deviation 46.6 fL RDW Coefficient of Variation 14.6 % Immature Granulocyte % (Auto) 0.3 % Immature Granulocyte # (Auto) 0.02 K/uL Sodium Level 135 mmol/L Potassium Level 3.2 mmol/L Chloride Level 103 mmol/L Carbon Dioxide Level 25 mmol/L Anion Gap 7.0 mmol/L Blood Urea Nitrogen 7 mg/dl Creatinine 0.53 mg/dl Est Creatinine Clear Calc Drug Dose 92.4 ml/min Estimated GFR () 106.9 Estimated GFR (Non- 92.2 BUN/Creatinine Ratio 13.4 Random Glucose 161 mg/dl Calcium Level 8.3 mg/dl Total Bilirubin 0.6 mg/dl Aspartate Amino Transf (AST/SGOT) 11 U/L Alanine Aminotransferase (ALT/SGPT) 13 U/L Alkaline Phosphatase 92 U/L Total Protein 6.1 gm/dl Albumin 2.3 gm/dl Globulin 3.8 gm/dl Albumin/Globulin Ratio 0.6 Assessment and Plan (1) Pyelonephritis Assessment & Plan: continue current therapy. follow blood cultures.
--- NOTE | 2017-10-28 12:16 | Clinical Documentation Query ---
AILYN Lindquist : CLINICAL DOCUMENTATION QUERY Documentation includes "complicated UTI". This can be a useful classification to guide management. However, this is not explicitly linking the UTI to the recent cystoscopy/instrumentation. If you feel the UTI is likely the consequence of procedural instrumentation, consider explicitly stating so as suggested below in order to avoid clam bed worker uncertainty at time of discharge. Thank you. In your clinical opinion is this patient being managed for: ( x ) Complicated UTI, a postprocedural complication of care ( ) Not Agree ( ) Other explanation of clinical findings (Please Explain) ( ) Unable to determine (Please Define) ( ) Need to Discuss The medical record reflects the following clinical findings, treatment, and risk factors. Clinical Indicators: As above Treatment: Antibiotics, ID consultation, cultures Risk Factors: Recent cystoscopy/instrumentation. Please clarify and document your clinical opinion in the progress notes and discharge summary. Terms such as "probable", "suspected", "likely", "questionable", "possible", or "still to be ruled out" are acceptable. IF IN AGREEMENT, YOU MUST DOCUMENT ABOVE DIAGNOSTIC STATEMENT IN DAILY PROGRESS NOTES AND DISCHARGE SUMMARY. This document is not part of the patient's record. Thank You, Dylon Randle, MERRY [phone]
[2017-10-28] MEDS: LOPERAMIDE HCL 2 MG CAP PO PRN (12:43)
[2017-10-28 15:53] VITALS: BP 106/67; PULSE 84; TEMP 37.6; O2SAT 91
[2017-10-28] MEDS: ACETAMINOPHEN 325 MG TAB PO PRN ×2 (15:59→21:56)
[2017-10-28 16:00] VITALS: O2SAT 91
--- NOTE | 2017-10-28 16:12 | Progress Note ---
Internal Med Progress Note Date of Service: Oct 28, 2017. Provider Documentation: Subjective Patient reports stool has been more formed but still loose. She is tolerating the bladder irrigation with amphotericin. Patient had difficulties with IV access this morning and patient consented to PICC line/midline. A PICC line was placed in right arm Physical Exam: General: no acute distress Heart: regular rate Lungs: CTABL, no wheezing, no use of accessory muscles, on room air Abdomen: soft, nontender, positive bowel sounds Extremities: right arm PICC line, no lower extremity edema : bladder irrigation in place and running ASSESSMENT & PLAN: Hospital Course This is a patient s/p Cystoscopy, Left Ureteroscopy, Laser Lithotripsy, Stone extraction of left uretal stone removal on 10/24/17 who went home on Diflucan ( patient's preop culture 10/07/17 showed lactobacillus species not michelle albicans ) and Pyridium and returned with fever CT abdomen pelvis with contrast on admission 10/25/17 Right kidney shows cortical scarring and cortical thinning. Is no evidence for hydronephrosis. There is a left ureteral stent in good position. There is a slight increase in left perinephric fat stranding with subtle thickening of the cortex of left kidney with a subtle decrease in enhancement characteristics. A low-grade pyelonephritis is not excluded. Left ureteral stent again is in good position. The bladder is midline with no contained calcifications. There are several uterine myometrial calcifications. Postoperative changes to the bowel are noted. Bowel pattern is considered nonobstructive. There is no free fluid within the pelvic cul-de-sac. IMPRESSION: 1. Findings suggesting a potential low-grade left renal pyelonephritis. 2. No evidence for hydronephrosis. 3. Left ureteral stent in good position. 4. No evidence for abscess or collection. 5. Incidental findings as discussed above which are considered chronic Given the above history of recent procedures and fever, patient is diagnosed as having complicated urinary tract infection, possible postop complication and started on IV Zosyn The admission urinalysis 10/25/17 for which the presumed diagnosis of complicated UTI does not show bacteria and the urine culture shows no growth admission Blood culture 10/25/17 no growth to date C.difficile negative Plan: IV Zosyn stopped on 10/27/17 as per infectious disease consult started patient on caspofungin for the urinary tract infection based on the Michelle glabrata from previous outpatient cultures and likely need a 14-day course with the left uretal stent PICC line placed on 10/28/17 after patient lost peripheral IV access Patient also started on bladder irrigation with amphotericin on 10/27/17 as recommended by [facility] urology (The typical course is 5 days as per urology) As per [facility] urology notes, the patient lost the tethered stent (fell out?). Monitor daily labs while on antifungals Hospitalist medicine appreciate further recommendations from the Infectious Disease and Urology specialties. Dr. Saeed will be the hospitalist doctor starting on 10/29/17 Other health issues Hypokalemia secondary to diarrhea, replete potassium an monitor, C.diff. negative, patient on loperamide for the diarrhea. Hypertension, on lisinopril Chronic anemia Continue statin DM2, continue insulin DVT prophylaxis with Lovenox subQ. Vital Signs: Date Time Temp Pulse Resp B/P (MAP) Pulse Ox O2 Delivery O2 Flow Rate FiO2 10/28/17 15:53 37.6 84 18 106/67 (80) 91 10/28/17 08:30 Room Air 10/28/17 07:23 37.1 80 20 130/74 (92) 91 10/28/17 00:05 Room Air 10/27/17 22:48 37.6 84 18 122/69 (86) 92 Room Air 10/27/17 20:56 37.8 95 16 140/73 (95) 93 Room Air 10/27/17 20:05 Room Air 10/27/17 18:30 37.7 10/27/17 17:46 37.7 10/27/17 16:35 37.7 Lab Results: Results Past 24 Hours Test 10/27/17 19:52 10/28/17 07:37 10/28/17 07:44 10/28/17 12:00 Range/Units Bedside Glucose 275 164 216 70-90 mg/dl White Blood Count 7.48 4.8-10.8 K/uL Red Blood Count 3.91 4.2-5.4 M/uL Hemoglobin 11.0 12.0-16.0 g/dL Hematocrit 34.1 37-47 % Mean Corpuscular Volume 87.2 80-100 fL Mean Corpuscular Hemoglobin 28.1 25-34 pg Mean Corpuscular Hemoglobin Concent 32.3 32-36 g/dl Platelet Count 167 130-400 K/uL Mean Platelet Volume 11.1 7.4-10.4 fL Neutrophils (%) (Auto) 54.2 % Lymphocytes (%) (Auto) 30.5 % Monocytes (%) (Auto) 12.6 % Eosinophils (%) (Auto) 2.1 % Basophils (%) (Auto) 0.3 % Neutrophils # (Auto) 4.06 1.4-6.5 K/uL Lymphocytes # (Auto) 2.28 1.2-3.4 K/uL Monocytes # (Auto) 0.94 0.11-0.59 K/uL Eosinophils # (Auto) 0.16 0-0.5 K/uL Basophils # (Auto) 0.02 0-0.2 K/uL RDW Standard Deviation 46.6 36.4-46.3 fL RDW Coefficient of Variation 14.6 11.5-14.5 % Immature Granulocyte % (Auto) 0.3 % Immature Granulocyte # (Auto) 0.02 0.00-0.02 K/uL Sodium Level 135 136-145 mmol/L Potassium Level 3.2 3.5-5.1 mmol/L Chloride Level 103 98-107 mmol/L Carbon Dioxide Level 25 21-32 mmol/L Anion Gap 7.0 3-11 mmol/L Blood Urea Nitrogen 7 7-18 mg/dl Creatinine 0.53 0.60-1.20 mg/dl Est Creatinine Clear Calc Drug Dose 92.4 ml/min Estimated GFR () 106.9 Estimated GFR (Non- 92.2 BUN/Creatinine Ratio 13.4 10-20 Random Glucose 161 70-99 mg/dl Calcium Level 8.3 8.5-10.1 mg/dl Total Bilirubin 0.6 0.2-1 mg/dl Aspartate Amino Transf (AST/SGOT) 11 15-37 U/L Alanine Aminotransferase (ALT/SGPT) 13 12-78 U/L Alkaline Phosphatase 92 45-117 U/L Total Protein 6.1 6.4-8.2 gm/dl Albumin 2.3 3.4-5.0 gm/dl Globulin 3.8 2.5-4.0 gm/dl Albumin/Globulin Ratio 0.6 0.9-2
[2017-10-28 18:02] VITALS: TEMP 37.2
[2017-10-28] MEDS ORDERED: INSULIN GLARGINE SOLOSTAR 100 UNITS/ML 3 ML PEN SC SCH (21:00)
[2017-10-28 21:46] VITALS: BP 128/62; PULSE 83; TEMP 38
[2017-10-28] MEDS ORDERED: INSULIN GLARGINE SOLOSTAR 100 UNITS/ML 3 ML PEN SC ONE (21:49)
[2017-10-28] MEDS: ATORVASTATIN 10 MG TAB PO SCH (21:52)
[2017-10-28] MEDS: METOPROLOL SUCC 25MG EXT REL TAB PO SCH (21:53)
[2017-10-28] MEDS ORDERED: NSS + 20MEQ KCL 1000ML 1,000 ML IV ONE (22:00)
[2017-10-28 23:40] VITALS: BP 124/73; PULSE 80; TEMP 37.1; O2SAT 94
[2017-10-29] VITALS (8 sets, daily range): BP systolic 126–140; BP diastolic 70–88; PULSE 82–97; TEMP 37.2–38.3; O2SAT 92–95
[2017-10-29 06:05] LABS: BASO % 0.6 %; BASO ABS # 0.05 K/uL (0-0.2); EOS % 3.3 %; HEMATOCRIT 32.9 % (37-47); HEMOGLOBIN 10.7 g/dL (12.0-16.0); IG# 0.04 K/uL (0.00-0.02); LYMPH % 35.4 %; MEAN CELL VOLUME 87.5 fL (80-100); MEAN CORPUSCULAR HEMOGLOBIN 28.5 pg (25-34); MEAN CORPUSCULAR HGB CONC 32.5 g/dl (32-36); MEAN PLATELET VOLUME 10.9 fL (7.4-10.4); MONO % 11.5 %; MONO ABS # 1.04 K/uL (0.11-0.59); NEUT % 48.8 %; PLATELET COUNT 187 K/uL (130-400); RED CELL DISTRIBUTION WIDTH CV 14.9 % (11.5-14.5); RED CELL DISTRIBUTION WIDTH SD 47.9 fL (36.4-46.3); WHITE BLOOD COUNT 9.03 K/uL (4.8-10.8)
[2017-10-29 06:38] LABS: ALBUMIN 2.3 gm/dl (3.4-5.0); CALCIUM 8.1 mg/dl (8.5-10.1); CREATININE 0.62 mg/dl (0.60-1.20); POTASSIUM 3.5 mmol/L (3.5-5.1)
[2017-10-29 06:41] LABS: TOTAL PROTEIN 6.2 gm/dl (6.4-8.2)
[2017-10-29] MEDS: CASPOFUNGIN INJ 50 MG in SODIUM CHLORIDE 0.9% 250ML 250 ML IV SCH (08:00)
[2017-10-29] MEDS: PHENAZOPYRIDINE HCL 200 MG TAB PO SCH ×2 (08:00→14:00)
[2017-10-29] MEDS: LISINOPRIL 5 MG TAB PO SCH (08:01)
[2017-10-29] MEDS: TAMSULOSIN HCL 0.4 MG CAP PO SCH (08:01)
[2017-10-29] MEDS: STERILE WATER IR SCH ×2 (08:01)
[2017-10-29] MEDS: AMPHOTERICIN B IRRIGATION IR SCH ×2 (08:01)
[2017-10-29] MEDS: NYSTATIN OINT 15 GM TUBE EXT SCH (08:02)
[2017-10-29] MEDS: ENOXAPARIN 40 MG/0.4 ML SYR SQ SCH (08:02)
[2017-10-29] MEDS: INSULIN ASPART 100 UNITS/ML 3 ML PEN SC SCH ×4 (08:04→21:27)
--- NOTE | 2017-10-29 09:53 | Progress Note ---
Subjective Date of Service: Oct 29, 2017. Subjective Pt evaluation today including: conversation w/ patient, chart review, lab review Voiding: dickens catheter in place (patent, draining clear, yellow urine ) 76 yo female with fungal UTI s/p URS. Pt reports she feels well this morning. Denies pain or n/v. Dickens remains in place with amphotericin B bladder irrigation running. She remains on IV Caspofungin as well. Problem List Medical Problems: (1) Pyelonephritis Status: Acute Review of Systems Constitutional: No fever, No chills Respiratory: No shortness of breath Cardiac: No chest pain Abdomen: No pain, No nausea, No vomiting Female : No dysuria, No hematuria Heme: No abnormal bleeding/bruising Objective Vital Signs Date Time Temp Pulse Resp B/P (MAP) Pulse Ox O2 Delivery O2 Flow Rate FiO2 10/29/17 08:00 Room Air 10/29/17 06:50 37.6 82 18 126/71 (89) 94 Room Air 10/29/17 06:18 37.6 10/29/17 00:00 37.2 10/28/17 23:54 Room Air 10/28/17 23:40 37.1 80 18 124/73 (90) 94 Room Air 10/28/17 21:46 38.0 83 128/62 (84) 10/28/17 18:02 37.2 10/28/17 16:00 91 Room Air 10/28/17 15:53 37.6 84 18 106/67 (80) 91 Physical Exam General Appearance: no apparent distress Eyes: normal inspection ENT: hearing grossly normal Neck: no JVD Respiratory/Chest: no respiratory distress, no accessory muscle use Cardiovascular: no JVD Extremities: normal inspection Neurologic/Psychiatric: alert, normal mood/affect, oriented x 3 Skin: normal color Laboratory Results Last 24 Hours Test 10/28/17 12:00 10/28/17 16:48 10/28/17 20:20 10/29/17 05:50 Bedside Glucose 216 mg/dl 255 mg/dl 266 mg/dl White Blood Count 9.03 K/uL Red Blood Count 3.76 M/uL Hemoglobin 10.7 g/dL Hematocrit 32.9 % Mean Corpuscular Volume 87.5 fL Mean Corpuscular Hemoglobin 28.5 pg Mean Corpuscular Hemoglobin Concent 32.5 g/dl Platelet Count 187 K/uL Mean Platelet Volume 10.9 fL Neutrophils (%) (Auto) 48.8 % Lymphocytes (%) (Auto) 35.4 % Monocytes (%) (Auto) 11.5 % Eosinophils (%) (Auto) 3.3 % Basophils (%) (Auto) 0.6 % Neutrophils # (Auto) 4.40 K/uL Lymphocytes # (Auto) 3.20 K/uL Monocytes # (Auto) 1.04 K/uL Eosinophils # (Auto) 0.30 K/uL Basophils # (Auto) 0.05 K/uL RDW Standard Deviation 47.9 fL RDW Coefficient of Variation 14.9 % Immature Granulocyte % (Auto) 0.4 % Immature Granulocyte # (Auto) 0.04 K/uL Sodium Level 137 mmol/L Potassium Level 3.5 mmol/L Chloride Level 106 mmol/L Carbon Dioxide Level 24 mmol/L Anion Gap 7.0 mmol/L Blood Urea Nitrogen 10 mg/dl Creatinine 0.62 mg/dl Est Creatinine Clear Calc Drug Dose 79.0 ml/min Estimated GFR () 101.5 Estimated GFR (Non- 87.6 BUN/Creatinine Ratio 15.6 Random Glucose 140 mg/dl Calcium Level 8.1 mg/dl Total Bilirubin 0.6 mg/dl Aspartate Amino Transf (AST/SGOT) 10 U/L Alanine Aminotransferase (ALT/SGPT) 14 U/L Alkaline Phosphatase 92 U/L Total Protein 6.2 gm/dl Albumin 2.3 gm/dl Globulin 3.9 gm/dl Albumin/Globulin Ratio 0.6 Test 10/29/17 07:46 Bedside Glucose 158 mg/dl Assessment and Plan POD #5 s/p left URS; fungal UTI with fevers Fevers improving. Continue to avoid any surgical intervention unless the pt were to develop severe pain or decompensate. Typically pt's will have amphotericin B bladder irrigation/instillation for 5 days while inpatient. This will complete SaturdayNovember 01. Will defer IV caspofungin management to Dr. Mooney. Appreciate the consult. Will continue to follow along with primary service.
--- NOTE | 2017-10-29 10:05 | Medical Student: [facility] ---
Med Student Progress Note Date of Service Oct 29, 2017. Subjective Pt evaluation today including: conversation w/ patient, physical exam, chart review, lab review, review of studies, review of inpatient medication list Pain: 0 PO Intake: tolerating well Voiding: dickens catheter in place (3-way with amphotericin B infusion, draining orange/yellow) Ms. Odonnell is POD #5 URS and laser lithotripsy complicated by fungal UTI - Patient is feeling much better today and in good spirits, sitting up in chair this am. - Tolerating Amphotericin B bladder infusion and IV caspofungin well. - Cr and WBC remain stable. - Denies abdominal or flank pain, no n/v/d - Tolerating regular diet. Review of Systems Constitutional: No fever, No chills ENT: No hearing loss Respiratory: No cough, No shortness of breath Cardiac: No chest pain Abdomen: No pain, No nausea, No vomiting Female : No dysuria, No urinary frequency, No incontinence Neurologic: No numbness/tingling, No vertigo Heme: No abnormal bleeding/bruising Endo: No fatigue Skin: No rash, No itch Objective Vital Signs Date Time Temp Pulse Resp B/P (MAP) Pulse Ox O2 Delivery O2 Flow Rate FiO2 10/29/17 08:00 Room Air 10/29/17 06:50 37.6 82 18 126/71 (89) 94 Room Air 10/29/17 06:18 37.6 10/29/17 00:00 37.2 10/28/17 23:54 Room Air 10/28/17 23:40 37.1 80 18 124/73 (90) 94 Room Air 10/28/17 21:46 38.0 83 128/62 (84) 10/28/17 18:02 37.2 10/28/17 16:00 91 Room Air 10/28/17 15:53 37.6 84 18 106/67 (80) 91 Physical Exam General Appearance: WD/WN, no apparent distress ENT: hearing grossly normal Neck: no adenopathy Respiratory/Chest: no respiratory distress, no accessory muscle use Cardiovascular: no JVD Abdomen: soft Extremities: normal range of motion, non-tender Neurologic/Psychiatric: no motor/sensory deficits, alert, normal mood/affect, oriented x 3 Skin: warm/dry, no rash Lymphatic: no adenopathy Laboratory Results Last 24 Hours Test 10/28/17 12:00 10/28/17 16:48 10/28/17 20:20 10/29/17 05:50 Bedside Glucose 216 mg/dl 255 mg/dl 266 mg/dl White Blood Count 9.03 K/uL Red Blood Count 3.76 M/uL Hemoglobin 10.7 g/dL Hematocrit 32.9 % Mean Corpuscular Volume 87.5 fL Mean Corpuscular Hemoglobin 28.5 pg Mean Corpuscular Hemoglobin Concent 32.5 g/dl Platelet Count 187 K/uL Mean Platelet Volume 10.9 fL Neutrophils (%) (Auto) 48.8 % Lymphocytes (%) (Auto) 35.4 % Monocytes (%) (Auto) 11.5 % Eosinophils (%) (Auto) 3.3 % Basophils (%) (Auto) 0.6 % Neutrophils # (Auto) 4.40 K/uL Lymphocytes # (Auto) 3.20 K/uL Monocytes # (Auto) 1.04 K/uL Eosinophils # (Auto) 0.30 K/uL Basophils # (Auto) 0.05 K/uL RDW Standard Deviation 47.9 fL RDW Coefficient of Variation 14.9 % Immature Granulocyte % (Auto) 0.4 % Immature Granulocyte # (Auto) 0.04 K/uL Sodium Level 137 mmol/L Potassium Level 3.5 mmol/L Chloride Level 106 mmol/L Carbon Dioxide Level 24 mmol/L Anion Gap 7.0 mmol/L Blood Urea Nitrogen 10 mg/dl Creatinine 0.62 mg/dl Est Creatinine Clear Calc Drug Dose 79.0 ml/min Estimated GFR () 101.5 Estimated GFR (Non- 87.6 BUN/Creatinine Ratio 15.6 Random Glucose 140 mg/dl Calcium Level 8.1 mg/dl Total Bilirubin 0.6 mg/dl Aspartate Amino Transf (AST/SGOT) 10 U/L Alanine Aminotransferase (ALT/SGPT) 14 U/L Alkaline Phosphatase 92 U/L Total Protein 6.2 gm/dl Albumin 2.3 gm/dl Globulin 3.9 gm/dl Albumin/Globulin Ratio 0.6 Test 10/29/17 07:46 Bedside Glucose 158 mg/dl Assessment and Plan Assessment and Plan: A/P POD #5 URS complicated by fungal UTI - Continue Caspofungin IV and Amphotericin B x5 days, should complete on Saturday - Avoid surgical intervention unless patient decompensates, condition worsens or develops worsening pain. - Please call with any concerns - Will continue to follow with primary service and ID. Continued [facility] stay due to: multiple IV medications needed
--- NOTE | 2017-10-29 12:39 | Progress Note ---
Internal Med Progress Note Date of Service: Oct 29, 2017. Provider Documentation: SUBJECTIVE: Seen and examined at bedside States feeling much better Denies chest pain, SOB, dizziness, flank pain, hematuria No other complaints Family at bedside OBJECTIVE: Vital Signs-as noted below Physical Exam: Vitals signs as noted above General Appearance:Moderately built and nourished, no apparent distress Head: normocephalic, Atraumatic Eyes: normal inspection, EOMI, PERRL Neck: supple, Trachea midline Respiratory/Chest: Normal breath sounds, CTA Cardiovascular: S1, S2, No murmur Abdomen/GI:Soft, Non tender, Bowel sounds present Extremities/Musculoskelatal:normal inspection, no edema Neurologic/Psych:AAOX3, grossly no focal neurological deficits Skin: normal color, warm Lab data as noted below. ASSESSMENT & PLAN: Patient is a 76 yr female s/p Cystoscopy, Left Ureteroscopy, Laser Lithotripsy, Stone extraction of left uretal stone removal on 10/24/17 who went home on Diflucan (patient's preop culture 10/07/17 showed lactobacillus species not michelle albicans) and Pyridium and presented with fever Michelle UTI: CT ABD: suggesting of potential low-grade left renal pyelonephritis. No evidence for abscess or collection. Left ureteral stent in good position. Blood culture 10/25/17: no growth to date Continue bladder irrigation with amphotericin Continue IV Caspofungin Appreciate Urology, ID input PICC line placed on 10/28/17 Monitor daily labs while on antifungals Blood culture from 10/29/17: pending Hypokalemia: Resolved Monitor Diarrhea: Improved C.diff. negative Hypertension: Continue lisinopril HLP: continue statins DM II: continue ISS, Lantus A1C:8.5 Monitor BGs DVT px: Lovenox SQ Code Status: Full Code Vital Signs: Date Time Temp Pulse Resp B/P (MAP) Pulse Ox O2 Delivery O2 Flow Rate FiO2 10/29/17 08:00 Room Air 10/29/17 06:50 37.6 82 18 126/71 (89) 94 Room Air 10/29/17 06:18 37.6 10/29/17 00:00 37.2 10/28/17 23:54 Room Air 10/28/17 23:40 37.1 80 18 124/73 (90) 94 Room Air 10/28/17 21:46 38.0 83 128/62 (84) 10/28/17 18:02 37.2 10/28/17 16:00 91 Room Air 10/28/17 15:53 37.6 84 18 106/67 (80) 91 Lab Results: Results Past 24 Hours Test 10/28/17 16:48 10/28/17 20:20 10/29/17 05:50 10/29/17 07:46 Range/Units Bedside Glucose 255 266 158 70-90 mg/dl White Blood Count 9.03 4.8-10.8 K/uL Red Blood Count 3.76 4.2-5.4 M/uL Hemoglobin 10.7 12.0-16.0 g/dL Hematocrit 32.9 37-47 % Mean Corpuscular Volume 87.5 80-100 fL Mean Corpuscular Hemoglobin 28.5 25-34 pg Mean Corpuscular Hemoglobin Concent 32.5 32-36 g/dl Platelet Count 187 130-400 K/uL Mean Platelet Volume 10.9 7.4-10.4 fL Neutrophils (%) (Auto) 48.8 % Lymphocytes (%) (Auto) 35.4 % Monocytes (%) (Auto) 11.5 % Eosinophils (%) (Auto) 3.3 % Basophils (%) (Auto) 0.6 % Neutrophils # (Auto) 4.40 1.4-6.5 K/uL Lymphocytes # (Auto) 3.20 1.2-3.4 K/uL Monocytes # (Auto) 1.04 0.11-0.59 K/uL Eosinophils # (Auto) 0.30 0-0.5 K/uL Basophils # (Auto) 0.05 0-0.2 K/uL RDW Standard Deviation 47.9 36.4-46.3 fL RDW Coefficient of Variation 14.9 11.5-14.5 % Immature Granulocyte % (Auto) 0.4 % Immature Granulocyte # (Auto) 0.04 0.00-0.02 K/uL Sodium Level 137 136-145 mmol/L Potassium Level 3.5 3.5-5.1 mmol/L Chloride Level 106 98-107 mmol/L Carbon Dioxide Level 24 21-32 mmol/L Anion Gap 7.0 3-11 mmol/L Blood Urea Nitrogen 10 7-18 mg/dl Creatinine 0.62 0.60-1.20 mg/dl Est Creatinine Clear Calc Drug Dose 79.0 ml/min Estimated GFR () 101.5 Estimated GFR (Non- 87.6 BUN/Creatinine Ratio 15.6 10-20 Random Glucose 140 70-99 mg/dl Calcium Level 8.1 8.5-10.1 mg/dl Total Bilirubin 0.6 0.2-1 mg/dl Aspartate Amino Transf (AST/SGOT) 10 15-37 U/L Alanine Aminotransferase (ALT/SGPT) 14 12-78 U/L Alkaline Phosphatase 92 45-117 U/L Total Protein 6.2 6.4-8.2 gm/dl Albumin 2.3 3.4-5.0 gm/dl Globulin 3.9 2.5-4.0 gm/dl Albumin/Globulin Ratio 0.6 0.9-2 Test 10/29/17 11:41 Range/Units Bedside Glucose 250 70-90 mg/dl Microbiology Results 10/29/17 Blood Culture, Received Pending 10/29/17 Blood Culture, Received Pending
[2017-10-29] MEDS ORDERED: PHENAZOPYRIDINE HCL 200 MG TAB PO PRN (14:45)
--- NOTE | 2017-10-29 15:09 | Progress Note ---
Subjective Date of Service: Oct 29, 2017. Subjective still with fevers intermittently. blood cultures negative, repeated today and are pending. urine culture with non albicans yeast. tolerating antifungals. no overnight events. Problem List Medical Problems: (1) Pyelonephritis Status: Acute Objective Vital Signs Date Time Temp Pulse Resp B/P (MAP) Pulse Ox O2 Delivery O2 Flow Rate FiO2 10/29/17 08:00 Room Air 10/29/17 06:50 37.6 82 18 126/71 (89) 94 Room Air 10/29/17 06:18 37.6 10/29/17 00:00 37.2 10/28/17 23:54 Room Air 10/28/17 23:40 37.1 80 18 124/73 (90) 94 Room Air 10/28/17 21:46 38.0 83 128/62 (84) 10/28/17 18:02 37.2 10/28/17 16:00 91 Room Air 10/28/17 15:53 37.6 84 18 106/67 (80) 91 Laboratory Results Item Value Date Time Urine Culture - Final Complete 10/25/17 1807 Urine , Clean Catch Yeast Not Michelle Albicans Blood Culture - Preliminary Resulted 10/25/17 1455 Blood NO GROWTH TO DATE. Blood Culture - Preliminary Resulted 10/25/17 1445 Blood NO GROWTH TO DATE. Last 24 Hours Test 10/28/17 16:48 10/28/17 20:20 10/29/17 05:50 10/29/17 07:46 Bedside Glucose 255 mg/dl 266 mg/dl 158 mg/dl White Blood Count 9.03 K/uL Red Blood Count 3.76 M/uL Hemoglobin 10.7 g/dL Hematocrit 32.9 % Mean Corpuscular Volume 87.5 fL Mean Corpuscular Hemoglobin 28.5 pg Mean Corpuscular Hemoglobin Concent 32.5 g/dl Platelet Count 187 K/uL Mean Platelet Volume 10.9 fL Neutrophils (%) (Auto) 48.8 % Lymphocytes (%) (Auto) 35.4 % Monocytes (%) (Auto) 11.5 % Eosinophils (%) (Auto) 3.3 % Basophils (%) (Auto) 0.6 % Neutrophils # (Auto) 4.40 K/uL Lymphocytes # (Auto) 3.20 K/uL Monocytes # (Auto) 1.04 K/uL Eosinophils # (Auto) 0.30 K/uL Basophils # (Auto) 0.05 K/uL RDW Standard Deviation 47.9 fL RDW Coefficient of Variation 14.9 % Immature Granulocyte % (Auto) 0.4 % Immature Granulocyte # (Auto) 0.04 K/uL Sodium Level 137 mmol/L Potassium Level 3.5 mmol/L Chloride Level 106 mmol/L Carbon Dioxide Level 24 mmol/L Anion Gap 7.0 mmol/L Blood Urea Nitrogen 10 mg/dl Creatinine 0.62 mg/dl Est Creatinine Clear Calc Drug Dose 79.0 ml/min Estimated GFR () 101.5 Estimated GFR (Non- 87.6 BUN/Creatinine Ratio 15.6 Random Glucose 140 mg/dl Calcium Level 8.1 mg/dl Total Bilirubin 0.6 mg/dl Aspartate Amino Transf (AST/SGOT) 10 U/L Alanine Aminotransferase (ALT/SGPT) 14 U/L Alkaline Phosphatase 92 U/L Total Protein 6.2 gm/dl Albumin 2.3 gm/dl Globulin 3.9 gm/dl Albumin/Globulin Ratio 0.6 Test 10/29/17 11:41 Bedside Glucose 250 mg/dl Assessment and Plan (1) Pyelonephritis Assessment & Plan: continue current therapy. follow blood cultures. Continued [facility] stay due to: multiple IV medications needed
[2017-10-29] MEDS ORDERED: INSULIN GLARGINE SOLOSTAR 100 UNITS/ML 3 ML PEN SC ONE (20:55)
[2017-10-29] MEDS ORDERED: INSULIN GLARGINE SOLOSTAR 100 UNITS/ML 3 ML PEN SC SCH (21:00)
[2017-10-29] MEDS: METOPROLOL SUCC 25MG EXT REL TAB PO SCH (21:24)
[2017-10-29] MEDS: ATORVASTATIN 10 MG TAB PO SCH (21:24)
[2017-10-29] MEDS: LOPERAMIDE HCL 2 MG CAP PO PRN (21:32)
[2017-10-29] MEDS: ACETAMINOPHEN 325 MG TAB PO PRN (21:32)
[2017-10-30 05:45] VITALS: TEMP 37.1
[2017-10-30 06:15] LABS: HEMATOCRIT 29.5 % (37-47); HEMOGLOBIN 9.7 g/dL (12.0-16.0); MEAN CELL VOLUME 87.3 fL (80-100); MEAN CORPUSCULAR HEMOGLOBIN 28.7 pg (25-34); MEAN CORPUSCULAR HGB CONC 32.9 g/dl (32-36); MEAN PLATELET VOLUME 11.2 fL (7.4-10.4); PLATELET COUNT 185 K/uL (130-400); RED CELL DISTRIBUTION WIDTH CV 14.9 % (11.5-14.5); RED CELL DISTRIBUTION WIDTH SD 48.1 fL (36.4-46.3); WHITE BLOOD COUNT 7.69 K/uL (4.8-10.8)
[2017-10-30 06:49] LABS: ALBUMIN 2.1 gm/dl (3.4-5.0); CALCIUM 8.1 mg/dl (8.5-10.1); CREATININE 0.53 mg/dl (0.60-1.20); POTASSIUM 3.3 mmol/L (3.5-5.1)
[2017-10-30 06:52] LABS: TOTAL PROTEIN 5.8 gm/dl (6.4-8.2)
[2017-10-30 07:31] VITALS: BP 108/66; PULSE 74; TEMP 37.2; O2SAT 95
[2017-10-30] MEDS: CASPOFUNGIN INJ 50 MG in SODIUM CHLORIDE 0.9% 250ML 250 ML IV SCH (07:44)
[2017-10-30] MEDS: ENOXAPARIN 40 MG/0.4 ML SYR SQ SCH (07:45)
[2017-10-30] MEDS: TAMSULOSIN HCL 0.4 MG CAP PO SCH (07:45)
[2017-10-30] MEDS: LISINOPRIL 5 MG TAB PO SCH (07:45)
[2017-10-30] MEDS: STERILE WATER IR SCH ×2 (07:58)
[2017-10-30] MEDS: AMPHOTERICIN B IRRIGATION IR SCH ×2 (07:58)
[2017-10-30] MEDS: INSULIN ASPART 100 UNITS/ML 3 ML PEN SC SCH ×4 (08:54→21:13)
--- NOTE | 2017-10-30 09:04 | Progress Note ---
Subjective Date of Service: Oct 30, 2017. Subjective Pt evaluation today including: conversation w/ patient, chart review, lab review Voiding: dickens catheter in place (patent, draining clear, yellow/orange urine with amphotericin B irrigation running ) Pt reports fevers yesterday and feeling weak. Noted to have a fever of 38C last evening. Afebrile this morning. Denies pain. Denies n/v. Continues Amphotericin B bladder irrigation and IV Caspofungin. Blood cultures repeated this AM. Preliminarily blood cultures from - noted to be negative. Problem List Medical Problems: (1) Pyelonephritis Status: Acute Review of Systems Constitutional: No fever, No chills Respiratory: No shortness of breath Cardiac: No chest pain Abdomen: No pain, No nausea Female : No dysuria, No hematuria Heme: No abnormal bleeding/bruising Objective Vital Signs Date Time Temp Pulse Resp B/P (MAP) Pulse Ox O2 Delivery O2 Flow Rate FiO2 10/30/17 07:31 37.2 74 16 108/66 (80) 95 Room Air 10/30/17 05:45 37.1 10/30/17 00:00 Room Air 10/29/17 22:34 38.0 83 18 140/70 (93) 92 10/29/17 22:26 38.1 10/29/17 21:34 38.3 10/29/17 16:00 95 Room Air 10/29/17 15:16 37.3 97 18 130/88 (102) 95 Room Air Physical Exam General Appearance: no apparent distress Eyes: normal inspection ENT: hearing grossly normal Neck: no JVD Respiratory/Chest: no respiratory distress, no accessory muscle use Cardiovascular: no JVD Extremities: normal inspection Neurologic/Psychiatric: alert, normal mood/affect, oriented x 3 Skin: normal color Laboratory Results Last 24 Hours Test 10/29/17 11:41 10/29/17 16:43 10/29/17 20:31 10/30/17 06:04 Bedside Glucose 250 mg/dl 263 mg/dl 311 mg/dl White Blood Count 7.69 K/uL Red Blood Count 3.38 M/uL Hemoglobin 9.7 g/dL Hematocrit 29.5 % Mean Corpuscular Volume 87.3 fL Mean Corpuscular Hemoglobin 28.7 pg Mean Corpuscular Hemoglobin Concent 32.9 g/dl RDW Standard Deviation 48.1 fL RDW Coefficient of Variation 14.9 % Platelet Count 185 K/uL Mean Platelet Volume 11.2 fL Sodium Level 137 mmol/L Potassium Level 3.3 mmol/L Chloride Level 106 mmol/L Carbon Dioxide Level 25 mmol/L Anion Gap 7.0 mmol/L Blood Urea Nitrogen 11 mg/dl Creatinine 0.53 mg/dl Est Creatinine Clear Calc Drug Dose 92.4 ml/min Estimated GFR () 106.9 Estimated GFR (Non- 92.2 BUN/Creatinine Ratio 21.0 Random Glucose 116 mg/dl Calcium Level 8.1 mg/dl Total Bilirubin 0.5 mg/dl Aspartate Amino Transf (AST/SGOT) 11 U/L Alanine Aminotransferase (ALT/SGPT) 14 U/L Alkaline Phosphatase 97 U/L Total Protein 5.8 gm/dl Albumin 2.1 gm/dl Globulin 3.7 gm/dl Albumin/Globulin Ratio 0.6 Test 10/30/17 07:53 Bedside Glucose 122 mg/dl Assessment and Plan POD #6 s/p left URS; fungal UTI with fevers Will repeat a UC&S given fevers and weakness. Will hold off on any repeat imaging as she denies any pain this morning and renal function is stable. Continue amphotericin B bladder irrigation/instillation for 5 days while inpatient. This will complete SaturdayNovember 01. Will defer IV caspofungin management to Dr. Mooney. Appreciate the consult. Will continue to follow along with primary service. Continued [facility] stay due to: multiple IV medications needed
--- NOTE | 2017-10-30 09:13 | Medical Student: [facility] ---
Med Student Progress Note Date of Service Oct 30, 2017. Subjective Pt evaluation today including: conversation w/ patient, physical exam, chart review, lab review, review of studies, review of inpatient medication list Pain: 0 PO Intake: good Voiding: dickens catheter in place (3-way catheter with amphotericin B infusion, draining yellow/orange) 76 yo female with fungal UTI s/p URS. Spiking fevers yesterday and feeling generally unwell. States she feels a little better today but still feeling weak. Afebrile, WBC stable this AM Cr stable. Denies N/V/D today. Had one bout of diarrhea yesterday, given immodium x1. Tolerating regular diet well, eating all meals. Daughter at bedside. Review of Systems Constitutional: + fever (fevers yesterday afternoon- blood cultures repeated by ID), + weakness (states she feels weaker and more run-down today ), + fatigue , No chills Respiratory: No cough, No shortness of breath Abdomen: No pain, No nausea, No vomiting, No diarrhea (episode x1 yesterday - given immodium with good yield) Female : + see HPI Neurologic: + weakness Endo: No fatigue Skin: No rash Objective Vital Signs Date Time Temp Pulse Resp B/P (MAP) Pulse Ox O2 Delivery O2 Flow Rate FiO2 10/30/17 07:31 37.2 74 16 108/66 (80) 95 Room Air 10/30/17 05:45 37.1 10/30/17 00:00 Room Air 10/29/17 22:34 38.0 83 18 140/70 (93) 92 10/29/17 22:26 38.1 10/29/17 21:34 38.3 10/29/17 16:00 95 Room Air 10/29/17 15:16 37.3 97 18 130/88 (102) 95 Room Air Physical Exam General Appearance: WD/WN, no apparent distress ENT: hearing grossly normal Neck: no JVD Respiratory/Chest: no respiratory distress, no accessory muscle use Cardiovascular: no JVD Neurologic/Psychiatric: alert, normal mood/affect, oriented x 3 Skin: warm/dry, no rash Laboratory Results Last 24 Hours Test 10/29/17 11:41 10/29/17 16:43 10/29/17 20:31 10/30/17 06:04 Bedside Glucose 250 mg/dl 263 mg/dl 311 mg/dl White Blood Count 7.69 K/uL Red Blood Count 3.38 M/uL Hemoglobin 9.7 g/dL Hematocrit 29.5 % Mean Corpuscular Volume 87.3 fL Mean Corpuscular Hemoglobin 28.7 pg Mean Corpuscular Hemoglobin Concent 32.9 g/dl RDW Standard Deviation 48.1 fL RDW Coefficient of Variation 14.9 % Platelet Count 185 K/uL Mean Platelet Volume 11.2 fL Sodium Level 137 mmol/L Potassium Level 3.3 mmol/L Chloride Level 106 mmol/L Carbon Dioxide Level 25 mmol/L Anion Gap 7.0 mmol/L Blood Urea Nitrogen 11 mg/dl Creatinine 0.53 mg/dl Est Creatinine Clear Calc Drug Dose 92.4 ml/min Estimated GFR () 106.9 Estimated GFR (Non- 92.2 BUN/Creatinine Ratio 21.0 Random Glucose 116 mg/dl Calcium Level 8.1 mg/dl Total Bilirubin 0.5 mg/dl Aspartate Amino Transf (AST/SGOT) 11 U/L Alanine Aminotransferase (ALT/SGPT) 14 U/L Alkaline Phosphatase 97 U/L Total Protein 5.8 gm/dl Albumin 2.1 gm/dl Globulin 3.7 gm/dl Albumin/Globulin Ratio 0.6 Test 10/30/17 07:53 Bedside Glucose 122 mg/dl Assessment and Plan Assessment and Plan: A/P: 76 yo female with fungal UTI s/p URS Spiking fevers yesterday, BC X2 ordered by ID. Will recheck Urine C&S. Feeling generally weaker today, encourage increased PO intake and ambulation in halls TID. Daughter at bedside, aware and agreeable of plan. Tolerating regimen well otherwise, will continue to monitor with ID and primary service. Continued [facility] stay due to: multiple IV medications needed
--- NOTE | 2017-10-30 11:15 | Progress Note ---
Subjective Date of Service: Oct 30, 2017. Subjective Pt evaluation today including: conversation w/ patient, physical exam, chart review, lab review pt seen in followup, states she is feeling much better today. OOB to chair on my exam, dickens remains. remains on caspo and ampho bladder irrigation. Fever overnight, tmax 38.3. repeat blood and urine cultures pending. denies abd pain. no n/v/d, sob, cough, cp. all remaining ros reviewed and are negative. Problem List Medical Problems: (1) Pyelonephritis Status: Acute Objective Vital Signs Date Time Temp Pulse Resp B/P (MAP) Pulse Ox O2 Delivery O2 Flow Rate FiO2 10/30/17 08:00 Room Air 10/30/17 07:31 37.2 74 16 108/66 (80) 95 Room Air 10/30/17 05:45 37.1 10/30/17 00:00 Room Air 10/29/17 22:34 38.0 83 18 140/70 (93) 92 10/29/17 22:26 38.1 10/29/17 21:34 38.3 10/29/17 16:00 95 Room Air 10/29/17 15:16 37.3 97 18 130/88 (102) 95 Room Air Physical Exam General Appearance: WD/WN, no apparent distress Eyes: normal inspection, EOMI Neck: supple Respiratory/Chest: lungs clear, normal breath sounds, no respiratory distress Cardiovascular: regular rate, rhythm, no edema Abdomen: non tender, soft Extremities: non-tender, no pedal edema Neurologic/Psychiatric: alert, oriented x 3 Skin: normal color Laboratory Results Item Value Date Time Urine Culture - Final Complete 10/25/17 1807 Urine , Clean Catch Yeast Not Michelle Albicans Blood Culture - Preliminary Resulted 10/25/17 1455 Blood NO GROWTH TO DATE. Blood Culture - Preliminary Resulted 10/25/17 1445 Blood NO GROWTH TO DATE. Last 24 Hours Test 10/29/17 11:41 10/29/17 16:43 10/29/17 20:31 10/30/17 06:04 Bedside Glucose 250 mg/dl 263 mg/dl 311 mg/dl White Blood Count 7.69 K/uL Red Blood Count 3.38 M/uL Hemoglobin 9.7 g/dL Hematocrit 29.5 % Mean Corpuscular Volume 87.3 fL Mean Corpuscular Hemoglobin 28.7 pg Mean Corpuscular Hemoglobin Concent 32.9 g/dl RDW Standard Deviation 48.1 fL RDW Coefficient of Variation 14.9 % Platelet Count 185 K/uL Mean Platelet Volume 11.2 fL Sodium Level 137 mmol/L Potassium Level 3.3 mmol/L Chloride Level 106 mmol/L Carbon Dioxide Level 25 mmol/L Anion Gap 7.0 mmol/L Blood Urea Nitrogen 11 mg/dl Creatinine 0.53 mg/dl Est Creatinine Clear Calc Drug Dose 92.4 ml/min Estimated GFR () 106.9 Estimated GFR (Non- 92.2 BUN/Creatinine Ratio 21.0 Random Glucose 116 mg/dl Calcium Level 8.1 mg/dl Total Bilirubin 0.5 mg/dl Aspartate Amino Transf (AST/SGOT) 11 U/L Alanine Aminotransferase (ALT/SGPT) 14 U/L Alkaline Phosphatase 97 U/L Total Protein 5.8 gm/dl Albumin 2.1 gm/dl Globulin 3.7 gm/dl Albumin/Globulin Ratio 0.6 Test 10/30/17 07:53 Bedside Glucose 122 mg/dl Assessment and Plan (1) Pyelonephritis Assessment & Plan: continue current therapy. follow blood cultures. Continued [facility] stay due to: multiple IV medications needed
[2017-10-30] MEDS ORDERED: POTASSIUM CHLORIDE 20 MEQ TABCR PO STA (14:48)
--- NOTE | 2017-10-30 14:54 | Progress Note ---
Internal Med Progress Note Date of Service: Oct 30, 2017. Provider Documentation: SUBJECTIVE: Seen and examined at bedside Fever resolved Doing better today Denies chest pain, SOB, dizziness, flank pain, hematuria No other complaints Diarrhea improving OBJECTIVE: Vital Signs-as noted below Physical Exam: Vitals signs as noted above General Appearance:Moderately built and nourished, no apparent distress Head: normocephalic, Atraumatic Eyes: normal inspection, EOMI, PERRL Neck: supple, Trachea midline Respiratory/Chest: Normal breath sounds, CTA Cardiovascular: S1, S2, No murmur Abdomen/GI:Soft, Non tender, Bowel sounds present Extremities/Musculoskelatal:normal inspection, no edema Neurologic/Psych:AAOX3, grossly no focal neurological deficits Skin: normal color, warm Lab data as noted below. ASSESSMENT & PLAN: Patient is a 76 yr female s/p Cystoscopy, Left Ureteroscopy, Laser Lithotripsy, Stone extraction of left uretal stone removal on 10/24/17 who went home on Diflucan (patient's preop culture 10/07/17 showed lactobacillus species not michelle albicans) and Pyridium and presented with fever Michelle UTI: CT ABD: suggesting of potential low-grade left renal pyelonephritis. No evidence for abscess or collection. Left ureteral stent in good position. Blood culture 10/25/17: no growth to date Continue bladder irrigation with amphotericin, to complete on 11/01/17 Continue IV Caspofungin PICC line placed on 10/28/17 Monitor daily labs while on antifungals Blood culture from 10/29/17: pending Urine Culture: 10/30/17: pending Appreciate Urology, ID Input Hypokalemia: Replace and Monitor Check Mag levels Diarrhea: Improved C.diff. negative Hypertension: Continue lisinopril HLP: continue statins DM II: continue ISS, Lantus A1C:8.5 Monitor BGs DVT px: Lovenox SQ Code Status: Full Code Vital Signs: Date Time Temp Pulse Resp B/P (MAP) Pulse Ox O2 Delivery O2 Flow Rate FiO2 10/30/17 08:00 Room Air 10/30/17 07:31 37.2 74 16 108/66 (80) 95 Room Air 10/30/17 05:45 37.1 10/30/17 00:00 Room Air 10/29/17 22:34 38.0 83 18 140/70 (93) 92 10/29/17 22:26 38.1 10/29/17 21:34 38.3 10/29/17 16:00 95 Room Air 10/29/17 15:16 37.3 97 18 130/88 (102) 95 Room Air Lab Results: Results Past 24 Hours Test 10/29/17 16:43 10/29/17 20:31 10/30/17 06:04 10/30/17 07:53 Range/Units Bedside Glucose 263 311 122 70-90 mg/dl White Blood Count 7.69 4.8-10.8 K/uL Red Blood Count 3.38 4.2-5.4 M/uL Hemoglobin 9.7 12.0-16.0 g/dL Hematocrit 29.5 37-47 % Mean Corpuscular Volume 87.3 80-100 fL Mean Corpuscular Hemoglobin 28.7 25-34 pg Mean Corpuscular Hemoglobin Concent 32.9 32-36 g/dl RDW Standard Deviation 48.1 36.4-46.3 fL RDW Coefficient of Variation 14.9 11.5-14.5 % Platelet Count 185 130-400 K/uL Mean Platelet Volume 11.2 7.4-10.4 fL Sodium Level 137 136-145 mmol/L Potassium Level 3.3 3.5-5.1 mmol/L Chloride Level 106 98-107 mmol/L Carbon Dioxide Level 25 21-32 mmol/L Anion Gap 7.0 3-11 mmol/L Blood Urea Nitrogen 11 7-18 mg/dl Creatinine 0.53 0.60-1.20 mg/dl Est Creatinine Clear Calc Drug Dose 92.4 ml/min Estimated GFR () 106.9 Estimated GFR (Non- 92.2 BUN/Creatinine Ratio 21.0 10-20 Random Glucose 116 70-99 mg/dl Calcium Level 8.1 8.5-10.1 mg/dl Total Bilirubin 0.5 0.2-1 mg/dl Aspartate Amino Transf (AST/SGOT) 11 15-37 U/L Alanine Aminotransferase (ALT/SGPT) 14 12-78 U/L Alkaline Phosphatase 97 45-117 U/L Total Protein 5.8 6.4-8.2 gm/dl Albumin 2.1 3.4-5.0 gm/dl Globulin 3.7 2.5-4.0 gm/dl Albumin/Globulin Ratio 0.6 0.9-2 Test 10/30/17 11:50 Range/Units Bedside Glucose 214 70-90 mg/dl Microbiology Results 10/30/17 Urine Culture, Received Pending
[2017-10-30 15:22] VITALS: BP 133/75; PULSE 90; TEMP 37.2; O2SAT 91
[2017-10-30 16:00] VITALS: O2SAT 91
[2017-10-30] MEDS: METOPROLOL SUCC 25MG EXT REL TAB PO SCH (21:10)
[2017-10-30] MEDS: ATORVASTATIN 10 MG TAB PO SCH (21:10)
[2017-10-30] MEDS: INSULIN GLARGINE SOLOSTAR 100 UNITS/ML 3 ML PEN SC SCH (21:12)
[2017-10-30 22:30] VITALS: BP 124/74; PULSE 79; TEMP 37.4; O2SAT 92
[2017-10-31 06:13] LABS: HEMATOCRIT 30.5 % (37-47); HEMOGLOBIN 9.9 g/dL (12.0-16.0)
[2017-10-31 06:46] LABS: CALCIUM 8.7 mg/dl (8.5-10.1); CREATININE 0.47 mg/dl (0.60-1.20); POTASSIUM 3.5 mmol/L (3.5-5.1)
[2017-10-31 07:55] VITALS: BP 111/69; PULSE 77; TEMP 37.2; O2SAT 94
[2017-10-31] MEDS: STERILE WATER IR SCH ×2 (08:06)
[2017-10-31] MEDS: AMPHOTERICIN B IRRIGATION IR SCH ×2 (08:06)
[2017-10-31] MEDS: CASPOFUNGIN INJ 50 MG in SODIUM CHLORIDE 0.9% 250ML 250 ML IV SCH (08:06)
[2017-10-31] MEDS: LISINOPRIL 5 MG TAB PO SCH (08:12)
[2017-10-31] MEDS: TAMSULOSIN HCL 0.4 MG CAP PO SCH (08:12)
[2017-10-31] MEDS: ENOXAPARIN 40 MG/0.4 ML SYR SQ SCH (08:12)
[2017-10-31] MEDS: INSULIN ASPART 100 UNITS/ML 3 ML PEN SC SCH ×4 (08:18→20:38)
--- NOTE | 2017-10-31 08:49 | Progress Note ---
Subjective Date of Service: Oct 31, 2017. Subjective Pt evaluation today including: conversation w/ patient, chart review, lab review Voiding: dickens catheter in place (patent, draining clear, yellow urine ) 76 yo female with fungal UTI s/p left URS. Pt has been afebrile for 24hrs. On toilet having BM this morning. Denies any diarrhea. She states her weakness is improving. Ambulating the hallways without difficulty. Denies pain. Denies n/v. Continues amphotericin B bladder irrigation and IV Caspofungin. Problem List Medical Problems: (1) Pyelonephritis Status: Acute Review of Systems Constitutional: No fever, No chills Respiratory: No shortness of breath Cardiac: No chest pain Abdomen: No pain, No nausea, No vomiting Female : No dysuria, No hematuria Heme: No abnormal bleeding/bruising Objective Vital Signs Date Time Temp Pulse Resp B/P (MAP) Pulse Ox O2 Delivery O2 Flow Rate FiO2 10/31/17 07:55 37.2 77 16 111/69 (83) 94 Room Air 10/31/17 00:00 Room Air 10/30/17 22:30 37.4 79 18 124/74 (91) 92 Room Air 10/30/17 16:00 91 Room Air 10/30/17 15:22 37.2 90 17 133/75 (94) 91 Physical Exam General Appearance: no apparent distress Eyes: normal inspection ENT: hearing grossly normal Neck: no JVD Respiratory/Chest: no respiratory distress, no accessory muscle use Cardiovascular: no JVD Extremities: normal inspection Neurologic/Psychiatric: alert, normal mood/affect, oriented x 3 Skin: normal color Laboratory Results Last 24 Hours Test 10/30/17 11:50 10/30/17 16:27 10/30/17 20:23 10/31/17 05:52 Bedside Glucose 214 mg/dl 168 mg/dl 208 mg/dl Hemoglobin 9.9 g/dL Hematocrit 30.5 % Sodium Level 137 mmol/L Potassium Level 3.5 mmol/L Chloride Level 105 mmol/L Carbon Dioxide Level 27 mmol/L Anion Gap 5.0 mmol/L Blood Urea Nitrogen 10 mg/dl Creatinine 0.47 mg/dl Est Creatinine Clear Calc Drug Dose 104.2 ml/min Estimated GFR () 111.2 Estimated GFR (Non- 95.9 BUN/Creatinine Ratio 21.3 Random Glucose 71 mg/dl Calcium Level 8.7 mg/dl Magnesium Level 1.4 mg/dl Test 10/31/17 07:38 Bedside Glucose 134 mg/dl Assessment and Plan POD #7 s/p left URS; fungal UTI with fevers AFVSS. Repeat UC&S pending. Will hold off on any repeat imaging as she denies any pain this morning and renal function is stable. Continue amphotericin B bladder irrigation/instillation for 5 days while inpatient. This will complete SaturdayNovember 01. Will defer IV caspofungin management to Dr. Mooney. Appreciate the consult. Hopeful for d/c home tomorrow. Will continue to follow along with primary service. Continued [facility] stay due to: multiple IV medications needed
[2017-10-31] MEDS ORDERED: MAGNESIUM SULFATE 1GM / D5W 100 ML IV ONE (11:45)
--- NOTE | 2017-10-31 14:23 | Progress Note ---
Subjective Date of Service: Oct 31, 2017. Subjective Pt evaluation today including: conversation w/ patient, conversation w/ family , physical exam, chart review, lab review pt seen in followup, doing well. much improved. afebrile. s/p picc line. for d/ c in am. no abd pain, no n/v/d. all remaining ros reviewed and are negative. blood cultures remain negative, repeat urine culture negative as well. Problem List Medical Problems: (1) Pyelonephritis Status: Acute Objective Vital Signs Date Time Temp Pulse Resp B/P (MAP) Pulse Ox O2 Delivery O2 Flow Rate FiO2 10/31/17 08:30 Room Air 10/31/17 07:55 37.2 77 16 111/69 (83) 94 Room Air 10/31/17 00:00 Room Air 10/30/17 22:30 37.4 79 18 124/74 (91) 92 Room Air 10/30/17 16:00 91 Room Air 10/30/17 15:22 37.2 90 17 133/75 (94) 91 Physical Exam General Appearance: WD/WN, no apparent distress Eyes: normal inspection, EOMI Neck: supple Respiratory/Chest: lungs clear, normal breath sounds, no respiratory distress Cardiovascular: regular rate, rhythm, no edema Abdomen: non tender, soft Extremities: non-tender, no pedal edema Neurologic/Psychiatric: alert, oriented x 3 Skin: normal color Laboratory Results Item Value Date Time Blood Culture - Preliminary Resulted 10/29/17 0550 Blood NO GROWTH TO DATE. Blood Culture - Preliminary Resulted 10/29/17 0506 Blood NO GROWTH TO DATE. Urine Culture - Final Complete 10/25/17 1807 Urine , Clean Catch Yeast Not Michelle Albicans Blood Culture - Final Complete 10/25/17 1455 Blood NO GROWTH Blood Culture - Final Complete 10/25/17 1445 Blood NO GROWTH Urine Culture - Preliminary Resulted 10/30/17 1025 Urine,Catheterized NO GROWTH - LESS THAN 1,000 COLONIES/... Last 24 Hours Test 10/30/17 16:27 10/30/17 20:23 10/31/17 05:52 10/31/17 07:38 Bedside Glucose 168 mg/dl 208 mg/dl 134 mg/dl Hemoglobin 9.9 g/dL Hematocrit 30.5 % Sodium Level 137 mmol/L Potassium Level 3.5 mmol/L Chloride Level 105 mmol/L Carbon Dioxide Level 27 mmol/L Anion Gap 5.0 mmol/L Blood Urea Nitrogen 10 mg/dl Creatinine 0.47 mg/dl Est Creatinine Clear Calc Drug Dose 104.2 ml/min Estimated GFR () 111.2 Estimated GFR (Non- 95.9 BUN/Creatinine Ratio 21.3 Random Glucose 71 mg/dl Calcium Level 8.7 mg/dl Magnesium Level 1.4 mg/dl Test 10/31/17 11:56 Bedside Glucose 136 mg/dl Assessment and Plan (1) Pyelonephritis Assessment & Plan: for d/c in am, will need 10 more days caspo. ok for d/c when otherwise stable. Continued [facility] stay due to: multiple IV medications needed
--- NOTE | 2017-10-31 14:38 | Progress Note ---
Internal Med Progress Note Date of Service: Oct 31, 2017. Provider Documentation: SUBJECTIVE: Seen and examined at bedside Doing well today No new complaints No recurrence of Fever Denies chest pain, SOB, dizziness, flank pain, hematuria Family at bedside OBJECTIVE: Vital Signs-as noted below Physical Exam: Vitals signs as noted above General Appearance:Moderately built and nourished, no apparent distress Head: normocephalic, Atraumatic Eyes: normal inspection, EOMI, PERRL Neck: supple, Trachea midline Respiratory/Chest: Normal breath sounds, CTA Cardiovascular: S1, S2, No murmur Abdomen/GI:Soft, Non tender, Bowel sounds present Extremities/Musculoskelatal:normal inspection, no edema Neurologic/Psych:AAOX3, grossly no focal neurological deficits Skin: normal color, warm Lab data as noted below. ASSESSMENT & PLAN: Patient is a 76 yr female s/p Cystoscopy, Left Ureteroscopy, Laser Lithotripsy, Stone extraction of left uretal stone removal on 10/24/17 who went home on Diflucan (patient's preop culture 10/07/17 showed lactobacillus species not michelle albicans) and Pyridium and presented with fever Michelle UTI: CT ABD: suggesting of potential low-grade left renal pyelonephritis. No evidence for abscess or collection. Left ureteral stent in good position. Blood culture 10/25/17: no growth to date Continue bladder irrigation with amphotericin, to complete tomorrow:11/01/17 Continue IV Caspofungin; Needs 10 more days of therapy PICC line placed on 10/28/17 Monitor daily labs while on antifungals Blood culture from 10/29/17: No growth Urine Culture: 10/30/17: No growth Appreciate Urology, ID Input Hypokalemia/Hypomagnesemia: Replace and Monitor Diarrhea: C.diff. negative Resolved Hypertension: Continue lisinopril HLP: continue statins DM II: continue ISS, Lantus A1C:8.5 Monitor BGs DVT px: Lovenox SQ Code Status: Full Code Disposition: Likely discharge tomorrow if stable Vital Signs: Date Time Temp Pulse Resp B/P (MAP) Pulse Ox O2 Delivery O2 Flow Rate FiO2 10/31/17 08:30 Room Air 10/31/17 07:55 37.2 77 16 111/69 (83) 94 Room Air 10/31/17 00:00 Room Air 10/30/17 22:30 37.4 79 18 124/74 (91) 92 Room Air 10/30/17 16:00 91 Room Air 10/30/17 15:22 37.2 90 17 133/75 (94) 91 Lab Results: Results Past 24 Hours Test 10/30/17 16:27 10/30/17 20:23 10/31/17 05:52 10/31/17 07:38 Range/Units Bedside Glucose 168 208 134 70-90 mg/dl Hemoglobin 9.9 12.0-16.0 g/dL Hematocrit 30.5 37-47 % Sodium Level 137 136-145 mmol/L Potassium Level 3.5 3.5-5.1 mmol/L Chloride Level 105 98-107 mmol/L Carbon Dioxide Level 27 21-32 mmol/L Anion Gap 5.0 3-11 mmol/L Blood Urea Nitrogen 10 7-18 mg/dl Creatinine 0.47 0.60-1.20 mg/dl Est Creatinine Clear Calc Drug Dose 104.2 ml/min Estimated GFR () 111.2 Estimated GFR (Non- 95.9 BUN/Creatinine Ratio 21.3 10-20 Random Glucose 71 70-99 mg/dl Calcium Level 8.7 8.5-10.1 mg/dl Magnesium Level 1.4 1.8-2.4 mg/dl Test 10/31/17 11:56 Range/Units Bedside Glucose 136 70-90 mg/dl
[2017-10-31 15:53] VITALS: BP 128/78; PULSE 73; TEMP 36.7; O2SAT 93
[2017-10-31] MEDS: ATORVASTATIN 10 MG TAB PO SCH (20:32)
[2017-10-31] MEDS: METOPROLOL SUCC 25MG EXT REL TAB PO SCH (20:33)
[2017-10-31] MEDS: INSULIN GLARGINE SOLOSTAR 100 UNITS/ML 3 ML PEN SC SCH (20:39)
[2017-10-31 23:47] VITALS: BP 128/75; PULSE 75; TEMP 36.7; O2SAT 92
[2017-11-01 06:34] LABS: HEMATOCRIT 33.2 % (37-47); HEMOGLOBIN 10.7 g/dL (12.0-16.0); MEAN CELL VOLUME 88.1 fL (80-100); MEAN CORPUSCULAR HEMOGLOBIN 28.4 pg (25-34); MEAN CORPUSCULAR HGB CONC 32.2 g/dl (32-36); MEAN PLATELET VOLUME 10.6 fL (7.4-10.4); PLATELET COUNT 321 K/uL (130-400); RED CELL DISTRIBUTION WIDTH CV 14.9 % (11.5-14.5); RED CELL DISTRIBUTION WIDTH SD 48.2 fL (36.4-46.3); WHITE BLOOD COUNT 9.18 K/uL (4.8-10.8)
[2017-11-01 06:45] LABS: CALCIUM 8.9 mg/dl (8.5-10.1); CREATININE 0.52 mg/dl (0.60-1.20); POTASSIUM 3.9 mmol/L (3.5-5.1)
[2017-11-01 07:52] VITALS: BP 123/72; PULSE 77; TEMP 37.2; O2SAT 95
[2017-11-01] MEDS: ENOXAPARIN 40 MG/0.4 ML SYR SQ SCH (08:00)
[2017-11-01] MEDS: STERILE WATER IR SCH ×2 (08:00)
[2017-11-01] MEDS: AMPHOTERICIN B IRRIGATION IR SCH ×2 (08:00)
[2017-11-01] MEDS: CASPOFUNGIN INJ 50 MG in SODIUM CHLORIDE 0.9% 250ML 250 ML IV SCH (08:18)
[2017-11-01] MEDS: TAMSULOSIN HCL 0.4 MG CAP PO SCH (08:19)
[2017-11-01] MEDS: LISINOPRIL 5 MG TAB PO SCH (08:19)
[2017-11-01] MEDS: INSULIN ASPART 100 UNITS/ML 3 ML PEN SC SCH ×2 (08:20→12:50)
--- NOTE | 2017-11-01 09:56 | Progress Note ---
Subjective Date of Service: Nov 01, 2017. Subjective Pt evaluation today including: conversation w/ patient, chart review Voiding: dickens catheter in place (Patent, draining clear yellow urine with amphotericin B running) Patient remains on IV caspofungin and amphotericin B bladder irrigation. Denies pain. Doing well. Problem List Medical Problems: (1) Pyelonephritis Status: Acute Review of Systems Constitutional: No fever, No chills Respiratory: No shortness of breath Cardiac: No chest pain Abdomen: No pain, No nausea, No vomiting Female : No hematuria Heme: No abnormal bleeding/bruising Objective Vital Signs Date Time Temp Pulse Resp B/P (MAP) Pulse Ox O2 Delivery O2 Flow Rate FiO2 11/01/17 07:52 37.2 77 18 123/72 (89) 95 11/01/17 00:00 Room Air 10/31/17 23:47 36.7 75 18 128/75 (92) 92 Room Air 10/31/17 16:00 Room Air 10/31/17 15:53 36.7 73 20 128/78 (95) 93 Room Air Physical Exam General Appearance: no apparent distress Eyes: normal inspection ENT: hearing grossly normal Neck: no JVD Respiratory/Chest: no respiratory distress, no accessory muscle use Cardiovascular: no JVD Extremities: normal inspection Neurologic/Psychiatric: alert, normal mood/affect, oriented x 3 Skin: normal color Laboratory Results Last 24 Hours Test 10/31/17 11:56 10/31/17 19:47 11/01/17 06:00 11/01/17 07:44 Bedside Glucose 136 mg/dl 214 mg/dl 90 mg/dl White Blood Count 9.18 K/uL Red Blood Count 3.77 M/uL Hemoglobin 10.7 g/dL Hematocrit 33.2 % Mean Corpuscular Volume 88.1 fL Mean Corpuscular Hemoglobin 28.4 pg Mean Corpuscular Hemoglobin Concent 32.2 g/dl Platelet Count 321 K/uL Mean Platelet Volume 10.6 fL RDW Standard Deviation 48.2 fL RDW Coefficient of Variation 14.9 % Neutrophils % (Manual) 55.9 % Lymphocytes % (Manual) 18.9 % Variant Lymphocytes % (manual) 18.0 % Monocytes % (Manual) 0.9 % Eosinophils % (Manual) 4.5 % Basophils % (Manual) 1.8 % Neutrophils # (Manual) 5.13 K/uL Total Absolute Neutrophils 5.13 K/uL Lymphocytes # (Manual) 1.74 K/uL Absolute Variant Lymphocytes 1.65 K/uL Total Absolute Lymphocytes 3.39 K/uL Monocytes # (Manual) 0.08 K/uL Eosinophils # (Manual) 0.41 K/uL Basophils # (Manual) 0.17 K/uL Red Blood Cell Morphology Unremarkable Sodium Level 136 mmol/L Potassium Level 3.9 mmol/L Chloride Level 103 mmol/L Carbon Dioxide Level 27 mmol/L Anion Gap 6.0 mmol/L Blood Urea Nitrogen 9 mg/dl Creatinine 0.52 mg/dl Est Creatinine Clear Calc Drug Dose 94.2 ml/min Estimated GFR () 107.6 Estimated GFR (Non- 92.8 BUN/Creatinine Ratio 17.6 Random Glucose 91 mg/dl Calcium Level 8.9 mg/dl Magnesium Level 1.7 mg/dl Assessment and Plan POD #8 s/p left URS; fungal UTI with fevers AFVSS. Fevers resolved. Repeat urine culture preliminarily negative Patient clinically improved. Plan to discontinue Dickens catheter after amphotericin B finishes running today. IV caspofungin per ID management. Patient okay for discharge home from a perspective. She is scheduled to follow-up with Dr. Trejo next week. Will keep as scheduled. We will sign off for now. Thanks for allowing us to participate in this patient 's care. Continued [facility] stay due to: multiple IV medications needed
--- NOTE | 2017-11-01 10:45 | Progress Note ---
Subjective Date of Service: Nov 01, 2017. Subjective Pt evaluation today including: conversation w/ patient, physical exam, chart review, lab review pt seen in followup, doing well. for d/c today, finishes ampho bladder irrigation today. 9 more days caspo, s/p picc. afebrile. wbc nml. repeat blood and urine cultures negative. no abd pain, no n/v/d all remaining ros reviewed are negative Problem List Medical Problems: (1) Pyelonephritis Status: Acute Objective Vital Signs Date Time Temp Pulse Resp B/P (MAP) Pulse Ox O2 Delivery O2 Flow Rate FiO2 11/01/17 08:35 Room Air 11/01/17 07:52 37.2 77 18 123/72 (89) 95 11/01/17 00:00 Room Air 10/31/17 23:47 36.7 75 18 128/75 (92) 92 Room Air 10/31/17 16:00 Room Air 10/31/17 15:53 36.7 73 20 128/78 (95) 93 Room Air Physical Exam General Appearance: WD/WN, no apparent distress Eyes: normal inspection, EOMI Neck: supple Respiratory/Chest: lungs clear, normal breath sounds, no respiratory distress Cardiovascular: regular rate, rhythm, no edema Abdomen: non tender, soft Extremities: non-tender, no pedal edema Neurologic/Psychiatric: alert, oriented x 3 Skin: normal color Laboratory Results Item Value Date Time Urine Culture - Final Complete 10/25/17 1807 Urine , Clean Catch Yeast Not Michelle Albicans Urine Culture - Preliminary Resulted 10/30/17 1025 Urine,Catheterized NO GROWTH - LESS THAN 1,000 COLONIES/... Blood Culture - Preliminary Resulted 10/29/17 0550 Blood NO GROWTH TO DATE. Blood Culture - Preliminary Resulted 10/29/17 0506 Blood NO GROWTH TO DATE. Last 24 Hours Test 10/31/17 11:56 10/31/17 19:47 11/01/17 06:00 11/01/17 07:44 Bedside Glucose 136 mg/dl 214 mg/dl 90 mg/dl White Blood Count 9.18 K/uL Red Blood Count 3.77 M/uL Hemoglobin 10.7 g/dL Hematocrit 33.2 % Mean Corpuscular Volume 88.1 fL Mean Corpuscular Hemoglobin 28.4 pg Mean Corpuscular Hemoglobin Concent 32.2 g/dl Platelet Count 321 K/uL Mean Platelet Volume 10.6 fL RDW Standard Deviation 48.2 fL RDW Coefficient of Variation 14.9 % Neutrophils % (Manual) 55.9 % Lymphocytes % (Manual) 18.9 % Variant Lymphocytes % (manual) 18.0 % Monocytes % (Manual) 0.9 % Eosinophils % (Manual) 4.5 % Basophils % (Manual) 1.8 % Neutrophils # (Manual) 5.13 K/uL Total Absolute Neutrophils 5.13 K/uL Lymphocytes # (Manual) 1.74 K/uL Absolute Variant Lymphocytes 1.65 K/uL Total Absolute Lymphocytes 3.39 K/uL Monocytes # (Manual) 0.08 K/uL Eosinophils # (Manual) 0.41 K/uL Basophils # (Manual) 0.17 K/uL Red Blood Cell Morphology Unremarkable Sodium Level 136 mmol/L Potassium Level 3.9 mmol/L Chloride Level 103 mmol/L Carbon Dioxide Level 27 mmol/L Anion Gap 6.0 mmol/L Blood Urea Nitrogen 9 mg/dl Creatinine 0.52 mg/dl Est Creatinine Clear Calc Drug Dose 94.2 ml/min Estimated GFR () 107.6 Estimated GFR (Non- 92.8 BUN/Creatinine Ratio 17.6 Random Glucose 91 mg/dl Calcium Level 8.9 mg/dl Magnesium Level 1.7 mg/dl Assessment and Plan (1) Pyelonephritis Assessment & Plan: for d/c in am, will need 9 more days caspo. ok for d/c when otherwise stable. Continued [facility] stay due to: multiple IV medications needed
--- NOTE | 2017-11-01 13:23 | Progress Note ---
Internal Med Progress Note Date of Service: Nov 01, 2017. Provider Documentation: SUBJECTIVE: Seen and examined at bedside No complaints Eager to get discharged Diarrhea resolved Afebrile Denies chest pain, SOB Family at bedside OBJECTIVE: Vital Signs-as noted below Physical Exam: Vitals signs as noted above General Appearance:Moderately built and nourished, no apparent distress Head: normocephalic, Atraumatic Eyes: normal inspection, EOMI, PERRL Neck: supple, Trachea midline Respiratory/Chest: Normal breath sounds, CTA Cardiovascular: S1, S2, No murmur Abdomen/GI:Soft, Non tender, Bowel sounds present Extremities/Musculoskelatal:normal inspection, no edema Neurologic/Psych:AAOX3, grossly no focal neurological deficits Skin: normal color, warm Lab data as noted below. ASSESSMENT & PLAN: Patient is a 76 yr female s/p Cystoscopy, Left Ureteroscopy, Laser Lithotripsy, Stone extraction of left uretal stone removal on 10/24/17 who went home on Diflucan (patient's preop culture 10/07/17 showed lactobacillus species not michelle albicans) and Pyridium and presented with fever Michelle UTI: CT ABD: suggesting of potential low-grade left renal pyelonephritis. No evidence for abscess or collection. Left ureteral stent in good position. Blood culture 10/25/17: no growth to date Bladder irrigation with amphotericin completed Continue IV Caspofungin; Needs 9 more days of therapy PICC line placed on 10/28/17 Monitor daily labs while on antifungals Blood culture from 10/29/17: No growth Urine Culture: 10/30/17: No growth Appreciate Urology, ID Input Hypokalemia/Hypomagnesemia: Replace and Monitor Diarrhea: C.diff. negative Resolved Hypertension: Continue lisinopril HLP: continue statins DM II: continue ISS, Lantus A1C:8.5 Monitor BGs DVT px: Lovenox SQ Code Status: Full Code Disposition: Likely discharge home with Home Health today Follow up with your PCP in 1 week Follow up with your Urologist in 1 week as scheduled Followup with your Infectious disease in 2 weeks as advised Seek immediate medical attention if your symptoms reoccur or worsen Vital Signs: Date Time Temp Pulse Resp B/P (MAP) Pulse Ox O2 Delivery O2 Flow Rate FiO2 11/01/17 08:35 Room Air 11/01/17 07:52 37.2 77 18 123/72 (89) 95 11/01/17 00:00 Room Air 10/31/17 23:47 36.7 75 18 128/75 (92) 92 Room Air 10/31/17 16:00 Room Air 10/31/17 15:53 36.7 73 20 128/78 (95) 93 Room Air Lab Results: Results Past 24 Hours Test 10/31/17 19:47 11/01/17 06:00 11/01/17 07:44 11/01/17 11:40 Range/Units Bedside Glucose 214 90 144 70-90 mg/dl White Blood Count 9.18 4.8-10.8 K/uL Red Blood Count 3.77 4.2-5.4 M/uL Hemoglobin 10.7 12.0-16.0 g/dL Hematocrit 33.2 37-47 % Mean Corpuscular Volume 88.1 80-100 fL Mean Corpuscular Hemoglobin 28.4 25-34 pg Mean Corpuscular Hemoglobin Concent 32.2 32-36 g/dl Platelet Count 321 130-400 K/uL Mean Platelet Volume 10.6 7.4-10.4 fL RDW Standard Deviation 48.2 36.4-46.3 fL RDW Coefficient of Variation 14.9 11.5-14.5 % Neutrophils % (Manual) 55.9 % Lymphocytes % (Manual) 18.9 % Variant Lymphocytes % (manual) 18.0 % Monocytes % (Manual) 0.9 % Eosinophils % (Manual) 4.5 % Basophils % (Manual) 1.8 % Neutrophils # (Manual) 5.13 1.4-6.5 K/uL Total Absolute Neutrophils 5.13 1.4-6.5 K/uL Lymphocytes # (Manual) 1.74 1.2-3.4 K/uL Absolute Variant Lymphocytes 1.65 K/uL Total Absolute Lymphocytes 3.39 1.2-3.4 K/uL Monocytes # (Manual) 0.08 0.11-0.59 K/uL Eosinophils # (Manual) 0.41 0-0.5 K/uL Basophils # (Manual) 0.17 0-0.2 K/uL Red Blood Cell Morphology Unremarkable Sodium Level 136 136-145 mmol/L Potassium Level 3.9 3.5-5.1 mmol/L Chloride Level 103 98-107 mmol/L Carbon Dioxide Level 27 21-32 mmol/L Anion Gap 6.0 3-11 mmol/L Blood Urea Nitrogen 9 7-18 mg/dl Creatinine 0.52 0.60-1.20 mg/dl Est Creatinine Clear Calc Drug Dose 94.2 ml/min Estimated GFR () 107.6 Estimated GFR (Non- 92.8 BUN/Creatinine Ratio 17.6 10-20 Random Glucose 91 70-99 mg/dl Calcium Level 8.9 8.5-10.1 mg/dl Magnesium Level 1.7 1.8-2.4 mg/dl
--- NOTE | 2017-11-01 13:29 | Discharge Summary ---
Discharge Summary Date of Service Nov 01, 2017. Discharge Summary Admission Date: Oct 25, 2017 at 20:39 Discharge Date: Nov 01, 2017 Discharge Disposition: Home with services Principal Diagnosis: Complicated UTI Procedures: CT ABD: 1. Findings suggesting a potential low-grade left renal pyelonephritis. 2. No evidence for hydronephrosis. 3. Left ureteral stent in good position. 4. No evidence for abscess or collection. 5. Incidental findings as discussed above which are considered chronic. Renal USD: 1. Slight fullness left renal collecting system. 2. Left ureteral stent in good position. 3. No evidence for angel hydronephrosis. KUB: Left ureteral stent in place without nephrolithiasis or ureteral calculi identified. CXR: 1. Cardiomegaly without acute process. 2. Bibasilar opacities favor atelectasis. Consultations: Urology, ID Pending Studies/Follow-Up: Follow up with your PCP in 1 week Follow up with your Urologist in 1 week as scheduled Followup with your Infectious disease in 2 weeks as advised Seek immediate medical attention if your symptoms reoccur or worsen Medication Reconciliation Continued Medications: Ascorbic Acid (Vitamin C) 500 Mg Tab 1 TAB PO QAM Atorvastatin (Lipitor) 10 Mg Tab 10 MG PO HS, TAB Calcium/Vitamin D (Os-Stiven 500 Plus D) Tab 1 TAB PO DAILY, TAB Empagliflozin (Jardiance) 25 Mg Tab 25 MG PO DAILY Insulin Glargine (Lantus) 100 Unit/Ml Inj 45 SC QPM, VIAL Lisinopril (Bulk) (Lisinopril) 1 Pow Pow 20 MG PO DAILY Metoprolol Succinate (Toprol Xl) 25 Mg Tab 50 MG PO HS, #30 TAB Nystatin (Topical) (Nystatin) 100,000 Unit/Gm Oin 1 APPLN TOP TID for 5 Days, #15 GM 1 Refill Oxycodone/Acetaminophen 7.5MG/325MG (Percocet 7.5MG/325MG) Tab 1 TAB PO Q8 PRN for Pain, TAB PT DID NOT FILL PERSCRIPTION Phenazopyridine HCl (Pyridium) 200 Mg Tab 200 MG PO TID for Bladder Pain, #6 TAB Tamsulosin Hcl (Flomax) 0.4 Mg Cap 0.4 MG PO DAILY, CAP Tocopheryl Acet,Dl-Alpha (Vitamin E) 100 Interunit Cap 1 CAP PO QAM Discontinued Medications: Cephalexin (Keflex) 500 Mg Cap 500 MG PO Q6H for 10 Days, #40 CAP STARTED 10/24/17 FOR 6 MORE DOSES. Fluconazole (Diflucan) 100 Mg Tab 100 MG PO DAILY, TAB Admission Information HPI (per Admitting provider): CHIEF COMPLAINT: Weakness, fever. HISTORY OF PRESENT ILLNESS: History obtained from the patient, family, and records. Medical history is significant for hypertension, DM2, insulin requiring, urolithiasis, past tobacco abuse. Recent confinement last September 2017 for obstructing left kidney stone. Patient underwent ureteral stent placement. Cultures grew Florencio glabrata. Yesterday, patient underwent cystoscopy, left ureteroscopy, lithotripsy, stone extraction and stent exchange at same day surgery. Patient discharged on Keflex, 3-day course of fluconazole and 5 day course of Nystatin. This morning, patient was not feeling well. Generalized weakness, fever, no chest pain, some nausea. Patient denies flank pain, hematuria. Brought to Emergency Room by family. CAT scan showed potential low grade left renal pyelonephritis, left ureteral stent in good position, no abscess. Patient is given Cipro and Zosyn in the ER. Physical Exam (per Admitting): PHYSICAL EXAMINATION: VITAL SIGNS: Blood pressure was noted to be 104/62, later SBP 90s, pulse rate 90, RR 20, temperature 39.3 O2 sats 90 on room air. GENERAL: Noted to be comfortable, obese, no respiratory distress. SKIN: Normal color, warm. HEENT: [place] palpebral conjunctivae. No ptosis. Dry mucosa. NECK: Short, supple. CHEST: CTA, No tenderness. HEART: RRR, no murmur. ABDOMEN: Some distention, nontender. Healed incisional scar. EXTREMITIES: No LE edema noted. No tenderness, no gross deformities NEUROLOGIC: Coherent. No gross focality. Hospital Course Patient is a 76 yr female s/p Cystoscopy, Left Ureteroscopy, Laser Lithotripsy, Stone extraction of left uretal stone removal on 10/24/17 who went home on Diflucan (patient's preop culture 10/07/17 showed lactobacillus species not florencio albicans) and Pyridium and presented with fever Florencio UTI: CT ABD: suggesting of potential low-grade left renal pyelonephritis. No evidence for abscess or collection. Left ureteral stent in good position. Blood culture 10/25/17: no growth to date Bladder irrigation with amphotericin completed Continue IV Caspofungin; Needs 9 more days of therapy PICC line placed on 10/28/17 Monitor daily labs while on antifungals Blood culture from 10/29/17: No growth Urine Culture: 10/30/17: No growth Appreciate Urology, ID Input Hypokalemia/Hypomagnesemia: Replace and Monitor Diarrhea: C.diff. negative Resolved Hypertension: Continue lisinopril HLP: continue statins DM II: continue ISS, Lantus A1C:8.5 Monitor BGs DVT px: Lovenox SQ Code Status: Full Code Disposition: Likely discharge home with Home Health today Follow up with your PCP in 1 week Follow up with your Urologist in 1 week as scheduled Followup with your Infectious disease in 2 weeks as advised Seek immediate medical attention if your symptoms reoccur or worsen Total time spent on discharge = 34 minutes This includes examination of the patient, discharge planning, medication reconciliation, and communication with other providers. Discharge Instructions Discharge Instructions Date of Service Nov 01, 2017. Admission Reason for Admission: Complicated Urinary Tract Infection Discharge Discharge Diagnosis / Problem: Complicated UTI Discharge Goals Goal(s): Decrease discomfort, Improve function Activity Recommendations Activity Limitations: resume your previous activity Exercise/Sports Limitations: as tolerated . Instructions / Follow-Up Instructions / Follow-Up Follow up with your PCP in 1 week Follow up with your Urologist in 1 week as scheduled Followup with your Infectious disease in 2 weeks as advised Seek immediate medical attention if your symptoms reoccur or worsen Current Hospital Diet Patient's current hospital diet: Diabetes Type 2 Diet, AHA Diet (Heart Healthy) Discharge Diet Recommended Diet: AHA Diet (Heart Healthy), Diabetes Type 2 Diet Pending Studies Studies pending at discharge: no Laboratory Results Hemoglobin A1c Test 09/28/17 06:50 Range/Units Estimated Average Glucose 197 mg/dl Hemoglobin A1c 8.5 H 4.5-5.6 % Lipid Panel Test 09/28/17 06:50 Range/Units Triglycerides Level 225 H 0-150 mg/dl Cholesterol Level 91 0-200 mg/dl HDL Cholesterol 10 mg/dl Cholesterol/HDL Ratio 9.1 LDL Cholesterol, Calculated 36 mg/dl Medical Emergencies . Who to Call and When: Medical Emergencies: If at any time you feel your situation is an emergency, please call 911 immediately. . Non-Emergent Contact Non-Emergency issues call your: Primary Care Provider, Urologist Call Non-Emergent contact if: you have a fever, your pain is not controlled, your pain is worsening, your pain is unusual for you, your pain is concerning you, you have any medication questions Seek immediate medical attention if your symptoms reoccur or worsen . . "Provider Documentation" section prepared by Jaden Saeed. .
[2017-11-01] MEDS ORDERED: MAGNESIUM OXIDE 400 MG TAB PO ONE (13:30)
[2017-11-01 13:32] VITALS: BP 123/72; PULSE 77; TEMP 37.2; O2SAT 95
== END 2017-11-01 14:12 | disposition home health service (06) | DRG 699 ==
LOC: C.EDB 15:00 → C.4E 20:39 → ENRESERV 21:03
PROVIDERS: ADMIT Hospitalist; ATTEND Internal Medicine
PROC: 02HV33Z Insertion of Infusion Device into Superior Vena Cava, Percutaneous Approach (ICD-10-PCS; principal; 2017-10-28)
DX: T83.511A Infection and inflammatory reaction due to indwelling urethral catheter, initial encounter (principal); N12 Tubulo-interstitial nephritis, not specified as acute or chronic; I10 Essential (primary) hypertension; E11.9 Type 2 diabetes mellitus without complications; D64.9 Anemia, unspecified; N39.0 Urinary tract infection, site not specified; E87.6 Hypokalemia; E83.42 Hypomagnesemia; R19.7 Diarrhea, unspecified; Z79.4 Long term (current) use of insulin; Z88.2 Allergy status to sulfonamides; Z90.49 Acquired absence of other specified parts of digestive tract; Z87.442 Personal history of urinary calculi; Z87.891 Personal history of nicotine dependence; Z80.9 Family history of malignant neoplasm, unspecified; Z82.49 Family history of ischemic heart disease and other diseases of the circulatory system

== ENCOUNTER → 2017-11-26 | Outpatient (CLI) | payer OTHER, BC ==
[~2017-11-26] MED LIST changes: -CEPH-571 PO; -FLUC100T4 PO; -PHEN-775 PO; +PHEN-876 PO
--- NOTE | 2017-11-26 10:49 | DIAGNOSTIC IMAGING REPORT ---
CT OF THE ABDOMEN AND PELVIS WITHOUT CONTRAST CLINICAL HISTORY: Kidney stones. COMPARISON STUDY: CT of the abdomen and pelvis October 25, 2017. TECHNIQUE: Axial images of the abdomen and pelvis were obtained without IV contrast. Images were reviewed in the axial, sagittal, and coronal planes. A dose lowering technique was utilized adhering to the principles of ALARA. FINDINGS: No renal, ureteral or bladder calculi are present. The left ureteral stent has been removed since exam of October 25, 2017. Mild left perinephric infiltration has diminished. There is no hydronephrosis or hydroureter. Mild renal cortical thinning is noted. A 4 mm left lower lobe pulmonary nodule is similar to exam of October 15, 2013. This is benign. Unenhanced images of the liver, spleen, adrenal glands and pancreas are unremarkable. There is extensive atherosclerotic calcification of the splenic artery. The anastomosis is noted. There is no evidence for a bowel obstruction. There is colonic diverticulosis without evidence for acute diverticulitis. No lymphadenopathy is present. There are no suspicious osseous lesions. No ascites is present. The gallbladder is nonvisualized. Several fat-containing ventral hernias are noted. IMPRESSION: 1. No urinary calculi or hydronephrosis. Interval removal of the left ureteral stent. Mild left perinephric infiltration which has diminished since CT of October 25, 2017. 2. No acute process within the abdomen or pelvis on unenhanced exam. Electronically signed by: Mikie Nam M.D. 11/26/2017 10:48 AM Dictated Date/Time: 11/26/2017 10:40 AM
== END | disposition home or self-care (01) ==
LOC: C.CTS 10:06
PROVIDERS: ATTEND Urology
DX: N20.0 Calculus of kidney (principal)

== ENCOUNTER → 2018-01-31 | Outpatient (CLI) | payer BC ==
--- NOTE | 2018-01-31 11:44 | DIAGNOSTIC IMAGING REPORT ---
(TATO/BLAD)RETROPERITON COMP HISTORY: 77 years-old Female B49 Fungus present in [id number] acute urinary tract infection COMPARISON: CT abdomen and pelvis 11/26/2017, renal ultrasound 10/25/2017 TECHNIQUE: Multiple real-time sonogram images of the kidneys and bladder were obtained assessing grayscale appearance and color flow FINDINGS: Right kidney measures 11.6 cm in length. Mild cortical thinning is noted throughout. No right-sided renal calculi, hydronephrosis or suspicious mass lesions. Mild pelviectasis is likely physiologic. Left kidney measures 12.1 cm in length and also demonstrates mild cortical thinning. 9 mm cyst of the interpolar left kidney. No left-sided renal calculi or hydronephrosis. The bladder is unremarkable with bilateral ureteral jets present. IMPRESSION: 1. Mild bilateral cortical thinning of the kidneys without renal calculi or hydronephrosis. 2. 9 mm cyst of the interpolar left kidney. 3. Unremarkable sonographic appearance of the urinary bladder. The above report was generated using voice recognition software. It may contain grammatical, syntax or spelling errors. Electronically signed by: Johnson Gamble M.D. 01/31/2018 11:43 AM Dictated Date/Time: 01/31/2018 11:41 AM
== END | disposition home or self-care (01) ==
LOC: C.ULTR 10:18
PROVIDERS: ATTEND Urology
DX: B49 Unspecified mycosis (principal); N28.1 Cyst of kidney, acquired